=== PATIENT | male | born 1955 | race Caucasian/White ===

== ENCOUNTER 2023-01-25 10:07 | Outpatient (REF) | payer OTHER, SELFPAY ==
[2023-01-25 11:21] LABS: MANUAL DIFF FLAG NO
[2023-01-25 11:41] LABS: Basophils Absolute Auto 0.1 X10*3/uL (0.0-0.2); Basophils Percent Auto 1.1 % (0-2); Eosinophils Absolute Auto 0.2 X10*3/uL (0.0-0.4); Eosinophils Percent Auto 2.5 % (0-4); Hematocrit 42.1 % (42.0-52.0); Hemoglobin 13.7 g/dl (14.0-18.0); Imm Gran Abs Auto 0.01 X10*3/uL (0.00-0.03); Imm Gran Pct Auto 0.2 % (0.0-0.4); Lymphocytes Absolute Auto 2.1 X10*3/uL (1.2-4.9); Lymphocytes Percent Auto 32.2 % (20-40); Mean Corpuscular HGB Conc 32.5 g/dl (31.0-36.0); Mean Corpuscular Hemoglobin 30.6 pg (27.0-33.0); Mean Corpuscular Volume 94.2 fL (80.0-98.0); Mean Platelet Volume 10.3 fL (9.4-12.4); Monocytes Absolute Auto 0.5 X10*3/uL (0.1-1.2); Monocytes Percent Auto 7.6 % (2-11); Neutrophils Absolute Auto 3.6 x10*3/uL (2.0-8.3); Neutrophils Percent Auto 56.4 % (45-73); Platelet Count 282 X10*3/uL (160-400); Red Blood Count 4.47 X10*6/uL (4.60-5.80); Red Cell Distribution Width 12.1 % (11.0-16.0); White Blood Count 6.5 X10*3/uL (4.8-10.8)
[2023-01-25 12:50] LABS: Alanine Aminotransferase 18 U/L (0-40); Albumin Level 4.1 g/dL (3.5-5.0); Alkaline Phosphatase 71 U/L (39-117); Anion Gap 11 (12-20); Aspartate Amino Transferase 22 U/L (5-37); Bilirubin Total 0.6 mg/dL (0.0-1.0); Blood Urea Nitrogen 12 mg/dL (9-16); Calcium 9.3 mg/dL (8.4-10.2); Carbon Dioxide 28 mmol/L (22-29); Chloride 103 mmol/L (96-108); Cholesterol 219 mg/dL; Estimated Glomerular Filt Rate > 60; Glucose Fasting 105 mg/dL (60-99); HDL Cholesterol 61 mg/dL; LDL Cholesterol Calculated 143 mg/dl; Potassium 4.8 mmol/L (3.3-5.1); Sodium 137 mmol/L (135-145); TSH reflex Free T4 1.77 uIU/mL (0.32-4.0); Total Protein 7.2 g/dL (6.5-8.0); Triglycerides 77 mg/dL
[2023-01-31 22:29] LABS: PSA, Ultra Sensitive 1.81 ng/mL
== END 2023-01-25 10:08 | disposition home or self-care (01) ==
LOC: HO.WFDLDS 10:07
PROVIDERS: Visit Provider Nurse Practitioner Family
DX: Z00.00 Encounter for general adult medical examination without abnormal findings (principal); Z12.5 Encounter for screening for malignant neoplasm of prostate
CPT/HCPCS: 36415; 80053; 80061; 84153; 84443; 85025

== ENCOUNTER 2023-01-28 12:45 | Outpatient (REF) | payer OTHER, SELFPAY ==
[2023-01-28 14:49] LABS: Appearance Urine Clear; Color Urine Yellow; Glucose Urine UA Negative (Negative); Leukocyte Esterase Urine Negative (Negative); Nitrite Urine Negative (Negative); Urine Blood Negative (Negative); Urine Ketones Negative (Negative); Urine Protein Negative (Neg-Trace)
== END 2023-01-28 12:46 | disposition home or self-care (01) ==
LOC: HO.WFDLDS 12:45
PROVIDERS: Visit Provider Nurse Practitioner Family
DX: Z00.00 Encounter for general adult medical examination without abnormal findings (principal)
CPT/HCPCS: 81003

== ENCOUNTER 2023-02-05 13:01 | Outpatient (AMB) | payer OTHER, SELFPAY ==
[2023-02-05 13:08] VITALS: BP 154/72; PULSE 67; RESP 13; TEMP 36.6; O2SAT 99; BMI 27.8
--- NOTE | 2023-02-05 13:08 | MHC.PC.OV ---
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 Accompanied by: Self / Same As Patient Allergies No Known Allergies Allergy (Verified 02/05/23 13:19) Medication List - Last Reconciled 02/05/23 by Kathy Davenport CNP No Known Home Meds Tobacco use date assessed: 01/07/23 Fall risk assessment: No Falls in past year Last assessed Fall Risk: 02/05/23 Dental Screening Dental Screen Date: 02/05/23 Did you have a dental visit in the last 12 months?: Yes Did you have a dental problem in the last 6 months where you did not have access to dental care?: No Was dental information given to patient?: Patient has dentist HPI HPI Comments History of Present Illness Details 68-year-old male presents for recent labs review. He establish care a month ago and had blood work done. No acute symptoms. He notes that was contacted by Ophthalmology and will schedule an appointment. He has not been contacted by Gastroenterology. [facility] Medical History No pertinent past medical history Surgical History History of arthroscopic surgery of shoulder Family History Father Stomach cancer Social History Housing: House Patient Tobacco Use Status: Former Tobacco user e-Cigarette/Vaping Use: Never Used service: No Current occupational status: retired Cognitive needs: No Hearing needs: No Vision needs: Yes Review of Systems Const Details: Const Denies chills, Denies fatigue, Denies fever(s), Denies headache(s) and Denies weakness ENT Denies dizziness and Denies headache(s) Card Denies chest pain, Denies lightheadedness, Denies dyspnea and Denies other (Palpitations) Resp Denies cough, Denies dyspnea, Denies wheezing and Denies other ( shortness of breath) GI Denies abdominal pain, Denies melena, Denies hematochezia, Denies change in bowel habits, Denies dyspepsia and Denies nausea Denies hematuria and Denies dysuria Musc Denies abnormal gait, Denies myalgias, Denies arthralgias, Denies numbness and Denies tingling Skin/Breast Denies rash, Denies unusual bruising and Denies wounds Neuro Denies abnormal gait, Denies dizziness, Denies headache(s), Denies memory loss, Denies numbness, Denies Sensory deficit (Neuro), Denies tingling and Denies weakness Psych Denies anxiety and Denies depression Endo Denies fatigue Aller/Immun Denies wheezing Physical exam (Primary Care) Vital Signs: Last Vital Signs Temp 97.9 F 02/05/23 13:08 Pulse 67 02/05/23 13:08 Resp 13 02/05/23 13:08 BP 154/72 H 02/05/23 13:08 Pulse Ox 99 02/05/23 13:08 Oxygen Delivery Method Room Air 02/05/23 13:08 BMI result Body Mass Index 27.8 Tobacco/Smoking Status: Tobacco use Status Tobacco use date assessed 01/07/23 02/05/23 13:15 Patient Tobacco Use Status Former Tobacco user 02/05/23 13:15 e-Cigarette/Vaping Use Never Used 02/05/23 13:15 Const Other: General: no acute distress and well developed Nutritional Appearance: well nourished Orientation/consciousness: patient oriented x3 HENMT Head: Yes normocephalic and Yes atraumatic Eyes General: appearance normal, both eyes and all related structures Pupils: Equal, round and reactive pupils present EOM: EOMs intact bilaterally Resp Effort & Inspection: normal respiratory effort Auscultation: clear to auscultation bilaterally Cardio Rate: regular rate Rhythm: regular rhythm Heart sounds: S1 normal heart sound present, S2 normal heart sound present, no gallops, no murmurs and no rubs GI Palpation (GI): No Abdominal aortic bruit present, Soft to palpation, nontender, No hepatosplenomegaly present and No Rebound tenderness present Auscultation: normal bowel sounds General: Yes no CVA tenderness Back/Spine/Pelvis Back: no CVA tenderness Cervical Spine: cervical ROM normal and No Cervical spine tenderness Thoracic/Lumbar Spine: thoraco-lumbar ROM normal, No pain with thoraco-lumbar ROM, No thoracic spinal tenderness and No lumbar spinal tenderness Extrem General: Yes normal to inspection, No edema and No calf tenderness Skin General: warm and dry. Normal skin color. Normal skin turgor Lesions: no lesions Rashes: no rashes Trauma: no lacerations or abrasions Wounds: no wounds Nails: normal Neuro General: patient oriented x3, gait normal and no focal neuro deficit Cranial nerves: Yes Equal, round and reactive pupils present Cognition (Neuro): normal cognition Gait exam (Neuro): Normal gait present Sensory Exam: No Sensory deficit (Neuro) Psych Affect: normal affect Assessment and Plan Assessment & Plan (1) Elevated fasting glucose: Code(s): R73.01 - Impaired fasting glucose Plan: Recent lab results review with the patient His fasting glucose was slightly elevated Fasting glucose ordered. Advised to fast for at least 10-12 hours before getting blood work done. May drink water Verbalized understanding and agreed with the plan (2) Hypercholesterolemia: Code(s): E78.00 - Pure hypercholesterolemia, unspecified Plan: Recent lab results review with the patient Total cholesterol and LDL were slightly elevated Advised to limit foods high in saturated fat and avoid foods high in trans fat Routine exercise encouraged Verbalized understanding and agreed with the plan. (3) Elevated BP without diagnosis of hypertension: Code(s): R03.0 - Elevated blood-pressure reading, without diagnosis of hypertension Plan: Blood pressure was elevated upon arrival Resting blood pressure is 138/70, within goal of less than 140/90 Low-sodium diet and routine exercise encouraged Follow-up with PCP in 2 months Verbalized understanding and agreed with treatment plan. Orders: Orders Glucose Fasting Today R73.01 - Impaired fasting glucose Coding Level of Care Code Est Pt Level 3 (39093) Diagnoses Elevated fasting glucose R73.01 Hypercholesterolemia E78.00 Elevated BP without diagnosis of hypertension R03.0 Time Spent (min) 25
[2023-02-05 13:34] VITALS: BP 138/70
== END 2023-02-05 13:43 | disposition home or self-care (01) ==
PROVIDERS: PCP Hospitalist; Visit Provider Nurse Practitioner Family
DX: R73.01 Impaired fasting glucose (principal); E78.00 Pure hypercholesterolemia, unspecified; R03.0 Elevated blood-pressure reading, without diagnosis of hypertension
CPT/HCPCS: 99213

== ENCOUNTER 2023-02-19 13:57 | Outpatient (AMB) | payer OTHER, SELFPAY ==
--- NOTE | 2023-02-19 13:59 | MHC.OFFVIS ---
Intake Vital Signs 02/19/23 14:01 Height 5 ft 8 in Weight 180 lb BMI 27.4 BP 142/82 H Blood Pressure Location Lt brachial Position Sitting Pulse 80 Intake Visit Reasons: pre colonoscopy screening Intake Note: Patient new consult for 3rd pre colonoscopy screening. Patient denies any GI issues. 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 He has a good appetite He is retired, he does drink alcohol typically when he golfs He has no respiratory or cardiac issues He had a knee injury the other day when he jumped off a something that was higher than he had expected. Causes him to limp has been taking ibuprofen pretty regularly, he has an appointment in the next couple weeks with his PCP. He does have swelling, there was no laceration. [facility] Medical History (Updated 02/20/23 @ 09:40 by Annie Sepulveda PA-C) No pertinent past medical history Surgical History History of arthroscopic surgery of shoulder Family History Father Stomach cancer Social History (Updated 02/19/23 @ 14:07 by Annie Sepulveda PA-C) Housing: House Alcohol intake: current Patient Tobacco Use Status: Former Tobacco user e-Cigarette/Vaping Use: Never Used service: No Current occupational status: retired Cognitive needs: No Hearing needs: No Vision needs: Yes Review of Systems Const All systems reviewed & are unremarkable except as noted in HPI and below Card Denies chest pain and Denies dyspnea Resp Denies dyspnea GI Denies abdominal pain, Denies hematochezia, Denies change in bowel habits, Denies change in stool character, Denies constipation, Denies heartburn and Denies vomiting Musc Reports abnormal gait and Reports joint swelling Neuro Reports abnormal gait Physical Exam Vital Signs: Last Vital Signs Pulse 80 02/19/23 14:01 BP 142/82 H 02/19/23 14:01 BMI result Body Mass Index 27.4 Const General: cooperative, healthy appearing and no acute distress Orientation/consciousness: patient oriented x3 Limitations: no limitations Cardio Rate: regular rate Rhythm: regular rhythm Heart sounds: S1 normal heart sound present and S2 normal heart sound present GI Palpation (GI): Soft to palpation and nontender Auscultation: normal bowel sounds Skin General skin exam: no rashes or lesions noted and other (sun tanned) Neuro General: patient oriented x3 Extrem General: Yes full ROM Right lower extremity: knee Details: tenderness (mild) and swelling Psych Appearance: grossly normal and well kempt Mental Status: mental status grossly normal Speech and movement: Clear speech present Affect: Labile affect present Attitude: cooperative Thought process: Normal thought process present Thought content: Normal thought content present Insight: Good insight present (Psych) Judgement: Good judgement present (Psych) Assessment & Plan Assessment & Plan (1) Right knee injury: Comment: Go to [facility]- Swelling- pulses+ +ROM omeprazole -20 mg- while taking IBU Code(s): S89.91XA - Unspecified injury of right lower leg, initial encounter (2) Encounter for screening colonoscopy: Comment: Due for average risk screening colonoscopy Discussed procedure, prep, need for escorted due to anesthesia and rare risks Code(s): Z12.11 - Encounter for screening for malignant neoplasm of colon Plan: Screening colonoscopy Plan Colonoscopy- MG prep Orders: Orders Colonoscopy - GI Use Only 02/19/23 Z12.11 - Encounter for screening for malignant neoplasm of colon XR knee RT 3V 02/19/23 S89.91XA - Unspecified injury of right lower leg, initial encounter Medications: New omeprazole 20 mg PO DAILY 30 caps 5RF bisacodyl (Dulcolax (bisacodyl)) Take 4 tablets by mouth at 12:00pm the day before your procedure. 20 mg (4 x 5 mg) PO ONCE 1 day 4 tabs 0RF colonoscopy prep Z12.11 - Encounter for screening for malignant neoplasm of colon polyethylene glycol 3350 (Miralax) Take as directed by mouth the day before your procedure. 238 grams PO ONCE 1 day PRN 238 grams 0RF laxative effect Patient Instructions: A pleasant 68-year-old male referred for screening colonoscopy presents with right knee injury U/C for right knee injury- swelling- put in for a an x-ray a however encouraged him to go to urgent care today has their expertise will serve him well Screening colonoscopy, MiraLax Gatorade prep literature given Encouraged to call with questions or concerns Appreciate the opportunity assist in the care the patient Coding Level of Care Code New Pt Level 4 (67150) Diagnoses Right knee injury S89.91XA Encounter for screening colonoscopy Z12.11 Time Spent (min) 30
[2023-02-19 14:01] VITALS: BP 142/82; PULSE 80; BMI 27.4
== END 2023-02-19 15:06 | disposition home or self-care (01) ==
LOC: HO.HGIW 13:57
PROVIDERS: PCP Hospitalist; Visit Provider Physician Assistant
DX: Z01.818 Encounter for other preprocedural examination (principal); Z12.11 Encounter for screening for malignant neoplasm of colon; S89.91XA Unspecified injury of right lower leg, initial encounter
CPT/HCPCS: S0285

== ENCOUNTER → 2023-02-19 13:57 | Outpatient (BNVA) | payer OTHER, SELFPAY | PROVIDERS: PCP Hospitalist; Visit Provider Physician Assistant ==

== ENCOUNTER 2023-02-20 10:55 | Outpatient (AMB) | payer OTHER, SELFPAY ==
--- NOTE | 2023-02-20 10:58 | MHC.OFFWIV ---
Intake Vital Signs 02/20/23 11:00 Height 5 ft 8 in Weight 81.647 kg BMI 27.4 BP 158/70 H Blood Pressure Location Lt brachial Position Sitting Pulse 78 Pulse Source Pulse Oximeter Temp 96.9 F Temp Source Temporal Artery Scan Pulse Oximetry (%) 98 Oxygen Delivery Method Room Air Intake Visit Reasons: EST/right knee pain Intake Note: Pt is here c/o right knee pain. Pt states no falls or injuries. Patient Tobacco Use Status: Former Tobacco user Allergies No Known Allergies Allergy (Verified 02/20/23 10:59) Do you need a note to return to daycare/school/sports/work: No HPI HPI Comments History of Present Illness Details 1110 68-year-old male presents with atraumatic right-sided knee pain, going on for the past few weeks worsening over the past few days. Patient reports pain is worse with movement better at rest. Denies fevers, chills, numbness, tingling, chest pain, shortness of breath, trauma, nausea, vomiting, headache, vision changes, dizziness and weakness. Denies skin changes. No previous issues with right knee. PE w/ No lower extremity edema.? No calf ttp. 5/5 strength to bilateral upper and lower extremities 2+ popliteal, anterior tibialis, posterior tibialis and dorsalis pedis pulses equal bilateral, no foot drop normal sensation distally full range of motion, painless to bilateral knees, ankles. No step-offs or deformities. Negative anterior, posterior drawer, negative valgus and varus. No laxity. + small effusion to R. knee Likely sprain, strain versus inflammatory arthritis w/ a/c effusion. Unlikely gout, pseudogout, septic joint, threat to Limb, neurovascular compromise, arterial or venous occlusion. Unlikely fracture, dislocation. Unlikely acute ligament or tendon injury. Plan will send short course of prednisone for suspected inflammatory arthritis reba wrap applied. Xray ordered. Educated patient on diagnosis and treatment plan, answered all question, patient verbalizes understanding. At this time patient will be discharged home, advised to return with new or worsening symptoms. Educated on worrisome signs and symptoms and when to return. At this time I feel comfortable discharge home. [facility] Medical History No pertinent past medical history Surgical History History of arthroscopic surgery of shoulder Family History Father Stomach cancer Social History Housing: House Alcohol intake: current Patient Tobacco Use Status: Former Tobacco user e-Cigarette/Vaping Use: Never Used service: No Current occupational status: retired Cognitive needs: No Hearing needs: No Vision needs: Yes Review of Systems Const Details: Constitutional : No Weight loss, No Fever, No Chills, No Fatigue, No Malaise ENT/Mouth : No sore throat, No Rhinorrhea Eyes: No Eye Pain, No Swelling, No Redness Cardiovascular : No Chest Pain, No SOB, No Dyspnea on Exertion, No Orthopnea, No Edema, No Palpitations Respiratory : No Cough, No Sputum, No Wheezing Gastrointestinal : No Nausea, No Vomiting, No Diarrhea, No Constipation, No abdominal Pain, No Hematochezia, No Melena Genitourinary : No Dysuria, No Urinary Frequency, No Hematuria, Musculoskeletal : + joint pain, No Myalgias, No Joint Swelling Skin : No Skin Lesions, No rash Neuro : No Weakness, No Numbness, No Dizziness, No Headache Psych : No Anxiety/Panic, No Depression All other systems reviewed and are negative All systems reviewed & are unremarkable except as noted in HPI and below Physical Exam Vital Signs: Last Vital Signs Temp 96.9 F 02/20/23 11:00 Pulse 78 02/20/23 11:00 BP 158/70 H 02/20/23 11:00 Pulse Ox 98 02/20/23 11:00 Oxygen Delivery Method Room Air 02/20/23 11:00 BMI result Body Mass Index 27.4 Vital signs stable Appearance: Alert.? Oriented X3.? No acute distress.? Head: Normocephalic, atraumatic, no step-offs or deformities Eyes: Pupils equal, round and reactive to light.? CVS: Normal heart rate and rhythm.? Pulses normal.? Respiratory: No respiratory distress.? Breath sounds normal.? Skin: Skin warm and dry.? Normal skin color.? Normal skin turgor.?+ small effusion to R. knee Extremities: No lower extremity edema.? No calf ttp. 5/5 strength to bilateral upper and lower extremities 2+ popliteal, anterior tibialis, posterior tibialis and dorsalis pedis pulses equal bilateral, no foot drop normal sensation distally full range of motion, painless to bilateral knees, ankles. No step-offs or deformities. Negative anterior, posterior drawer, negative valgus and varus. No laxity. Neuro: Oriented X 3.? No motor deficit.? No sensory deficit. CN 2-12 intact . Ambulating with steady gait normal coordination Assessment & Plan Assessment & Plan (1) Right knee pain: Code(s): M25.561 - Pain in right knee Plan TAKE YOUR MEDICATIONS PRESCRIBED. IF YOU WERE PRESCRIBED ANTIBIOTICS TODAY, IT IS IMPORTANT THAT YOU TAKE YOUR MEDICATION TO THEIR ENTIRETY, DO NOT SKIP ANY DOSES, DO NOT FINISH THEM EARLY. FOLLOW-UP WITH YOUR PRIMARY CARE PROVIDER THIS WEEK. RETURN TO THE EMERGENCY DEPARTMENT WITH NEW OR WORSENING SYMPTOMS. SUCH FEVERS, CHILLS, CHEST PAIN, SHORTNESS OF BREATH, NAUSEA, VOMITING, DIZZINESS, HEADACHE, VISION CHANGES, LETHARGY IN CASE OF EMERGENCY CALL 911 Orders: Orders XR knee RT 2V Today M25.561 - Pain in right knee Medications: New prednisone 40 mg (2 x 20 mg) PO DAILY 10 tabs 0RF 5 days Coding Level of Care Code Est Pt Level 3 (26488) Diagnoses Right knee pain M25.561
[2023-02-20 11:00] VITALS: BP 158/70; PULSE 78; TEMP 36.1; O2SAT 98; BMI 27.4
== END 2023-02-20 12:44 | disposition home or self-care (01) ==
PROVIDERS: PCP Hospitalist; Visit Provider Physician Assistant
DX: M25.561 Pain in right knee (principal)
CPT/HCPCS: 99213

== ENCOUNTER 2023-02-20 11:17 | Outpatient (REF) | payer OTHER, SELFPAY ==
--- NOTE | ~2023-02-20 | XR_ITS ---
EXAMINATION: XR KNEE, RIGHT CLINICAL INFORMATION: Pain COMPARISON: None available. TECHNIQUE: Four views of the right knee. FINDINGS: No acute visible fracture or dislocation. Mild multicompartment arthritic changes. Joint spaces and alignment are otherwise maintained. Moderate to large joint effusion. Soft tissues are unremarkable. Atherosclerotic calcifications are noted. XR/XR knee RT 4V IMPRESSION: 1. No acute visible fracture or dislocation. 2. Mild multicompartment arthritic changes. 3. Moderate to large joint effusion.
== END 2023-02-20 11:18 | disposition home or self-care (01) ==
LOC: HO.HMGCX 11:17
PROVIDERS: PCP Hospitalist; Visit Provider Physician Assistant
DX: M25.561 Pain in right knee (principal)
CPT/HCPCS: 73564

== ENCOUNTER 2023-02-26 16:24 | Outpatient (AMB) | payer OTHER, SELFPAY ==
[2023-02-26 16:29] VITALS: BP 150/82; PULSE 73; RESP 12; TEMP 36.4; O2SAT 99; BMI 28.2
--- NOTE | 2023-02-26 16:29 | MHC.PC.OV ---
Vital Signs 02/26/23 16:29 Height 5 ft 8 in Weight 185 lb 6 oz BMI 28.2 BP 150/82 H Blood Pressure Location Lt brachial Position Sitting Respiration 12 Pulse 73 Pulse Source Pulse Oximeter Temp 97.6 F Temp Source Temporal Artery Scan Pulse Oximetry (%) 99 Oxygen Delivery Method Room Air Intake Visit Reasons: R knee injury Intake Note: Patient states that he had x-rays done on his knee, x-ray showed fluid in the knee and possible arthritis. Patient states he is seeing someone at Ortho at [facility]. Patient would like prednisone refilled. Svp Marketing Required: No Accompanied by: self Allergies No Known Allergies Allergy (Verified 02/26/23 16:36) Medication List - Last Reconciled 02/26/23 by Kathy Davenport CNP prednisone 40 mg (2 x 20 mg) PO DAILY 5 days Tobacco use date assessed: 01/07/23 Fall risk assessment: No Falls in past year Last assessed Fall Risk: 02/26/23 Dental Screening Dental Screen Date: 02/26/23 Did you have a dental visit in the last 12 months?: Yes Did you have a dental problem in the last 6 months where you did not have access to dental care?: No Was dental information given to patient?: Patient has dentist HPI HPI Comments History of Present Illness Details 68-year-old male presents with complaints of right knee pain follow-up. He notes the pain has been ongoing for the past 3 weeks. He started experiencing the pain after he twisted his knee while helping his friend with some work on a trailer. [place] [facility] [place] for right knee pain, x-ray ordered, prednisone prescribed daily for 5 days. X-ray revealed the following: IMPRESSION: 1.? No acute visible fracture or dislocation. 2.? Mild multicompartment arthritic changes. 3.? Moderate to large joint effusion. He reports persistent pain with has significantly improved since he started taking prednisone. He denies tingling, numbness, or loss of sensation. He notes he has a [place] [facility] [place] [facility] Medical History No pertinent past medical history Surgical History History of arthroscopic surgery of shoulder Family History Father Stomach cancer Social History Housing: House Alcohol intake: current Patient Tobacco Use Status: Former Tobacco user e-Cigarette/Vaping Use: Never Used service: No Current occupational status: retired Cognitive needs: No Hearing needs: No Vision needs: Yes Review of Systems Const Details: Const Denies chills, Denies fatigue, Denies fever(s), Denies headache(s) and Denies weakness ENT Denies dizziness and Denies headache(s) Card Denies chest pain, Denies lightheadedness, Denies dyspnea and Denies other (Palpitations) Resp Denies cough, Denies dyspnea, Denies wheezing and Denies other ( shortness of breath) GI Denies abdominal pain, Denies melena, Denies hematochezia, Denies change in bowel habits, Denies dyspepsia and Denies nausea Denies hematuria and Denies dysuria Musc Reports as per HPI Skin/Breast Denies rash, Denies unusual bruising and Denies wounds Neuro Denies reports unsteady gait, Denies dizziness, Denies headache(s), Denies memory loss, Denies numbness, Denies Sensory deficit (Neuro), Denies tingling and Denies weakness Psych Denies anxiety, Denies depression, Denies memory loss Endo Denies cold intolerance, Denies fatigue, Denies heat intolerance, Denies polydipsia and Denies polyuria Aller/Immun Denies wheezing Physical exam (Primary Care) Tobacco/Smoking Status: Tobacco use Status Tobacco use date assessed 01/07/23 02/21/23 08:26 Patient Tobacco Use Status Former Tobacco user 02/21/23 08:26 e-Cigarette/Vaping Use Never Used 02/21/23 08:26 Const Other: General: no acute distress and well developed Nutritional Appearance: well nourished Orientation/consciousness: patient oriented x3 HENMT Head: Yes normocephalic and Yes atraumatic Eyes General: appearance normal, both eyes and all related structures Pupils: Equal, round and reactive pupils present EOM: EOMs intact bilaterally Resp Effort & Inspection: normal respiratory effort Auscultation: clear to auscultation bilaterally Cardio Rate: regular rate Rhythm: regular rhythm Heart sounds: S1 normal heart sound present, S2 normal heart sound present, no gallops, no murmurs and no rubs GI Palpation (GI): No Abdominal aortic bruit present, Soft to palpation, nontender, No hepatosplenomegaly present and No Rebound tenderness present Auscultation: normal bowel sounds General: Yes no CVA tenderness Back/Spine/Pelvis Back: no CVA tenderness Cervical Spine: cervical ROM normal and No Cervical spine tenderness Thoracic/Lumbar Spine: thoraco-lumbar ROM normal, No pain with thoraco-lumbar ROM, No thoracic spinal tenderness and No lumbar spinal tenderness Extrem General: Yes normal to inspection, No calf tenderness Mild edema and tenderness to right knee Skin General: warm and dry. Normal skin color. Normal skin turgor Neuro General: patient oriented x3, gait unsteady, and no focal neuro deficit Cranial nerves: Yes Equal, round and reactive pupils present Cognition (Neuro): normal cognition Gait exam (Neuro): Unsteady gait present Sensory Exam: No Sensory deficit (Neuro) Psych Appearance: grossly normal Affect: normal affect Attitude: cooperative Thought process: Normal thought process present Assessment and Plan Assessment & Plan (1) Right knee pain: Code(s): M25.561 - Pain in right knee Plan: Right knee pain with arthritic changes and large joint effusion Unsteady gait favoring the right lower extremity. Right knee with mild edema and tenderness to palpation Naproxen ordered. Take as prescribed and after completion of prednisone Warm/cold compresses encouraged Follow-up with Ortho as scheduled Return with worsening or new symptoms Verbalized understanding and agreed with treatment plan. (2) Hypertension: Code(s): I10 - Essential (primary) hypertension Plan: His blood pressure has been elevated on several occasions Blood pressures today is 150/82, above goal of less than 140/90 Amlodipine ordered. Take as prescribed Low-sodium diet encouraged Follow-up for nurse visit in 2 weeks for blood pressure check Return in 1 month or sooner with concerns or symptoms Verbalized understanding and agreed with treatment plan. Medications: New naproxen 500 mg PO BID PRN 28 tabs 0RF pain 14 days amlodipine 2.5 mg PO DAILY 30 tabs 3RF 30 days Coding Level of Care Code Est Pt Level 3 (23389) Diagnoses Right knee pain M25.561 Hypertension I10 Time Spent (min) 25
== END 2023-02-26 16:58 | disposition home or self-care (01) ==
PROVIDERS: PCP Hospitalist; Visit Provider Nurse Practitioner Family
DX: M25.561 Pain in right knee (principal); I10 Essential (primary) hypertension
CPT/HCPCS: 99213

== ENCOUNTER 2023-02-27 13:38 | Outpatient (AMB) | payer OTHER, SELFPAY ==
--- NOTE | 2023-02-27 14:10 | MHC.OFFVIS ---
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 The patient states that injured his knee approximately 6 months ago while stepping off of a trailer. He twisted his knee and had acute onset of pain. Since that time his symptoms have gotten worse in spite of continued non operative treatments. He has done physical therapy for 12 weeks over the last 6 months which aggravated his pain. He has also tried Tylenol, Aleve and prednisone which gave him minimal relief. He has had injections in the past which gave him only temporary relief. The patient states that his right knee will give out several times per day. Allergies No Known Allergies Allergy (Verified 02/27/23 14:25) Medication List - Last Reconciled 02/27/23 by Abdirashid Acevedo MD amlodipine 2.5 mg PO DAILY 30 days naproxen 500 mg PO BID PRN 14 days prednisone 40 mg (2 x 20 mg) PO DAILY 5 days [facility] Medical History No pertinent past medical history Surgical History History of arthroscopic surgery of shoulder Family History Father Stomach cancer Social History Housing: House Alcohol intake: current Patient Tobacco Use Status: Former Tobacco user e-Cigarette/Vaping Use: Never Used service: No Current occupational status: retired Cognitive needs: No Hearing needs: No Vision needs: Yes Physical Exam Vital Signs: BMI result Body Mass Index 28.1 Const Other: Well-nourished well-developed very friendly male awake alert and oriented x3 in no acute distress Extrem Other: Bilateral lower extremity examination shows good capillary refill, no skin lesions noted, normal sensation light touch Right knee examination shows a minimal effusion, minimal crepitus with range of motion, tenderness along his medial joint line, positive Marily's test, no instability Results Reviewed Results Reviewed: X-rays of the patient's right knee show mild diffuse joint space narrowing, no acute bony abnormalities Assessment & Plan Assessment & Plan (1) Tear of medial meniscus of right knee: Code(s): S83.241A - Other tear of medial meniscus, current injury, right knee, initial encounter Plan Mr. Underwood presents with progressively worsening right knee pain and mechanical symptoms most likely due to tearing of his medial meniscus. Thus, I will send the patient for an MRI of his right knee for further evaluation. I will see him back once the MRI is completed to discuss the findings and treatment options. Feel free to call me at any time should questions regarding his orthopedic management arise. Thank you very much for asking me to see this very friendly gentleman. I spent 22 minutes in reviewing the patient's records and imaging studies, seeing the patient and documenting in the medical record. Orders: Orders MR knee RT wo con Today S83.241A - Other tear of medial meniscus, current injury, right knee, initial encounter Medications: New hydrocodone-acetaminophen 5-325 mg Partial Fill upon patient request. 1 tab PO BID PRN 30 tabs 0RF pain Coding Level of Care Code New Pt Level 2 (08822) Diagnoses Tear of medial meniscus of right knee S83.241A
[2023-02-27 14:26] VITALS: BMI 28.1
== END 2023-02-27 14:54 | disposition home or self-care (01) ==
PROVIDERS: PCP Hospitalist; Visit Provider Orthopaedic Surgery
DX: S83.241A Other tear of medial meniscus, current injury, right knee, initial encounter (principal)
CPT/HCPCS: 99202

== ENCOUNTER → 2023-02-27 13:38 | Outpatient (BNVA) | payer OTHER, SELFPAY | PROVIDERS: PCP Hospitalist; Visit Provider Orthopaedic Surgery ==

== ENCOUNTER 2023-03-15 14:59 | Outpatient (AMB) | payer OTHER, SELFPAY ==
[2023-03-15 15:16] VITALS: BP 136/74; PULSE 114; RESP 12; TEMP 36.6; O2SAT 99
--- NOTE | 2023-03-15 15:16 | A.OFFPC_ITS ---
Vital Signs 03/15/23 15:16 Height 5 ft 8 in BMI Reason not done Patient refused/unable BP 136/74 Blood Pressure Location Lt brachial Position Sitting Respiration 12 Pulse 114 H Pulse Source Pulse Oximeter Temp 97.9 F Temp Source Temporal Artery Scan Pulse Oximetry (%) 99 Oxygen Delivery Method Room Air Intake Visit Reasons: right knee pain / swelling Intake Note: Patient states that he needs refills for Hydrocodone, Tizanidine, and Prednisone. Patient states that he has been taking more than what is prescribed due to the dosage that was prescribed not working. Patient is asking if there is something else he can take for his pain. 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 He has history of chronic right knee pain. He was evaluated by [facility] on 02/27/2023. Percocet was prescribed. MRI was ordered. The plan is to review MRI results and discuss the findings and treatment options with the patient. He reports continued persistent right knee pain and swelling. No tingling, numbness, loss of sensation. He requests refill of Percocet and prednisone. Percocet was prescribed on 03/08/2023 twice a day as needed, 30 counts. He presented four remaining Percocet tablet in the medication bottle. He notes he has an MRI scheduled for 03/17/2023. [facility] Medical History No pertinent past medical history Surgical History History of arthroscopic surgery of shoulder Family History Father Stomach cancer Social History (Reviewed 02/27/23 @ 14:25 by Mariah Cabrera [facility] Housing: House Alcohol intake: current Patient Tobacco Use Status: Former Tobacco user e-Cigarette/Vaping Use: Never Used service: No Current occupational status: retired Cognitive needs: No Hearing needs: No Vision needs: Yes Review of Systems Const Details: Const Denies chills, Denies fatigue, Denies fever(s), Denies headache(s) and Denies weakness ENT Denies dizziness and Denies headache(s) Card Denies chest pain, Denies lightheadedness, Denies dyspnea and Denies other (Palpitations) Resp Denies cough, Denies dyspnea, Denies wheezing and Denies other ( shortness of breath) GI Denies abdominal pain, Denies melena, Denies hematochezia, Denies change in bowel habits, Denies dyspepsia and Denies nausea Denies hematuria and Denies dysuria Musc Reports as per HPI Skin/Breast Denies rash, Denies unusual bruising and Denies wounds Neuro Reports abnormal gait, Denies dizziness, Denies headache(s), Denies memory loss, Denies numbness, Denies Sensory deficit (Neuro), Denies tingling and Denies weakness Psych Denies anxiety, Denies depression, Denies memory loss Endo Denies cold intolerance, Denies fatigue, Denies heat intolerance, Denies polydipsia and Denies polyuria Aller/Immun Denies wheezing Physical exam (Primary Care) Vital Signs: Last Vital Signs Temp 97.9 F 03/15/23 15:16 Pulse 114 H 03/15/23 15:16 Resp 12 03/15/23 15:16 BP 136/74 03/15/23 15:16 Pulse Ox 99 03/15/23 15:16 Oxygen Delivery Method Room Air 03/15/23 15:16 Tobacco/Smoking Status: Tobacco use Status Tobacco use date assessed 01/07/23 03/15/23 15:29 Patient Tobacco Use Status Former Tobacco user 03/15/23 15:29 e-Cigarette/Vaping Use Never Used 03/15/23 15:29 Const Other: General: no acute distress and well developed Nutritional Appearance: well nourished Orientation/consciousness: patient oriented x3 HENMT Head: Yes normocephalic and Yes atraumatic Eyes General: appearance normal, both eyes and all related structures Pupils: Equal, round and reactive pupils present EOM: EOMs intact bilaterally Resp Effort & Inspection: normal respiratory effort Auscultation: clear to auscultation bilaterally Cardio Rate: regular rate Rhythm: regular rhythm Heart sounds: S1 normal heart sound present, S2 normal heart sound present, no gallops, no murmurs and no rubs GI Palpation (GI): No Abdominal aortic bruit present, Soft to palpation, nontender, No hepatosplenomegaly present and No Rebound tenderness present Auscultation: normal bowel sounds General: Yes no CVA tenderness Back/Spine/Pelvis Back: no CVA tenderness Cervical Spine: cervical ROM normal and No Cervical spine tenderness Thoracic/Lumbar Spine: thoraco-lumbar ROM normal, No pain with thoraco-lumbar ROM, No thoracic spinal tenderness and No lumbar spinal tenderness Extrem General: Yes normal to inspection, and No calf tenderness Right knee with tenderness and mild edema, no overt injury or trauma Skin General: warm and dry. Normal skin color. Normal skin turgor Lesions: no lesions Rashes: no rashes Trauma: no lacerations or abrasions Wounds: no wounds Nails: normal Neuro General: patient oriented x3, no focal neuro deficit Cranial nerves: Yes Equal, round and reactive pupils present Cognition (Neuro): normal cognition Gait exam (Neuro): Ambulates with crutches Sensory Exam: No Sensory deficit (Neuro) Psych Appearance: grossly normal Affect: normal affect Attitude: cooperative Thought process: Normal thought process present Assessment and Plan Assessment & Plan (1) Tear of medial meniscus of right knee: Code(s): S83.241A - Other tear of medial meniscus, current injury, right knee, initial encounter Plan: Right knee with tenderness and mild edema, no overt injury or trauma Prednisone ordered. Take as prescribed Percocet as prescribed. He is informed that he should have 15 remaining tablet of Percocet and therefore cannot be refilled at this time Warm/cool compresses encouraged Weight-bearing as tolerable Follow-up with orthopedics as planned Return with worsening or new symptoms Verbalized understanding and agreed with treatment plan. Medications: Changed From prednisone 40 mg (2 x 20 mg) PO DAILY 5 days 10 tabs 0RF To prednisone 40 mg (2 x 20 mg) PO DAILY 7 days 14 tabs 0RF Refilled hydrocodone-acetaminophen 5-325 mg Partial Fill upon patient request. 1 tab PO BID PRN 30 tabs 0RF pain Coding Level of Care Code Est Pt Level 3 (22039) Diagnoses Tear of medial meniscus of right knee S83.241A
== END 2023-03-15 15:50 | disposition home or self-care (01) ==
PROVIDERS: PCP Hospitalist; Visit Provider Nurse Practitioner Family
DX: S83.241A Other tear of medial meniscus, current injury, right knee, initial encounter (principal)
CPT/HCPCS: 99213

== ENCOUNTER 2023-03-19 13:19 | Outpatient (AMB) | payer OTHER, SELFPAY ==
--- NOTE | 2023-03-19 13:21 | MHC.OFFVIS ---
Intake Intake Visit Reasons: EP, MRI Follow Up R knee Intake Note: Raghav is a 68 year old male who presents today as a new patient with complaints of right knee pain and giving way.? The patient states that injured his knee approximately 6 months ago while stepping off of a trailer.? He twisted his knee and had acute onset of pain.? Since that time his symptoms have gotten worse in spite of continued non operative treatments.? He has done physical therapy for 12 weeks over the last 6 months which aggravated his pain.? He has also tried Tylenol, Aleve and prednisone which gave him minimal relief.? He has had injections in the past which gave him only temporary relief.? The patient states that his right knee will give out several times per day. Allergies No Known Allergies Allergy (Verified 03/19/23 13:22) Medication List - Last Reconciled 03/19/23 by Abdirashid Acevedo MD amlodipine 2.5 mg PO DAILY 30 days hydrocodone-acetaminophen 5-325 mg 1 tab PO BID PRN hydrocodone-acetaminophen 5-325 mg 1 tab PO Q8H PRN naproxen 500 mg PO BID PRN 14 days PFSH Medical History No pertinent past medical history Surgical History History of arthroscopic surgery of shoulder Family History Father Stomach cancer Social History Housing: House Alcohol intake: current Patient Tobacco Use Status: Former Tobacco user e-Cigarette/Vaping Use: Never Used service: No Current occupational status: retired Cognitive needs: No Hearing needs: No Vision needs: Yes Physical Exam Const Other: Well-nourished well-developed very friendly male awake alert and oriented x3 in no acute distress Lungs clear to auscultation bilaterally with symmetric expansion Cardiovascular exam regular rate rhythm Abdominal exam is soft nontender nondistended Extrem Other: Bilateral lower extremity examination shows good capillary refill, no skin lesions noted, normal sensation light touch Right knee examination shows a moderate effusion, mild crepitus with range of motion, tenderness along his medial and lateral joint lines, positive Marily's test, no instability Results Reviewed Results Reviewed: MRI of the patient's right knee shows mild diffuse degenerative changes as well as tearing of his medial meniscus, possible tearing of his lateral meniscus, no acute bony abnormalities Assessment & Plan Assessment & Plan (1) Tear of medial meniscus of right knee: Code(s): S83.241A - Other tear of medial meniscus, current injury, right knee, initial encounter Plan Mr. Underwood presents with progressively worsening right knee pain and mechanical symptoms to a medial meniscus tear and possible lateral meniscus tearing. I had a lengthy discussion with the patient regarding the treatment options. At this point he has failed continued non operative treatments. The risks and benefits of right knee arthroscopic surgery were discussed at length with the patient. The patient wishes to proceed with surgery. He does understand that he may not get 100% relief of his symptoms depending on the severity of his degenerative changes. Surgery will most likely involve right knee diagnostic arthroscopy with partial medial meniscectomy as well as possible partial lateral meniscectomy. The patient will contact my office to pick a surgery date. He will follow-up as instructed. I did refill his prescription for Vicodin to help with his pain in the meantime. Feel free to call me at any time should questions regarding his orthopedic management arise. I spent 22 minutes in reviewing the patient's records and imaging studies, seeing the patient and documenting in the medical record. Medications: New hydrocodone-acetaminophen 5-325 mg Partial Fill upon patient request. 1 tab PO Q8H PRN 40 tabs 0RF pain Coding Level of Care Code Est Pt Level 2 (20990) Diagnoses Tear of medial meniscus of right knee S83.241A
== END 2023-03-19 13:47 | disposition home or self-care (01) ==
PROVIDERS: PCP Hospitalist; Visit Provider Orthopaedic Surgery
DX: S83.241A Other tear of medial meniscus, current injury, right knee, initial encounter (principal)
CPT/HCPCS: 99212

== ENCOUNTER → 2023-03-19 13:19 | Outpatient (BNVA) | payer OTHER, SELFPAY | PROVIDERS: PCP Hospitalist; Visit Provider Orthopaedic Surgery ==

== ENCOUNTER 2023-03-27 15:28 | Outpatient (AMB) | payer OTHER, SELFPAY ==
--- NOTE | 2023-03-27 15:37 | MHC.PC.OV ---
Vital Signs 03/27/23 15:41 Height 5 ft 8 in Weight 177 lb 6 oz BMI 27.0 BP 134/64 Blood Pressure Location Lt brachial Position Sitting Respiration 12 Pulse 83 Pulse Source Pulse Oximeter Temp 97.8 F Temp Source Temporal Artery Scan Pulse Oximetry (%) 97 Oxygen Delivery Method Room Air Intake Visit Reasons: f/u HTN Intake Note: Patient states he would like a new script for his prednisone. Patient states hes interested in an anti-inflammatory due to his hands locking up when he is sleeping. 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 by: Self / Same As Patient Allergies No Known Allergies Allergy (Verified 03/27/23 16:09) Medication List - Last Reconciled 03/27/23 by Kathy Davenport CNP amlodipine 2.5 mg PO DAILY 30 days hydrocodone-acetaminophen 5-325 mg 1 tab PO BID PRN hydrocodone-acetaminophen 5-325 mg 1 tab PO Q8H PRN naproxen 500 mg PO BID PRN 14 days Tobacco use date assessed: 01/07/23 Fall risk assessment: No Falls in past year Last assessed Fall Risk: 03/27/23 Dental Screening Dental Screen Date: 03/27/23 Did you have a dental visit in the last 12 months?: Yes Did you have a dental problem in the last 6 months where you did not have access to dental care?: No Was dental information given to patient?: Patient has dentist HPI HPI Comments History of Present Illness Details 68 y/o male presents for HTN follow up. He notes he has been taking amlodipine as prescribed. He reports continued right knee pain he notes he is scheduled for surgery later this month. He is currently on Vicodin for pain. [facility] Medical History No pertinent past medical history Surgical History History of arthroscopic surgery of shoulder Family History Father Stomach cancer Social History Housing: House Alcohol intake: current Patient Tobacco Use Status: Former Tobacco user e-Cigarette/Vaping Use: Never Used service: No Current occupational status: retired Cognitive needs: No Hearing needs: No Vision needs: Yes Review of Systems Const Details: Const Denies chills, Denies fatigue, Denies fever(s), Denies headache(s) and Denies weakness ENT Denies dizziness and Denies headache(s) Card Denies chest pain, Denies lightheadedness, Denies dyspnea and Denies other (Palpitations) Resp Denies cough, Denies dyspnea, Denies wheezing and Denies other ( shortness of breath) GI Denies abdominal pain, Denies melena, Denies hematochezia, Denies change in bowel habits, Denies dyspepsia and Denies nausea Denies hematuria and Denies dysuria Musc Reports as per HPI Skin/Breast Denies rash, Denies unusual bruising and Denies wounds Neuro Denies abnormal gait, Denies dizziness, Denies headache(s), Denies memory loss, Denies numbness, Denies Sensory deficit (Neuro), Denies tingling and Denies weakness Psych Denies anxiety, Denies depression, Denies memory loss Endo Denies cold intolerance, Denies fatigue, Denies heat intolerance, Denies polydipsia and Denies polyuria Aller/Immun Denies wheezing Physical exam (Primary Care) Vital Signs: Last Vital Signs Temp 97.8 F 03/27/23 15:41 Pulse 83 03/27/23 15:41 Resp 12 03/27/23 15:41 BP 134/64 03/27/23 15:41 Pulse Ox 97 03/27/23 15:41 Oxygen Delivery Method Room Air 03/27/23 15:41 BMI result Body Mass Index 27.0 Tobacco/Smoking Status: Tobacco use Status Tobacco use date assessed 01/07/23 03/27/23 15:38 Patient Tobacco Use Status Former Tobacco user 03/27/23 15:38 e-Cigarette/Vaping Use Never Used 03/27/23 15:38 Const Other: General: no acute distress and well developed Nutritional Appearance: well nourished Orientation/consciousness: patient oriented x3 HENMT Head: Yes normocephalic and Yes atraumatic Eyes General: appearance normal, both eyes and all related structures Pupils: Equal, round and reactive pupils present EOM: EOMs intact bilaterally Resp Effort & Inspection: normal respiratory effort Auscultation: clear to auscultation bilaterally Cardio Rate: regular rate Rhythm: regular rhythm Heart sounds: S1 normal heart sound present, S2 normal heart sound present, no gallops, no murmurs and no rubs GI Palpation (GI): No Abdominal aortic bruit present, Soft to palpation, nontender, No hepatosplenomegaly present and No Rebound tenderness present Auscultation: normal bowel sounds General: Yes no CVA tenderness Back/Spine/Pelvis Back: no CVA tenderness Cervical Spine: cervical ROM normal and No Cervical spine tenderness Thoracic/Lumbar Spine: thoraco-lumbar ROM normal, No pain with thoraco-lumbar ROM, No thoracic spinal tenderness and No lumbar spinal tenderness Extrem General: Yes normal to inspection, No edema and No calf tenderness Right knee tenderness to palpation Skin General: warm and dry. Normal skin color. Normal skin turgor Lesions: no lesions Rashes: no rashes Trauma: no lacerations or abrasions Wounds: no wounds Nails: normal Neuro General: patient oriented x3, ambulates with crutches, no focal neuro deficit Cranial nerves: Yes Equal, round and reactive pupils present Cognition (Neuro): normal cognition Gait exam (Neuro): Ambulates with crutches Sensory Exam: No Sensory deficit (Neuro) Psych Appearance: grossly normal Affect: normal affect Attitude: cooperative Thought process: Normal thought process present Assessment and Plan Assessment & Plan (1) Hypertension: Code(s): I10 - Essential (primary) hypertension Plan: Blood pressure is controlled, 134/64, within goal of less than 140/90 Continue with current treatment regimen Low-sodium diet encouraged Follow-up in 3 months or return sooner with concerns or symptoms Verbalized understanding and agreed with treatment plan. (2) Tear of medial meniscus of right knee: Code(s): S83.241A - Other tear of medial meniscus, current injury, right knee, initial encounter Plan: Reports continued right knee pain Right knee tenderness to palpation He is currently using crutches for ambulation He is followed by Orthopedic surgery and notes he is scheduled for surgery later this month Continue with current treatment regimen Follow-up with orthopedic surgery as planned Return as needed Verbalized understanding and agreed with treatment plan. Coding Level of Care Code Est Pt Level 3 (22722) Diagnoses Hypertension I10 Tear of medial meniscus of right knee S83.241A
[2023-03-27 15:41] VITALS: BP 134/64; PULSE 83; RESP 12; TEMP 36.6; O2SAT 97; BMI 27.0
== END 2023-03-27 16:22 | disposition home or self-care (01) ==
PROVIDERS: PCP Hospitalist; Visit Provider Nurse Practitioner Family
DX: I10 Essential (primary) hypertension (principal); S83.241A Other tear of medial meniscus, current injury, right knee, initial encounter
CPT/HCPCS: 99213

== ENCOUNTER 2023-04-09 15:31 | Outpatient (AMB) | payer OTHER, SELFPAY ==
--- NOTE | 2023-04-09 15:34 | A.OFFPC_ITS ---
Vital Signs 04/09/23 15:35 Height 5 ft 8 in Weight 177 lb 4 oz BMI 26.9 BP 144/68 H Blood Pressure Location Lt brachial Position Sitting Respiration 12 Pulse 95 Pulse Source Pulse Oximeter Temp 97.8 F Temp Source Temporal Artery Scan Pulse Oximetry (%) 99 Oxygen Delivery Method Room Air Intake Visit Reasons: Preop Cataract Surgery - 04/15 Intake Note: Patient states that he stopped using cane and crutch due to Right hand taking all the weight and becoming very swollen and painful. Patient would like something to bring down pain in his hand as well as swelling. 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 Required: No Accompanied by: Self / Same As Patient Allergies No Known Allergies Allergy (Verified 04/09/23 15:45) Medication List - Last Reconciled 04/09/23 by Kathy Davenport CNP amlodipine 2.5 mg PO DAILY 30 days hydrocodone-acetaminophen 5-325 mg 1 tab PO BID PRN hydrocodone-acetaminophen 5-325 mg 1 tab PO Q8H PRN naproxen 500 mg PO BID PRN 14 days Tobacco use date assessed: 01/07/23 Fall risk assessment: No Falls in past year Last assessed Fall Risk: 04/09/23 Dental Screening Dental Screen Date: 04/09/23 Did you have a dental visit in the last 12 months?: Yes Did you have a dental problem in the last 6 months where you did not have access to dental care?: No Was dental information given to patient?: Patient has dentist HPI HPI Comments History of Present Illness Details 68-year-old male presents for a preop ex am for right eye cataract surgery scheduled on 04/15/2023. He reports right hand pain and swelling from 6 weeks of using a cane and crutches to ambulate. He states he stopped using the assistive devices for ambulation because of his signs and symptoms. He has a torn meniscus of the right need which he notes would be surgically repaired on 04/12/2023. [facility] Medical History No pertinent past medical history Surgical History History of arthroscopic surgery of shoulder Family History Father Stomach cancer Social History Housing: House Alcohol intake: current Patient Tobacco Use Status: Former Tobacco user e-Cigarette/Vaping Use: Never Used service: No Current occupational status: retired Cognitive needs: No Hearing needs: No Vision needs: Yes Review of Systems Const Details: Const Denies chills, Denies fatigue, Denies fever(s), Denies headache(s) and Denies weakness ENT Denies dizziness and Denies headache(s) Card Denies chest pain, Denies lightheadedness, Denies dyspnea and Denies other (Palpitations) Resp Denies cough, Denies dyspnea, Denies wheezing and Denies other ( shortness of breath) GI Denies abdominal pain, Denies melena, Denies hematochezia, Denies change in bowel habits, Denies dyspepsia and Denies nausea Denies hematuria and Denies dysuria Musc Reports right hand pain and swelling, Reports right knee pain, Denies tingling, Denies Dumbness Skin/Breast Denies rash, Denies unusual bruising and Denies wounds Neuro Denies abnormal gait, Denies dizziness, Denies headache(s), Denies memory loss, Denies numbness, Denies Sensory deficit (Neuro), Denies tingling and Denies weakness Psych Denies anxiety, Denies depression, Denies memory loss Endo Denies cold intolerance, Denies fatigue, Denies heat intolerance, Denies polydipsia and Denies polyuria Aller/Immun Denies wheezing Denies as per HPI Physical exam (Primary Care) Vital Signs: Last Vital Signs Temp 97.8 F 04/09/23 15:35 Pulse 95 04/09/23 15:35 Resp 12 04/09/23 15:35 BP 144/68 H 04/09/23 15:35 Pulse Ox 99 04/09/23 15:35 Oxygen Delivery Method Room Air 04/09/23 15:35 BMI result Body Mass Index 26.9 Tobacco/Smoking Status: Tobacco use Status Tobacco use date assessed 01/07/23 04/09/23 15:34 Patient Tobacco Use Status Former Tobacco user 04/09/23 15:34 e-Cigarette/Vaping Use Never Used 04/09/23 15:34 Const Other: General: no acute distress and well developed Nutritional Appearance: well nourished Orientation/consciousness: patient oriented x3 HENMT Head: Yes normocephalic and Yes atraumatic Eyes General: appearance normal, both eyes and all related structures Pupils: Equal, round and reactive pupils present EOM: EOMs intact bilaterally Resp Effort & Inspection: normal respiratory effort Auscultation: clear to auscultation bilaterally Cardio Rate: regular rate Rhythm: regular rhythm Heart sounds: S1 normal heart sound present, S2 normal heart sound present, no gallops, no murmurs and no rubs GI Palpation (GI): No Abdominal aortic bruit present, Soft to palpation, nontender, No hepatosplenomegaly present and No Rebound tenderness present Auscultation: normal bowel sounds General: Yes no CVA tenderness Back/Spine/Pelvis Back: no CVA tenderness Cervical Spine: cervical ROM normal and No Cervical spine tenderness Thoracic/Lumbar Spine: thoraco-lumbar ROM normal, No pain with thoraco-lumbar ROM, No thoracic spinal tenderness and No lumbar spinal tenderness Extrem General: Yes normal to inspection, No calf tenderness Moderate edema of the right hand, no erythema, normal radial pulse, cap refill less than 2 seconds Ambulate with a slight limp favoring his right lower extremity Skin General: warm and dry. Normal skin color. Normal skin turgor Lesions: no lesions Rashes: no rashes Trauma: no lacerations or abrasions Wounds: no wounds Nails: normal Neuro General: patient oriented x3, unsteady gait, and no focal neuro deficit Cranial nerves: Yes Equal, round and reactive pupils present Cognition (Neuro): normal cognition Gait exam (Neuro): Normal gait present Sensory Exam: No Sensory deficit (Neuro) Psych Appearance: grossly normal Affect: normal affect Attitude: cooperative Thought process: Normal thought process present Assessment and Plan Assessment & Plan (1) Preop examination: Code(s): Z01.818 - Encounter for other preprocedural examination Plan: Blood pressure is 144/60, slightly above goal of less than 140/90; may be attributed to pain Advised to continue to take amlodipine as prescribed Patient is medically stable Recent lab results are within normal limits No current medical contraindication for cataract surgery of the right eye (2) Pain in right hand: Code(s): M79.641 - Pain in right hand Plan: Moderate edema of the right hand, no erythema, normal radial pulse, cap refill less than 2 seconds May be attributed to muscular trauma from repeated use of cane and crutches Naproxen ordered. Take as prescribed Advised to rest, ice, and elevate the right hand Return with worsening or new symptoms Verbalized understanding and agreed with treatment plan. (3) Tear of medial meniscus of right knee: Code(s): S83.241A - Other tear of medial meniscus, current injury, right knee, initial encounter Plan: Continue with current treatment regimen by Orthopedics Follow-up for surgery later this week as planned Return with worsening or new symptoms Verbalized understanding and agreed with treatment plan. Medications: Refilled naproxen 500 mg PO BID 14 days PRN 28 tabs 0RF pain Coding Level of Care Code Est Pt Level 3 (28013) Diagnoses Preop examination Z01.818 Pain in right hand M79.641 Tear of medial meniscus of right knee S83.241A
[2023-04-09 15:35] VITALS: BP 144/68; PULSE 95; RESP 12; TEMP 36.6; O2SAT 99; BMI 26.9
== END 2023-04-09 16:03 | disposition home or self-care (01) ==
PROVIDERS: PCP Hospitalist; Visit Provider Nurse Practitioner Family
DX: Z01.818 Encounter for other preprocedural examination (principal); M79.641 Pain in right hand; S83.241A Other tear of medial meniscus, current injury, right knee, initial encounter
CPT/HCPCS: 99213

== ENCOUNTER 2023-04-12 06:39 | Day surgery (SDC) | payer OTHER, SELFPAY ==
[2023-04-10 10:10] VITALS: BMI 27.0
--- NOTE | 2023-04-12 07:18 | HO.ANESPROP2 ---
HPI - Anesthesia Eval Consult details Narrative: Knee arthroscopy for torn meniscus PMFSH Active Problems Active Problems: All Active Problems (Updated 04/09/23 @ 16:06 by Kathy Davenport CNP) Pain in right hand (Acute) Preop examination (Acute) Tear of medial meniscus of right knee (Acute) Hypertension (Acute) Encounter for screening colonoscopy (Acute) Right knee injury (Acute) Elevated BP without diagnosis of hypertension (Acute) Hypercholesterolemia (Acute) Elevated fasting glucose (Acute) Vaccine counseling (Acute) Laboratory tests ordered as part of a complete physical exam (CPE) (Acute) Colon cancer screening (Acute) Blurry vision, right eye (Acute) Normal physical examination, routine (Acute) Past Medical History Medical History No pertinent past medical history Family History Family History Father Stomach cancer Family history of problems with anesthesia: No Surgical History Surgical History History of arthroscopic surgery of shoulder History of Problems with Anesthesia: No Social History Social History Housing: House Alcohol intake: current Patient Tobacco Use Status: Former Tobacco user e-Cigarette/Vaping Use: Never Used Advance Directives: No Advance Directives Information Provided: Yes service: No Current occupational status: retired Cognitive needs: No Hearing needs: No Vision needs: Yes Meds Allergies Allergy/AdvReac Type Severity Reaction Status Date / Time No Known Allergies Allergy Verified 04/09/23 15:45 Exam Exam Date and Time: April 12, 2023 0718 Height,Weight and Vital Signs: Height 5 ft 8 in Weight 80.467 kg Airway Mallampati Class: II Neck ROM: Limited Heart: rrr Lungs: cta Assessment and Plan Final Anesthetic Review Family History of Problems with Anesthesia: No History of Problems with Anesthesia: No NPO: Yes ASA Class: II Final Preanesthetic Review: No Changes in Pt Med Stat, Meds/Allgs Chart Reviewed, Consent Obtained/Reviewed and Anes Risks/Benef Reviewed Patient Risk: Low Procedure Risk: Low Anesthetic Plan Anesthetic Plan: GA and Agree w/ Assess. and Plan Disposition: Standard PACU
[2023-04-12 07:32] VITALS: BP 186/76; PULSE 70; RESP 16; TEMP 36.7; O2SAT 98
[2023-04-12] MEDS: Albuterol Sulfate (0.083%) 2.5 MG/3 ML VIAL.NEB INHALE (07:56)
[2023-04-12 09:00] VITALS: BP 152/62; PULSE 78; RESP 16; TEMP 36.2; O2SAT 100
[2023-04-12 09:05] VITALS: BP 155/65; PULSE 72; RESP 18; O2SAT 100
[2023-04-12 09:10] VITALS: BP 158/64; PULSE 80; RESP 18; O2SAT 95
[2023-04-12 09:15] VITALS: BP 175/63; PULSE 70; RESP 18; O2SAT 95
[2023-04-12 09:29] VITALS: BP 154/66; PULSE 70; RESP 18; TEMP 36.6; O2SAT 96
== END 2023-04-12 10:20 | disposition home or self-care (01) ==
PROVIDERS: PCP Hospitalist; Visit Provider Orthopaedic Surgery
PROC: (CPT 29870; principal; 2023-04-12 08:40)
DX: S83.241A Other tear of medial meniscus, current injury, right knee, initial encounter (principal); S83.281A Other tear of lateral meniscus, current injury, right knee, initial encounter; X50.1XXA Overexertion from prolonged static or awkward postures, initial encounter; I10 Essential (primary) hypertension; E78.00 Pure hypercholesterolemia, unspecified; Z87.891 Personal history of nicotine dependence; Z79.899 Other long term (current) drug therapy; Y93.9 Activity, unspecified; Y92.9 Unspecified place or not applicable; Y99.9 Unspecified external cause status
CPT/HCPCS: 29880; J0171; J0690; J1100; J1885; J2250; J2405; J2795; J3010

== ENCOUNTER → 2023-04-12 10:00 | Outpatient (BNV) | payer OTHER, SELFPAY | PROVIDERS: PCP Hospitalist; Visit Provider Orthopaedic Surgery | DX: S83.231A Complex tear of medial meniscus, current injury, right knee, initial encounter (principal); S83.271A Complex tear of lateral meniscus, current injury, right knee, initial encounter; M17.11 Unilateral primary osteoarthritis, right knee | CPT/HCPCS: 29880 ==

== ENCOUNTER 2023-04-25 14:27 | Outpatient (AMB) | payer OTHER, SELFPAY ==
--- NOTE | 2023-04-25 14:38 | A.OFFVIS_ITS ---
Intake Intake Visit Reasons: PO-Rt Knee 04/12/23 Intake Note: Raghav a 68 year old male presents today for a post operative right knee , DOS 04/12/23 Patient reports he is doing well, he states having numbness and tingling in his hand due to use of walker and cane. Allergies No Known Allergies Allergy (Verified 04/25/23 14:59) HPI PO-Rt Knee 04/12/23 HPI Details 68-year-old male who returns to the [facility] today for post-op right knee , 04/12/[address] Acevedo. He states he has no pain but does c/o numbness and tingling in his hand due to the use of walker and cane. He is doing well otherwise and has no other concerns today. Pre-op diagnosis: Right knee medial meniscus tear, right knee lateral meniscus tear, right knee degenerative joint disease Post-op diagnosis: same Procedure: Right knee diagnostic arthroscopy with right knee arthroscopic partial medial and lateral meniscectomies, right knee arthroscopic chondroplasty of the undersurface of the patella as well as the medial femoral condyle [facility] Medical History No pertinent past medical history Surgical History History of arthroscopic surgery of shoulder Family History Father Stomach cancer Social History Housing: House Alcohol intake: current Patient Tobacco Use Status: Former Tobacco user e-Cigarette/Vaping Use: Never Used service: No Current occupational status: retired Cognitive needs: No Hearing needs: No Vision needs: Yes Review of Systems Const All systems reviewed & are unremarkable except as noted in HPI and below Physical Exam Extrem Other: Right knee: Incision clean, dry and intact. No erythema, no joint effusion. ROM is 0-95 degrees. Calf supple, nontender. NVI. Assessment & Plan Assessment & Plan (1) H/O arthroscopy of right knee: Code(s): Z98.890 - Other specified postprocedural states (2) Tear of medial meniscus of right knee: Code(s): S83.241A - Other tear of medial meniscus, current injury, right knee, initial encounter Qualifiers: Tear current or old: current Plan Sutures removed today, steri strips applied. he will begin physical therapy to work on ROM, quad strengthening and gait training. He will increase activity as tolerated and see me back in [address] Acevedo soonrohini if needed. Orders: Orders PT Evaluation and Treatment 04/25/23 S83.241A - Other tear of medial meniscus, current injury, right knee, initial encounter, Z98.890 - Other specified postprocedural states Patient Instructions: Scribed for Cy Tate PA-C, by Miguel Angel Wren medical instrument technician, on 04/25/2023 at 2:30 PM EST. ICy PA-C, have personally reviewed and agree with the information entered by the scribe. Coding Level of Care Code Global (92344) Diagnoses H/O arthroscopy of right knee Z98.890 Tear of medial meniscus of right knee S83.241A Tear current or old: current
== END 2023-04-25 15:39 | disposition home or self-care (01) ==
PROVIDERS: PCP Hospitalist; Visit Provider Physician Assistant
DX: Z98.890 Other specified postprocedural states (principal); S83.241A Other tear of medial meniscus, current injury, right knee, initial encounter
CPT/HCPCS: 99024

== ENCOUNTER → 2023-04-25 14:27 | Outpatient (BNVA) | payer OTHER, SELFPAY | PROVIDERS: PCP Hospitalist; Visit Provider Physician Assistant ==

== ENCOUNTER 2023-05-07 14:53 | Outpatient (AMB) | payer OTHER, SELFPAY ==
--- NOTE | 2023-05-07 15:04 | A.OFFPC_ITS ---
Vital Signs 05/07/23 15:06 05/07/23 15:34 Height 5 ft 8 in Weight 178 lb 6 oz BMI 27.1 BP 142/74 H 154/80 H Blood Pressure Location Lt brachial Rt brachial Position Sitting Sitting Respiration 13 Pulse 81 Pulse Source Pulse Oximeter Temp 98 F Temp Source Temporal Artery Scan Pulse Oximetry (%) 98 Oxygen Delivery Method Room Air Intake Visit Reasons: f/u HTN and health maintenance Intake Note: Patient states that he would like a referral to a specialist for right hand. 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 Accompanied by: Self / Same As Patient Allergies No Known Allergies Allergy (Verified 05/07/23 15:12) Medication List - Last Reconciled 05/07/23 by Kathy Davenport CNP acetaminophen-codeine 300-30 mg 1 tab PO Q6H PRN amlodipine 2.5 mg PO DAILY 30 days hydrocodone-acetaminophen 5-325 mg 1 tab PO BID PRN hydrocodone-acetaminophen 5-325 mg 1 tab PO Q8H PRN naproxen 500 mg PO BID PRN 14 days Tobacco use date assessed: 01/07/23 Fall risk assessment: No Falls in past year Last assessed Fall Risk: 05/07/23 Dental Screening Dental Screen Date: 05/07/23 Did you have a dental visit in the last 12 months?: Yes Did you have a dental problem in the last 6 months where you did not have access to dental care?: No Was dental information given to patient?: Patient has dentist HPI HPI Comments History of Present Illness Details 68-year-old male presents for [facility] follow-up. He has history of hypertension and right knee pain with torn medial meniscus which was surgically repaired on 04/12/2023. He will start PT next week. He reports continued bilat hand swelling with constant tingling/numbness of the right 3rd digit and intermittent tingling/numbness the other fingers of both hands; right worse than left. He attributes the swelling, tingling, and numbness to persistent use of crutches and a cane for ambulation before his right knee was repaired. He stopped using assistive devices for walking 3 weeks ago and his signs and symptoms have not improved or resolved. No loss of sensation. [facility] Medical History No pertinent past medical history Surgical History History of arthroscopic surgery of shoulder Family History Father Stomach cancer Social History Housing: House Alcohol intake: current Patient Tobacco Use Status: Former Tobacco user e-Cigarette/Vaping Use: Never Used service: No Current occupational status: retired Cognitive needs: No Hearing needs: No Vision needs: Yes Review of Systems Const Details: Const Denies chills, Denies fatigue, Denies fever(s), Denies headache(s) and Denies weakness ENT Denies dizziness and Denies headache(s) Card Denies chest pain, Denies lightheadedness, Denies dyspnea and Denies other (Palpitations) Resp Denies cough, Denies dyspnea, Denies wheezing and Denies other ( shortness of breath) GI Denies abdominal pain, Denies melena, Denies hematochezia, Denies change in bowel habits, Denies dyspepsia and Denies nausea Denies hematuria and Denies dysuria Musc Reports as per HPI Skin/Breast Denies rash, Denies unusual bruising and Denies wounds Neuro Denies abnormal gait, Denies dizziness, Denies headache(s), Denies memory loss, Denies numbness, Denies Sensory deficit (Neuro), Denies tingling and Denies weakness Psych Denies anxiety, Denies depression, Denies memory loss Endo Denies cold intolerance, Denies fatigue, Denies heat intolerance, Denies polydipsia and Denies polyuria Aller/Immun Denies wheezing Physical exam (Primary Care) Vital Signs: Last Vital Signs Temp 98 F 05/07/23 15:06 Pulse 81 05/07/23 15:06 Resp 13 05/07/23 15:06 BP 142/74 H 05/07/23 15:06 Pulse Ox 98 05/07/23 15:06 Oxygen Delivery Method Room Air 05/07/23 15:06 BMI result Body Mass Index 27.1 Tobacco/Smoking Status: Tobacco use Status Tobacco use date assessed 01/07/23 05/07/23 15:06 Patient Tobacco Use Status Former Tobacco user 05/07/23 15:06 e-Cigarette/Vaping Use Never Used 05/07/23 15:06 Const Other: General: no acute distress and well developed Nutritional Appearance: well nourished Orientation/consciousness: patient oriented x3 [facility] Head: Yes normocephalic and Yes atraumatic Eyes General: appearance normal, both eyes and all related structures Pupils: Equal, round and reactive pupils present EOM: EOMs intact bilaterally Resp Effort & Inspection: normal respiratory effort Auscultation: clear to auscultation bilaterally Cardio Rate: regular rate Rhythm: regular rhythm Heart sounds: S1 normal heart sound present, S2 normal heart sound present, no gallops, no murmurs and no rubs GI Palpation (GI): No Abdominal aortic bruit present, Soft to palpation, nontender, No hepatosplenomegaly present and No Rebound tenderness present Auscultation: normal bowel sounds General: Yes no CVA tenderness Back/Spine/Pelvis Back: no CVA tenderness Cervical Spine: cervical ROM normal and No Cervical spine tenderness Thoracic/Lumbar Spine: thoraco-lumbar ROM normal, No pain with thoraco-lumbar ROM, No thoracic spinal tenderness and No lumbar spinal tenderness Extrem General: Yes normal to inspection, No calf tenderness Moderate edema of both hands, no erythema, normal radial pulse, cap refill less than 2 seconds. Limited ROM of the fingers of both hands. Normal sensation to both hands Skin General: warm and dry. Normal skin color. Normal skin turgor Lesions: no lesions Rashes: no rashes Trauma: no lacerations or abrasions Wounds: no wounds Nails: normal Neuro General: patient oriented x3, gait normal and no focal neuro deficit Cranial nerves: Yes Equal, round and reactive pupils present Cognition (Neuro): normal cognition Gait exam (Neuro): Normal gait present Sensory Exam: No Sensory deficit (Neuro) Psych Appearance: grossly normal Affect: normal affect Attitude: cooperative Thought process: Normal thought process present Assessment and Plan Assessment & Plan (1) Hypertension: Code(s): I10 - Essential (primary) hypertension Qualifiers: Hypertension type: primary hypertension Qualified Code(s): I10 - Es sential (primary) hypertension Plan: Resting blood pressure is 154/80, above goal of less than 140/90 Advised to increase amlodipine to 5 mg daily. He notes he currently has a large quantity of 2.5 mg of amlodipine. Advised to take two 2.5 mg of amlodipine to equal 5 mg Low-sodium diet and routine exercise encouraged Follow-up for a nurse visit in 1 week for blood pressure check Return in 1 month or sooner with new or worsening symptoms Verbalized understanding and agreed with treatment plan. (2) Paresthesia of both hands: Code(s): R20.2 - Paresthesia of skin Plan: Reports swelling, tingling, numbness to both hands from using a cane and crutches when his right meniscus was torn. Right hand is worse than left. His symptoms have not improved even though he stopped using the assistive devices 3 weeks ago. Moderate edema of both hands, no erythema, normal radial pulse, cap refill less than 2 seconds. Limited ROM of the fingers of both hands. Normal sensation to both hands Likely tendinitis Take ibuprofen 600 mg every 6-8 hours for pain or discomfort Rest and elevate bilateral upper extremities to reduce edema Referred to hand surgery Follow-up with worsening or new signs and symptoms Verbalized understanding and agreed with the treatment plan. (3) Swelling of both hands: Code(s): M79.89 - Other specified soft tissue disorders Plan: As above Orders: Referrals Hand Surgery Referral M79.89 - Other specified soft tissue disorders, R20.2 - Paresthesia of skin Coding Level of Care Code Est Pt Level 4 (95769) Diagnoses Primary hypertension I10 Hypertension type: primary hypertension Paresthesia of both hands R20.2 Swelling of both hands M79.89
[2023-05-07 15:06] VITALS: BP 142/74; PULSE 81; RESP 13; TEMP 36.6; O2SAT 98; BMI 27.1
[2023-05-07 15:34] VITALS: BP 154/80
== END 2023-05-07 15:40 | disposition home or self-care (01) ==
PROVIDERS: PCP Nurse Practitioner Family; Visit Provider Nurse Practitioner Family
DX: I10 Essential (primary) hypertension (principal); R20.2 Paresthesia of skin; M79.89 Other specified soft tissue disorders
CPT/HCPCS: 99214

== ENCOUNTER 2023-05-10 11:09 | Outpatient (REF) | payer OTHER, SELFPAY ==
--- NOTE | ~2023-05-10 | XR_ITS ---
EXAMINATION: XR HAND, RIGHT XR HAND, LEFT CLINICAL INFORMATION: Anesthesia of skin. Rule out arthritis. COMPARISON: None available. TECHNIQUE: Three views were obtained of each hand. FINDINGS: RIGHT HAND: Moderate degenerative changes in the 1st carpometacarpal joint with joint space narrowing and hypertrophic change. Ulnar minus variance. Degenerative changes with moderate hypertrophic change in a few scattered IP joints, most notable in the 3rd digit DIP joint. LEFT HAND: Severe degenerative changes in the 1st carpometacarpal joint with joint space narrowing and hypertrophic change. No displaced fracture. Ulnar minus variance. XR/XR hand RT min 3V IMPRESSION: Degenerative changes in the bilateral 1st carpometacarpal joints, right greater than left. No displaced fracture. Recommend follow up imaging in 10-14 days if fracture is suspected.
--- NOTE | ~2023-05-10 | XR_ITS ---
EXAMINATION: XR HAND, RIGHT XR HAND, LEFT CLINICAL INFORMATION: Anesthesia of skin. Rule out arthritis. COMPARISON: None available. TECHNIQUE: Three views were obtained of each hand. FINDINGS: RIGHT HAND: Moderate degenerative changes in the 1st carpometacarpal joint with joint space narrowing and hypertrophic change. Ulnar minus variance. Degenerative changes with moderate hypertrophic change in a few scattered IP joints, most notable in the 3rd digit DIP joint. LEFT HAND: Severe degenerative changes in the 1st carpometacarpal joint with joint space narrowing and hypertrophic change. No displaced fracture. Ulnar minus variance. XR/XR hand LT min 3V IMPRESSION: Degenerative changes in the bilateral 1st carpometacarpal joints, right greater than left. No displaced fracture. Recommend follow up imaging in 10-14 days if fracture is suspected.
== END 2023-05-10 11:10 | disposition home or self-care (01) ==
LOC: HO.HOSX 11:09
PROVIDERS: PCP Nurse Practitioner Family; Visit Provider Physical Medicine & Rehabilitation
DX: R20.0 Anesthesia of skin (principal); R60.0 Localized edema
CPT/HCPCS: 73130

== ENCOUNTER 2023-05-10 11:09 | Outpatient (AMB) | payer OTHER, SELFPAY ==
--- NOTE | 2023-05-10 11:17 | A.OFFVIS_ITS ---
Intake Intake Visit Reasons: NewProb- B/L numbness and tingling of hands Intake Note: Raghav is a 68 year old male who presents today for a evaluation for his bilateral hand numbness and tingling. Patient reports ongoing pain for a couple months with no previous treatment. He states that his right hand is worse than the left hand. Having numbness and tingling on the thumb, pointer finger and middle finger on the right and for the left he is having numbness adn tingling on the thumb and pointer finger per patient. He reports numbness is worse at night. Allergies No Known Allergies Allergy (Verified 05/07/23 15:12) HPI HPI Comments History of Present Illness Details Patient had right knee meniscal injury few months ago, was using crutches and cane for ambulation. Started having hand numbness and pain, right worse than left, associated with the crutches and the cane use. Had successful surgery right knee on 04/12/2023. Has discontinued the assistive devices. But continues to have the right hand numbness. Numbness worse than right 1st to 3rd digits, and milder on left 1st to 2nd digits. Noted right hand to be more swollen. Denies any associated shoulder or neck pain difficulty with opening jars. No atrophy noted so far. Pain also wakes him up at night. Has tried 2 different kinds of wrist brace but it makes it feel more tight. Treatment done so far: NSAIDs, wrist brace PFSH Medical History No pertinent past medical history Surgical History History of arthroscopic surgery of shoulder Family History Father Stomach cancer Social History Housing: House Alcohol intake: current Patient Tobacco Use Status: Former Tobacco user e-Cigarette/Vaping Use: Never Used service: No Current occupational status: retired Cognitive needs: No Hearing needs: No Vision needs: Yes Review of Systems Const All systems reviewed & are unremarkable except as noted in HPI and below Physical Exam Constitutional: Patient appears to be in no acute distress, well nourished and well developed. MSK: Inspection reveals appropriate head and neck positioning. No pain with palpation over the neck musculature. Cervical ROM was full. Spurling's sign negative. Right hand appears more swollen but no specific swelling on the joints themselves or no sausage appearance of the fingers. No intrinsic hand weakness noted. No atrophy noted. Mariaa test negative. Carpal compression test positive bilateral. Tinel sign negative. Strength is 5/5 in all muscle groups tested. No increased tone noted. Neurological: Neurologic examination of the upper and lower extremities was nonfocal with intact sensation, muscle stretch reflexes and without focal motor deficits . Tan?s negative bilaterally. Gait is non-antalgic without loss of balance. Results Reviewed Results Reviewed: I reviewed records from the following: Ortho PCP Assessment & Plan Assessment & Plan (1) Hand numbness: Code(s): R20.0 - Anesthesia of skin (2) Swelling of both hands: Code(s): M79.89 - Other specified soft tissue disorders Plan Suspect Carpal Tunnel Syndrome from repetitive use of cane and crutches. Try removing the metal from the wrist splint and see if he can tolerate that better. Xray to rule out any arthritis and could help guide treatment. NCS/EMG to evaluate for entrapment neuropathy such as CTS. Assessment and plan discussed with patient, and patient was agreeable. All questions were answered thoroughly. Meggan Carroll MD, YE Board Certified, [place] [employer] and Rehabilitation (ABPMR) Board Certified, [place] Board of Electrodiagnostic Medicine (ABEM) Orders: Orders NE electromyogram (EMG) Today - Other specified soft tissue disorders, R20.0 - Anesthesia of skin XR hand RT min 3V Today M79.89 - Other specified soft tissue disorders, R20.0 - Anesthesia of skin NE nerve conduction velocity Today M. - Other specified soft tissue disorders, R20.0 - Anesthesia of skin XR hand LT min 3V Today M79.89 - Other specified soft tissue disorders, R20.0 - Anesthesia of skin Coding Level of Care Code New Pt Level 4 (13055) Diagnoses Hand numbness R20.0 Swelling of both hands M
== END 2023-05-10 12:12 | disposition home or self-care (01) ==
PROVIDERS: PCP Nurse Practitioner Family; Visit Provider Physical Medicine & Rehabilitation
DX: R20.0 Anesthesia of skin (principal); M79.89 Other specified soft tissue disorders
CPT/HCPCS: 99203

== ENCOUNTER 2023-06-11 15:38 | Outpatient (AMB) | payer OTHER, SELFPAY ==
--- NOTE | 2023-06-11 15:42 | A.OFFPC_ITS ---
Vital Signs 06/11/23 15:44 06/11/23 16:13 Height 5 ft 8 in Weight 175 lb 4 oz BMI 26.6 BP 144/80 H 146/70 H Blood Pressure Location Rt brachial Lt brachial Position Sitting Sitting Respiration 13 Pulse 88 Pulse Source Pulse Oximeter Temp 97.6 F Temp Source Temporal Artery Scan Pulse Oximetry (%) 99 Oxygen Delivery Method Room Air Intake Visit Reasons: f/u HTN Telephone Directory Deliverer Required: No Accompanied by: Self / Same As Patient Allergies No Known Allergies Allergy (Verified 06/11/23 15:51) Medication List - Last Reconciled 06/11/23 by Kathy Davenport CNP acetaminophen-codeine 300-30 mg 1 tab PO Q12H PRN amlodipine 5 mg PO DAILY 30 days hydrocodone-acetaminophen 5-325 mg 1 tab PO BID PRN hydrocodone-acetaminophen 5-325 mg 1 tab PO Q8H PRN naproxen 500 mg PO BID PRN 14 days Tobacco use date assessed: 01/07/23 Fall risk assessment: No Falls in past year Last assessed Fall Risk: 06/11/23 Dental Screening Dental Screen Date: 06/11/23 Did you have a dental visit in the last 12 months?: Yes Did you have a dental problem in the last 6 months where you did not have access to dental care?: No Was dental information given to patient?: Patient has dentist HPI HPI Comments History of Present Illness Details 68-year-old male presents for hypertensi on follow-up His blood pressure was 154/80 at his last office visit; improved to 130/68 during nursing visit for recheck a week later. Amlodipine was increased to 5 mg daily. He was encouraged to maintain a low-sodium diet He admits to taking his medications as prescribed without adverse reaction He offers no complaints and denies acute symptoms at this time [facility] Medical History No pertinent past medical history Surgical History History of arthroscopic surgery of shoulder Family History Father Stomach cancer Social History Housing: House Alcohol intake: current Comment: Not too bad. I can tell somebodys been in there pt states Patient Tobacco Use Status: Former Tobacco user e-Cigarette/Vaping Use: Never Used service: No Current occupational status: retired Cognitive needs: No Hearing needs: No Vision needs: No Review of Systems Const Details: Const Denies chills, Denies fatigue, Denies fever(s), Denies headache(s) and Denies weakness ENT Denies dizziness and Denies headache(s) Card Denies chest pain, Denies lightheadedness, Denies dyspnea and Denies other (Palpitations) Resp Denies cough, Denies dyspnea, Denies wheezing and Denies other ( shortness of breath) GI Denies abdominal pain, Denies melena, Denies hematochezia, Denies change in bowel habits, Denies dyspepsia and Denies nausea Denies hematuria and Denies dysuria Musc Denies abnormal gait, Denies myalgias, Denies arthralgias, Denies numbness and Denies tingling Skin/Breast Denies rash, Denies unusual bruising and Denies wounds Neuro Denies abnormal gait, Denies dizziness, Denies headache(s), Denies memory loss, Denies numbness, Denies Sensory deficit (Neuro), Denies tingling and Denies weakness Psych Denies anxiety, Denies depression, Denies memory loss Endo Denies cold intolerance, Denies fatigue, Denies heat intolerance, Denies polydipsia and Denies polyuria Aller/Immun Denies wheezing Physical exam (Primary Care) Tobacco/Smoking Status: Tobacco use Status Tobacco use date assessed 01/07/23 05/07/23 15:06 Patient Tobacco Use Status Former Tobacco user 05/07/23 15:06 e-Cigarette/Vaping Use Never Used 05/07/23 15:06 Const Other: General: no acute distress and well developed Nutritional Appearance: well nourished Orientation/consciousness: patient oriented x3 HENMT Head: Yes normocephalic and Yes atraumatic Eyes General: appearance normal, both eyes and all related structures Pupils: Equal, round and reactive pupils present EOM: EOMs intact bilaterally Resp Effort & Inspection: normal respiratory effort Auscultation: clear to auscultation bilaterally Cardio Rate: regular rate Rhythm: regular rhythm Heart sounds: S1 normal heart sound present, S2 normal heart sound present, no gallops, no murmurs and no rubs GI Palpation (GI): No Abdominal aortic bruit present, Soft to palpation, nontender, No hepatosplenomegaly present and No Rebound tenderness present Auscultation: normal bowel sounds General: Yes no CVA tenderness Back/Spine/Pelvis Back: no CVA tenderness Cervical Spine: cervical ROM normal and No Cervical spine tenderness Thoracic/Lumbar Spine: thoraco-lumbar ROM normal, No pain with thoraco-lumbar ROM, No thoracic spinal tenderness and No lumbar spinal tenderness Extrem General: Yes normal to inspection, No edema and No calf tenderness Skin General: warm and dry. Normal skin color. Normal skin turgor Lesions: no lesions Rashes: no rashes Trauma: no lacerations or abrasions Wounds: no wounds Nails: normal Neuro General: patient oriented x3, gait normal and no focal neuro deficit Cranial nerves: Yes Equal, round and reactive pupils present Cognition (Neuro): normal cognition Gait exam (Neuro): Normal gait present Sensory Exam: No Sensory deficit (Neuro) Psych Appearance: grossly normal Affect: normal affect Attitude: cooperative Thought process: Normal thought process present Assessment and Plan Assessment & Plan (1) Hypertension: Code(s): I10 - Essential (primary) hypertension Qualifiers: Hypertension type: primary hypertension Qualified Code(s): I10 - Essential (primary) hypertension Plan: Resting blood pressure is 146/70, above goal of less than 140/90 Amlodipine increased to 10 mg daily. Take as prescribed Low-sodium diet encouraged Follow-up in 1 month or return sooner with symptoms or concerns Verbalized understanding and agreed with treatment plan Medications: New amlodipine 10 mg PO DAILY 30 tabs 3RF 30 days Discontinued amlodipine Discontinued Reason: Doctor's Order 5 mg PO DAILY 30 tabs 3RF 30 days Coding Level of Care Code Est Pt Level 3 (80415) Diagnoses Primary hypertension I10 Hypertension type: primary hypertension
[2023-06-11 15:44] VITALS: BP 144/80; PULSE 88; RESP 13; TEMP 36.4; O2SAT 99; BMI 26.6
[2023-06-11 16:13] VITALS: BP 146/70
== END 2023-06-11 16:16 | disposition home or self-care (01) ==
PROVIDERS: PCP Nurse Practitioner Family; Visit Provider Nurse Practitioner Family
DX: I10 Essential (primary) hypertension (principal)
CPT/HCPCS: 99213

== ENCOUNTER 2023-06-14 14:24 | Outpatient (REF) | payer OTHER, SELFPAY ==
--- NOTE | 2023-06-14 14:26 | EMG_ITS ---
Chief complaint: Patient had right knee meniscal injury few months ago, was using crutches and cane for ambulation. Started having hand numbness and pain, right worse than left, associated with the crutches and the cane use. Had successful surgery right knee on 04/12/2023. Has discontinued the assistive devices. But continues to have the right hand numbness. Numbness worse than right 1st to 3rd digits, and milder on left 1st to 2nd digits. Reason for referral: Evaluate for Carpal Tunnel Syndrome Procedure done: Bilateral upper extremities NCS/EMG Precautions and/or limitations: None The limb temperature was monitored continuously and remained between 32-36 degrees C during the performance of the NCS. Nerve Conduction Studies Anti Sensory Summary Table ?Stim Site NR Onset (ms) Norm Onset (ms) Peak (ms) Norm Peak (ms) O-P Amp (?V) Norm O-P Amp Site1 Site2 Delta-0 (ms) Dist (cm) Niall (m/s) Norm Niall (m/s) Left Median Anti Sensory (2nd Digit) Wrist ? 2.8 3.3 <3.6 18.1 >10 Wrist 2nd Digit 2.8 14.0 50 Right Median Anti Sensory (2nd Digit) Wrist ? 3.8 4.6 <3.6 11.7 >10 Wrist 2nd Digit 3.8 14.0 37 Right Radial Anti Sensory (Thumb) Forearm ? 1.4 2.1 <3.1 1.6 Forearm Thumb 1.4 0.0 Left Ulnar Anti Sensory (5th Digit) Wrist ? 0.8 3.2 <3.7 16.6 >15.0 Wrist 5th Digit 0.8 14.0 175 Right Ulnar Anti Sensory (5th Digit) Wrist ? 2.3 3.4 <3.7 21.4 >15.0 Wrist 5th Digit 2.3 14.0 61 Motor Summary Table ?Stim Site NR Onset (ms) Norm Onset (ms) O-P Amp (mV) Norm O-P Amp iAmp (mV) Amp (1st) (%) Site1 Site2 Delta-0 (ms) Dist (cm) Niall (m/s) Norm Niall (m/s) Left Median Motor (Abd Poll Brev) Wrist ? 3.5 <3.9 7.5 >4.5 8.8 100.0 Elbow Wrist 4.6 23.5 51 >45 Elbow ? 8.1 7.1 8.3 94.7 Right Median Motor (Abd Poll Brev) Wrist ? 4.6 <3.9 5.8 >4.5 7.4 100.0 Elbow Wrist 4.9 24.0 49 >45 Elbow ? 9.5 5.1 6.3 87.9 Left Ulnar Motor (Abd Dig Minimi) Wrist ? 3.0 <3.0 5.9 >5 7.0 100.0 B Elbow Wrist 3.9 21.0 54 >45 B Elbow ? 6.9 5.9 7.1 100.0 A Elbow B Elbow 1.8 10.0 56 >45 A Elbow ? 8.7 5.4 6.6 91.5 Right Ulnar Motor (Abd Dig Minimi) Wrist ? 2.7 <3.0 5.7 >5 6.7 100.0 B Elbow Wrist 4.3 21.0 49 >45 B Elbow ? 7.0 5.5 6.6 96.5 A Elbow B Elbow 1.7 10.0 59 >45 A Elbow ? 8.7 5.2 6.4 91.2 EMG ?Side Muscle Nerve Root Ins Act Fibs Psw Amp Dur Poly Recrt Int Pat Comment Right 1stDorInt Ulnar C8-T1 Nml Nml Nml Nml Nml 0 Nml Complete Right FlexCarRad Median C6-7 Nml Nml Nml Nml Nml 0 Nml Complete Right Biceps Musculocut C5-6 Nml Nml Nml Nml Nml 0 Nml Complete Right Triceps Radial C6-7-8 Nml Nml Nml Nml Nml 0 Nml Complete Right Deltoid Axillary C5-6 Nml Nml Nml Nml Nml 0 Nml Complete Left 1stDorInt Ulnar C8-T1 Nml Nml Nml Nml Nml 0 Nml Complete Left FlexCarRad Median C6-7 Nml Nml Nml Nml Nml 0 Nml Complete Left Biceps Musculocut C5-6 Nml Nml Nml Nml Nml 0 Nml Complete Left Triceps Radial C6-7-8 Nml Nml Nml Nml Nml 0 Nml Complete Left Deltoid Axillary C5-6 Nml Nml Nml Nml Nml 0 Nml Complete FINDINGS: Right median motor nerve showed prolonged distal latency, normal amplitude and normal conduction velocity. Right median sensory nerve showed prolonged peak latency. All other nerves tested were within normal. Concentric needle EMG was performed in selected muscles of the bilateral upper extremities. Study did not reveal signs of electric abnormalities as shown in the table below. IMPRESSION: 1. This is an abnormal study. 2. There is electrodiagnostic evidence for right moderate-severe median neuropathy at the wrist, consistent with carpal tunnel syndrome. 3. There is no electrodiagnostic evidence for ulnar neuropathy, brachial plexopathy, or cervical radiculopathy. 4. There is no electrodiagnostic evidence for left median neuropathy at the wrist. CLINICAL COMMENT: Will refer to Dr. Riggins for consideration of surgery. If symptoms persist on left side, we can repeat testing 6-12 months. Thank you for your kind referral. Meggan Carroll MD, YE Board Certified, [place] Board of Physical [employer] and Rehabilitation (ABPMR) Board Certified, [place] Board of Electrodiagnostic Medicine (ABEM) CODIN [id number] x 2 MTDD
== END 2023-06-14 14:25 | disposition home or self-care (01) ==
LOC: HO.NEURO 14:24
PROVIDERS: PCP Nurse Practitioner Family; Visit Provider Physical Medicine & Rehabilitation
DX: R20.0 Anesthesia of skin (principal); R60.0 Localized edema
CPT/HCPCS: 95886; 95911

== ENCOUNTER → 2023-06-14 14:26 | Outpatient (BNV) | payer OTHER, SELFPAY | PROVIDERS: PCP Nurse Practitioner Family; Visit Provider Physical Medicine & Rehabilitation | DX: G56.11 Other lesions of median nerve, right upper limb (principal); G56.01 Carpal tunnel syndrome, right upper limb; M79.642 Pain in left hand | CPT/HCPCS: 95886; 95911 ==

== ENCOUNTER 2023-06-19 10:40 | Outpatient (AMB) | payer OTHER, SELFPAY ==
--- NOTE | 2023-06-19 10:42 | MHC.OFFVIS ---
Intake Intake Visit Reasons: PO-Rt Knee 04/12/23 Intake Note: Raghav a 68 year old male presents today for a post operative right knee , DOS 04/12/23 Patient reports mild intermittent discomfort in his right knee. He denies any locking or giving way. He denies any fevers or chills. He does not take any medicines for his discomfort. Allergies No Known Allergies Allergy (Verified 06/19/23 10:42) Medication List - Last Reconciled 06/19/23 by Abdirashid Acevedo MD acetaminophen-codeine 300-30 mg 1 tab PO Q12H PRN amlodipine 10 mg PO DAILY 30 days hydrocodone-acetaminophen 5-325 mg 1 tab PO BID PRN hydrocodone-acetaminophen 5-325 mg 1 tab PO Q8H PRN naproxen 500 mg PO BID PRN 14 days PFSH Medical History (Updated 06/14/23 @ 14:47 by Meggan Carroll MD) Carpal tunnel syndrome on both sides No pertinent past medical history Surgical History History of arthroscopic surgery of shoulder Family History Father Stomach cancer Social History Housing: House Alcohol intake: current Comment: Not too bad. I can tell somebodys been in there pt states Patient Tobacco Use Status: Former Tobacco user e-Cigarette/Vaping Use: Never Used service: No Current occupational status: retired Cognitive needs: No Hearing needs: No Vision needs: No Physical Exam Extrem Other: Right knee examination shows that the surgical incisions are well healed, no erythema, minimal discomfort with range of motion, minimal crepitus with range of motion Assessment & Plan Assessment & Plan (1) Tear of medial meniscus of right knee: Code(s): S83.241A - Other tear of medial meniscus, current injury, right knee, initial encounter Qualifiers: Tear current or old: current Plan: Mr. Underwood continues to do very well after undergoing right knee arthroscopic surgery on 04/12/2023. He will continue with his home exercise program. He will follow up with me on an as-needed basis should any questions or concerns arise. Feel free to call me at any time should questions regarding his orthopedic management arise. Coding Level of Care Code Global (41402) Diagnoses Tear of medial meniscus of right knee S83.241A Tear current or old: current
== END 2023-06-19 11:04 | disposition home or self-care (01) ==
PROVIDERS: PCP Nurse Practitioner Family; Visit Provider Orthopaedic Surgery
DX: S83.241A Other tear of medial meniscus, current injury, right knee, initial encounter (principal)
CPT/HCPCS: 99024

== ENCOUNTER → 2023-06-19 10:40 | Outpatient (BNVA) | payer OTHER, SELFPAY | PROVIDERS: PCP Nurse Practitioner Family; Visit Provider Orthopaedic Surgery ==

== ENCOUNTER 2023-07-03 14:00 | Outpatient (RCR) | payer OTHER, SELFPAY ==
--- NOTE | 2023-05-29 15:16 | MHC.PT.EP ---
[facility] [place] Office [place] Office [place] Office [address] [phone] F: [phone] F: [phone] F: [phone] F: [phone] Physical Therapy Plan of Care Date of Evaluation: 05/29/23 Date of Surgery: 04/12/23 Diagnosis: PARTIAL MEDIAL MENISCECTOMY, PARTIAL LATERAL MENISCECCTOMY R KNEE Assessment: Pt IS 68 YO M REFERRED TO PT FROM [facility]TH[facility] ([facility]) S/P R KNEE MEDIAL AND LAT MENSICECTOMY WITH CHONDROPLASTY OF UNDER SURFACE OF PATELLA AND MEDIAL FEMORAL CONDYLE ON 04/12/23 AFTER AN INJURY ABOUT 2 MONTHS PRIOR. PRESENTS AT THIS TIME (ALMOST 7 WEEKS PO) WITH LIMITED KNEE FLEXION, PAIN, LIMITED LE STRENGTH. SHOULD BENEFIT FROM PT TO ADDRESS THESE ISSUES Frequency and Duration: The patient will be seen 2X/WK X 2-3 WKS THEN 1X/WK X 2-3 WKS Short Term Goals: 1. INCREASED AWARENESS KNEE CARE 2. I KT IF INDICATED Detention Goals: 1. I HEP WITH DC EX PLAN 2. R KNEE ROM 0-125 3. IMPROVED LEFI 4. DECREASED R KNEE PAIN AT LEAST 50% WITH ADLS Treatment Plan: Modalities to reduce pain, spasms and effusion. Manual therapy to restore motion and function. Therapeutic exercise to improve strength and flexibility. Neuromuscular re-education for posture and balance. Therapeutic activities to return to functional activities of daily living. Electronically signed by: DAVID MYRICK PT Please sign and return to therapist. Thank you for your referral.
--- NOTE | 2023-07-03 14:51 | MHC.PT.DC ---
[facility] [place] Office [place] Office [place] Office [address] Debbie Lloyd [address] [phone] F: [phone] F: [phone] F: [phone] F: [phone] Physical Therapy Discharge Report Diagnosis: PARTIAL MEDIAL MENISCECTOMY, PARTIAL LATERAL MENISCECCTOMY R KNEE Date of Surgery: 04/12/23 Date of Evaluation: 05/29/23 Date of Discharge: 07/03/23 Treatments to Date: 6 Cancellations to Date: No Shows to Date: Discharge Status: Achieved Goals Improved Function Independent with HEP Recommend MD Follow-up Discharge Summary: NEEDS SOME CUES FOR BREATHING TECHNIQUE WITH EXS, GOOD FORM WITH MIN CUES Electronically signed by: DAVID MYRICK PT Please sign and return to therapist. Thank you for your referral.
== END 2023-07-03 14:52 | disposition home or self-care (01) ==
LOC: HO.PTWFD 14:00
PROVIDERS: PCP Family Medicine; Visit Provider Physician Assistant
DX: S83.241D Other tear of medial meniscus, current injury, right knee, subsequent encounter (principal); Z98.890 Other specified postprocedural states
CPT/HCPCS: 97110; 97140; 97161; 97535

== ENCOUNTER 2023-07-22 15:50 | Outpatient (AMB) | payer OTHER, SELFPAY ==
--- NOTE | 2023-07-22 15:55 | MHC.PC.OV ---
Vital Signs 07/22/23 15:57 Height 5 ft 8 in Weight 175 lb BMI 26.6 BP 156/80 H Blood Pressure Location Rt brachial Position Sitting Respiration 13 Pulse 71 Pulse Source Pulse Oximeter Temp 97.5 F Temp Source Temporal Artery Scan Pulse Oximetry (%) 98 Oxygen Delivery Method Room Air Intake Visit Reasons: f/u HTN Intake Note: Patient needs refill on Amlodipine. Motor Rebuilder Required: No Accompanied by: Self / Same As Patient Allergies No Known Allergies Allergy (Verified 07/22/23 16:16) Medication List - Last Reconciled 07/22/23 by Kathy Davenport CNP acetaminophen-codeine 300-30 mg 1 tab PO Q12H PRN amlodipine 10 mg PO DAILY 30 days hydrocodone-acetaminophen 5-325 mg 1 tab PO BID PRN hydrocodone-acetaminophen 5-325 mg 1 tab PO Q8H PRN naproxen 500 mg PO BID PRN 14 days Tobacco use date assessed: 01/07/23 Fall risk assessment: No Falls in past year Last assessed Fall Risk: 07/22/23 Dental Screening Dental Screen Date: 07/22/23 Did you have a dental visit in the last 12 months?: Yes Did you have a dental problem in the last 6 months where you did not have access to dental care?: No Was dental information given to patient?: Patient has dentist HPI HPI Comments History of Present Illness Details 68-year-old male presents for hypertension follow-up He admits to taking his medications as prescribed without adverse reactions He reports history of intermittent right-sided nosebleed for about a year and a half. Last episode of nosebleed was 7-10 days ago. No associated headaches, visual disturbances, dizziness/lightheadedness. No current nosebleed He offers no complaints and denies acute symptoms at this time [facility] Medical History Carpal tunnel syndrome on both sides No pertinent past medical history Surgical History History of arthroscopic surgery of shoulder Family History Father Stomach cancer Social History Housing: House Alcohol intake: current Comment: Not too bad. I can tell somebodys been in there pt states Patient Tobacco Use Status: Former Tobacco user Cigarette Packs Per Day: 0.5 Cigarettes Per Day: 10 Years Smoked: 20 e-Cigarette/Vaping Use: Never Used service: No Current occupational status: retired Cognitive needs: No Hearing needs: No Vision needs: No Review of Systems Const Details: Const Denies chills, Denies fatigue, Denies fever(s), Denies headache(s) and Denies weakness ENT Denies dizziness and Denies headache(s) Card Denies chest pain, Denies lightheadedness, Denies dyspnea and Denies other (Palpitations) Resp Denies cough, Denies dyspnea, Denies wheezing and Denies other ( shortness of breath) GI Denies abdominal pain, Denies melena, Denies hematochezia, Denies change in bowel habits, Denies dyspepsia and Denies nausea Denies hematuria and Denies dysuria Musc Denies abnormal gait, Denies myalgias, Denies arthralgias, Denies numbness and Denies tingling Skin/Breast Denies rash, Denies unusual bruising and Denies wounds Neuro Denies abnormal gait, Denies dizziness, Denies headache(s), Denies memory loss, Denies numbness, Denies Sensory deficit (Neuro), Denies tingling and Denies weakness Psych Denies anxiety, Denies depression, Denies memory loss Endo Denies cold intolerance, Denies fatigue, Denies heat intolerance, Denies polydipsia and Denies polyuria Aller/Immun Denies wheezing Physical exam (Primary Care) Vital Signs: Last Vital Signs Temp 97.5 F 07/22/23 15:57 Pulse 71 07/22/23 15:57 Resp 13 07/22/23 15:57 BP 156/80 H 07/22/23 15:57 Pulse Ox 98 07/22/23 15:57 Oxygen Delivery Method Room Air 07/22/23 15:57 BMI result Body Mass Index 26.6 Tobacco/Smoking Status: Tobacco use Status Tobacco use date assessed 01/07/23 07/22/23 16:03 Patient Tobacco Use Status Former Tobacco user 07/22/23 16:03 e-Cigarette/Vaping Use Never Used 07/22/23 16:03 Const Other: General: no acute distress and well developed Nutritional Appearance: well nourished Orientation/consciousness: patient oriented x3 [facility] Head: Yes normocephalic and Yes atraumatic Eyes General: appearance normal, both eyes and all related structures Pupils: Equal, round and reactive pupils present EOM: EOMs intact bilaterally Resp Effort & Inspection: normal respiratory effort Auscultation: clear to auscultation bilaterally Cardio Rate: regular rate Rhythm: regular rhythm Heart sounds: S1 normal heart sound present, S2 normal heart sound present, no gallops, no murmurs and no rubs GI Palpation (GI): No Abdominal aortic bruit present, Soft to palpation, nontender, No hepatosplenomegaly present and No Rebound tenderness present Auscultation: normal bowel sounds General: Yes no CVA tenderness Back/Spine/Pelvis Back: no CVA tenderness Cervical Spine: cervical ROM normal and No Cervical spine tenderness Thoracic/Lumbar Spine: thoraco-lumbar ROM normal, No pain with thoraco-lumbar ROM, No thoracic spinal tenderness and No lumbar spinal tenderness Extrem General: Yes normal to inspection, No edema and No calf tenderness Skin General: warm and dry. Normal skin color. Normal skin turgor Neuro General: patient oriented x3, gait normal and no focal neuro deficit Cranial nerves: Yes Equal, round and reactive pupils present Cognition (Neuro): normal cognition Gait exam (Neuro): Normal gait present Sensory Exam: No Sensory deficit (Neuro) Psych Appearance: grossly normal Affect: normal affect Attitude: cooperative Thought process: Normal thought process present Assessment and Plan Assessment & Plan (1) Hypertension: Code(s): I10 - Essential (primary) hypertension Qualifiers: Hypertension type: primary hypertension Qualified Code(s): I10 - Essential (primary) hypertension Plan: Resting blood pressure is 156/80, above goal of less than 140/90 Lisinopril ordered. Take as prescribed Continue to take amlodipine as prescribed Low-sodium diet encouraged Follow-up for nurse visit for blood pressure check in 1 week Follow-up with PCP in 2 weeks or return sooner with symptoms or concerns Verbalized understanding and agreed with treatment plan (2) Right-sided epistaxis: Code(s): R04.0 - Epistaxis Plan: History of right-sided epistaxis for about a year and half. Last episode was 7-10 days ago. No associated headaches, visual disturbances, dizziness/lightheadedness Take antihypertensives as prescribed Referred to ENT Follow-up with new or worsening signs and symptoms Verbalized understanding and agreed with treatment plan Orders: Referrals Ear/Nose/Throat Referral R04.0 - Epistaxis Medications: New lisinopril 10 mg PO DAILY 30 days 30 tabs 3RF Coding Level of Care Code Est Pt Level 4 (88095) Diagnoses Primary hypertension I10 Hypertension type: primary hypertension Right-sided epistaxis R04.0
[2023-07-22 15:57] VITALS: BP 156/80; PULSE 71; RESP 13; TEMP 36.4; O2SAT 98; BMI 26.6
== END 2023-07-22 16:35 | disposition home or self-care (01) ==
PROVIDERS: PCP Nurse Practitioner Family; Visit Provider Nurse Practitioner Family
DX: I10 Essential (primary) hypertension (principal); R04.0 Epistaxis
CPT/HCPCS: 99214

== ENCOUNTER 2023-07-24 12:39 | Outpatient (AMB) | payer OTHER, SELFPAY ==
--- NOTE | 2023-07-24 12:58 | MHC.OFFVIS ---
Intake Intake Visit Reasons: O/V bilateral CTS /EMG done Intake Note: Raghav 68 yr old male presents today for follow up visit for her EMG review of bilateral hands and to discuss surgical intervention. Patient reports recent knee surgery which required him to use crutches and cane that he feels increases his pain, numbness and tinglibng. States his rt middle finger and left pointer finger cause him the most pain. He is unable to make a full fist. Allergies No Known Allergies Allergy (Verified 07/24/23 14:02) HPI O/V bilateral CTS /EMG done HPI Details Raghav is a 68 year old right hand dominant man who presents for a NCS review of his bilateral hand numbness. He complains of numbness in the median nerve distribution bilaterally, R>L. He says his right middle finger and left index finger feel numb all the time. His other symptoms are intermittent, but daily, and worse at night. He says he is also unable to make a full fist at times, bilaterally. He found his symptoms began and worsened after his knee surgery as he had to walk using crutches & a cane. He says he was gripping these devices very hard and it made his pain and numbness worse. 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 [facility] Medical History Carpal tunnel syndrome on both sides No pertinent past medical history Surgical History History of arthroscopic surgery of shoulder Family History Father Stomach cancer Social History Housing: House Alcohol intake: current Comment: Not too bad. I can tell somebodys been in there pt states Patient Tobacco Use Status: Former Tobacco user Cigarette Packs Per Day: 0.5 Cigarettes Per Day: 10 Years Smoked: 20 e-Cigarette/Vaping Use: Never Used service: No Current occupational status: retired Cognitive needs: No Hearing needs: No Vision needs: No Review of Systems Const All systems reviewed & are unremarkable except as noted in HPI and below Physical Exam Const General: cooperative, healthy appearing and no acute distress Orientation/consciousness: patient oriented x3 HEENT Head: Yes normocephalic and Yes atraumatic Eyes EOM: EOMs intact bilaterally Resp Effort & Inspection: normal respiratory effort and able to speak in complete sentences Cardio Jugular venous distension: no JVD Skin General skin exam: turgor normal Rashes: no rashes Neuro General: patient oriented x3 Extrem Other: Evaluation of Bilateral Upper Extremity: The patient is alert, oriented, and in no acute distress Neuro: Dense numbness in the right middle & left index fingers today in clinic. Normal sensation to all other digits today in clinic. Some thenar wasting on the right. No intrinsic wasting Good APB muscle belly firing and good finger cross Vascular: Cap refill brisk ROM: Skin: No lacerations or abrasions. General: No Ecchymosis. No Erythema or evidence of infection. Radiographs: 3 views of the bilateral hands from 05/10/23 were reviewed by me today in clinic. In regards to the left hand he has some basal joint arthritis with joint space narrowing, osteophyte formation and subluxation. In regards to the right hand he has some basal joint arthritis with joint space narrowing, osteophyte formation and subluxation. He also has some middle finger DIP joint arthritis, with a fairly prominent dorsal osteophyte Nerve Conduction Study: IMPRESSION: 1. This is an abnormal study. 2. There is electrodiagnostic evidence for right moderate-severe median neuropathy at the wrist, consistent with carpal tunnel syndrome. 3. There is no electrodiagnostic evidence for ulnar neuropathy, brachial plexopathy, or cervical radiculopathy. 4. There is no electrodiagnostic evidence for left median neuropathy at the wrist. CLINICAL COMMENT: If symptoms persist on left side, we can repeat testing 6-12 months. Meggan Carroll MD, YE 06/14/23 Psych Appearance: grossly normal Affect: normal affect Attitude: cooperative Assessment & Plan Assessment & Plan (1) Carpal tunnel syndrome of right wrist: Code(s): G56.01 - Carpal tunnel syndrome, right upper limb (2) Numbness of left hand: Code(s): R20.0 - Anesthesia of skin (3) Stiffness of hand joint: Code(s): M25.649 - Stiffness of unspecified hand, not elsewhere classified Plan Assessment & Plan: 1. Right carpal tunnel syndrome, moderate-severe Symptoms intermittent, but daily, worse at night With dense numbness in the middle finger I educated him about this condition I discussed operative and non-operative treatment options The patient would like to proceed with surgery The risks and benefits of operative treatment were discussed with the patient and the patient wishes to proceed with surgery. These risks include, but are not limited to risk of damage to blood vessels, nerves, tendons, infection, recurrence, incomplete relief of preoperative symptoms, persistent pain, possible need for further surgery and the risks associated with regional blocks and anesthesia. The plan is to take the patient to the operating room sometime in the next few weeks for the following procedures: 1. Right carpal tunnel release, under local All of the preoperative paperwork including the consent was reviewed today. All the patient's questions were answered. The patient understands that they will be contacted by our golf caddy soon to schedule this procedure He denies Diabetes, blood thinners, asthma, heart, lung, kidney issues 2. Left hand numbness In the median nerve distribution, with dense numbness in the index finger Symptoms intermittent and occasional No findings on NCS Can reassess in 6 months with new study 3. Bilateral hand stiffness, generalized I demonstrated ROM exercises he can perform at home an I encouraged him to work on his ROM Scribed for Lisha Riggins MD by Gareth Estrada, biomedical instrument technician, on 07/24/23 at 1:55 PM, EST. Coding Level of Care Code Est Pt Level 4 (24703) Diagnoses Carpal tunnel syndrome of right wrist G56.01 Numbness of left hand R20.0 Stiffness of hand joint M25.649
== END 2023-07-24 14:13 | disposition home or self-care (01) ==
PROVIDERS: PCP Nurse Practitioner Family; Visit Provider Orthopaedic Surgery
DX: G56.01 Carpal tunnel syndrome, right upper limb (principal)
CPT/HCPCS: 99214

== ENCOUNTER → 2023-07-24 12:39 | Outpatient (BNVA) | payer OTHER, SELFPAY | PROVIDERS: PCP Nurse Practitioner Family; Visit Provider Orthopaedic Surgery ==

== ENCOUNTER 2023-08-05 16:16 | Outpatient (AMB) | payer OTHER, SELFPAY ==
--- NOTE | 2023-08-05 16:20 | A.OFFPC_ITS ---
Vital Signs 08/05/23 16:21 Height 5 ft 8 in Weight 179 lb BMI 27.2 BP 176/70 H Blood Pressure Location Rt brachial Position Sitting Respiration 13 Pulse 86 Pulse Source Pulse Oximeter Temp 97 F Temp Source Temporal Artery Scan Pulse Oximetry (%) 97 Oxygen Delivery Method Room Air Intake Visit Reasons: bp check Intake Note: Patient states he stopped taking blood pressure meds due to him believing that it was causing bloody noses. Computer Aide Required: No Accompanied by: Self / Same As Patient Allergies No Known Allergies Allergy (Verified 08/05/23 16:30) Medication List - Last Reconciled 08/05/23 by Kathy Davenport CNP acetaminophen-codeine 300-30 mg 1 tab PO Q12H PRN amlodipine 10 mg PO DAILY 30 days lisinopril 10 mg PO DAILY 30 days naproxen 500 mg PO BID PRN 14 days Tobacco use date assessed: 08/05/23 Fall risk assessment: No Falls in past year Last assessed Fall Risk: 08/05/23 Dental Screening Dental Screen Date: 08/05/23 Did you have a dental visit in the last 12 months?: Yes Did you have a dental problem in the last 6 months where you did not have access to dental care?: No Was dental information given to patient?: Patient has dentist HPI HPI Comments History of Present Illness Details 68-year-old male presents for hypertensi on follow-up He notes he stopped taking his antihypertensive medications because he thinks they are causing his nosebleeds. He notes that he has not taken amlodipine and lisinopril for about 10 days and has not experienced nosebleeds He was referred to ENT for nosebleeds. He notes he has an appointment at the end of August He offers no complaints and denies acute symptoms at this time [facility] Medical History Carpal tunnel syndrome on both sides No pertinent past medical history Surgical History History of arthroscopic surgery of shoulder Family History Father Stomach cancer Social History Housing: House Alcohol intake: current Comment: Not too bad. I can tell somebodys been in there pt states Patient Tobacco Use Status: Former Tobacco user Cigarette Packs Per Day: 0.5 Cigarettes Per Day: 10 Years Smoked: 20 e-Cigarette/Vaping Use: Never Used service: No Current occupational status: retired Cognitive needs: No Hearing needs: No Vision needs: No Review of Systems Const Details: Const Denies chills, Denies fatigue, Denies fever(s), Denies headache(s) and Denies weakness ENT Denies dizziness and Denies headache(s) Card Denies chest pain, Denies lightheadedness, Denies dyspnea and Denies other (Palpitations) Resp Denies cough, Denies dyspnea, Denies wheezing and Denies other ( shortness of breath) GI Denies abdominal pain, Denies melena, Denies hematochezia, Denies change in bowel habits, Denies dyspepsia and Denies nausea Denies hematuria and Denies dysuria Musc Denies abnormal gait, Denies myalgias, Denies arthralgias, Denies numbness and Denies tingling Skin/Breast Denies rash, Denies unusual bruising and Denies wounds Neuro Denies abnormal gait, Denies dizziness, Denies headache(s), Denies memory loss, Denies numbness, Denies Sensory deficit (Neuro), Denies tingling and Denies weakness Psych Denies anxiety, Denies depression, Denies memory loss Endo Denies cold intolerance, Denies fatigue, Denies heat intolerance, Denies polydipsia and Denies polyuria Aller/Immun Denies wheezing Physical exam (Primary Care) Vital Signs: Last Vital Signs Temp 97 F 08/05/23 16:21 Pulse 86 08/05/23 16:21 Resp 13 08/05/23 16:21 BP 176/70 H 08/05/23 16:21 Pulse Ox 97 08/05/23 16:21 Oxygen Delivery Method Room Air 08/05/23 16:21 BMI result Body Mass Index 27.2 Tobacco/Smoking Status: Tobacco use Status Tobacco use date assessed 08/05/23 08/05/23 16:29 Patient Tobacco Use Status Former Tobacco user 08/05/23 16:29 e-Cigarette/Vaping Use Never Used 08/05/23 16:29 Const Other: General: no acute distress and well developed Nutritional Appearance: well nourished Orientation/consciousness: patient oriented x3 [facility] Head: Yes normocephalic and Yes atraumatic Eyes General: appearance normal, both eyes and all related structures Pupils: Equal, round and reactive pupils present EOM: EOMs intact bilaterally Resp Effort & Inspection: normal respiratory effort Auscultation: clear to auscultation bilaterally Cardio Rate: regular rate Rhythm: regular rhythm Heart sounds: S1 normal heart sound present, S2 normal heart sound present, no gallops, no murmurs and no rubs GI Palpation (GI): No Abdominal aortic bruit present, Soft to palpation, nontender, No hepatosplenomegaly present and No Rebound tenderness present Auscultation: normal bowel sounds General: Yes no CVA tenderness Back/Spine/Pelvis Back: no CVA tenderness Cervical Spine: cervical ROM normal and No Cervical spine tenderness Thoracic/Lumbar Spine: thoraco-lumbar ROM normal, No pain with thoraco-lumbar ROM, No thoracic spinal tenderness and No lumbar spinal tenderness Extrem General: Yes normal to inspection, No edema and No calf tenderness Skin General: warm and dry. Normal skin color. Normal skin turgor Neuro General: patient oriented x3, gait normal and no focal neuro deficit Cranial nerves: Yes Equal, round and reactive pupils present Cognition (Neuro): normal cognition Gait exam (Neuro): Normal gait present Sensory Exam: No Sensory deficit (Neuro) Psych Appearance: grossly normal Affect: normal affect Attitude: cooperative Thought process: Normal thought process present Assessment and Plan Assessment & Plan (1) Hypertension: Code(s): I10 - Essential (primary) hypertension Qualifiers: Hypertension type: primary hypertension Qualified Code(s): I10 - Essential (primary) hypertension Plan: Resting blood pressure is 176/70, above goal of less than 140/90 He has not taken his antihypertensives for the past 10 days because he believes they are the source of his nosebleeds. He has not had nosebleeds since he stopped taking the medications Instructed of the risks, such as stroke, of not taking his medications with significantly elevated blood pressure and encouraged to take his medications as prescribed Advised to utilize printout for nosebleeds that was handed home by his PCP at his last visit, go to the ED with persistent or severe nosebleeds, and follow-up with ENT as planned He notes he will start taking his antihypertensives as prescribed beginning tomorrow Low-sodium diet encouraged Advised to follow-up in 1 week or return sooner with symptoms or concerns Verbalized understanding and agreed with treatment plan Coding Level of Care Code Est Pt Level 4 (73750) Diagnoses Primary hypertension I10 Hypertension type: primary hypertension
[2023-08-05 16:21] VITALS: BP 176/70; PULSE 86; RESP 13; TEMP 36.1; O2SAT 97; BMI 27.2
== END 2023-08-05 16:48 | disposition home or self-care (01) ==
PROVIDERS: PCP Nurse Practitioner Family; Visit Provider Nurse Practitioner Family
DX: I10 Essential (primary) hypertension (principal)
CPT/HCPCS: 99214

== ENCOUNTER 2023-08-27 13:00 | Outpatient (AMB) | payer OTHER, SELFPAY ==
[2023-08-27 13:05] VITALS: BP 136/60; PULSE 78; RESP 14; TEMP 36.4; O2SAT 98; BMI 27.1
--- NOTE | 2023-08-27 13:05 | A.OFFPC_ITS ---
Vital Signs 08/27/23 13:05 08/27/23 13:19 Height 5 ft 8 in Weight 178 lb BMI 27.1 BP 136/60 110/50 L Blood Pressure Location Rt brachial Rt brachial Position Sitting Sitting Respiration 14 Pulse 78 Pulse Source Pulse Oximeter Temp 97.5 F Temp Source Temporal Artery Scan Pulse Oximetry (%) 98 Oxygen Delivery Method Room Air Intake Visit Reasons: bp check Intake Note: Patient needs refill, on amlodipine. Occupational Therapist Required: No Accompanied by: Self / Same As Patient Allergies No Known Allergies Allergy (Verified 08/27/23 13:15) Medication List - Last Reconciled 08/27/23 by Kathy Davenport CNP acetaminophen-codeine 300-30 mg 1 tab PO Q12H PRN amlodipine 10 mg PO DAILY 30 days lisinopril 10 mg PO DAILY 30 days naproxen 500 mg PO BID PRN 14 days Tobacco use date assessed: 08/05/23 Fall risk assessment: No Falls in past year Last assessed Fall Risk: 08/27/23 Dental Screening Dental Screen Date: 08/27/23 Did you have a dental visit in the last 12 months?: Yes Did you have a dental problem in the last 6 months where you did not have access to dental care?: No Was dental information given to patient?: Patient has dentist HPI HPI Comments History of Present Illness Details 68-year-old male presents for hypertensi on follow-up He admits to taking his medications as prescribed without adverse reactions Denies dizziness or lightheadedness He offers no complaints and denies acute symptoms at this time [facility] Medical History Carpal tunnel syndrome on both sides No pertinent past medical history Surgical History History of arthroscopic surgery of shoulder Family History Father Stomach cancer Social History Housing: House Alcohol intake: current Comment: Not too bad. I can tell somebodys been in there pt states Patient Tobacco Use Status: Former Tobacco user Cigarette Packs Per Day: 0.5 Cigarettes Per Day: 10 Years Smoked: 20 e-Cigarette/Vaping Use: Never Used service: No Current occupational status: retired Cognitive needs: No Hearing needs: No Vision needs: No Review of Systems Const Details: Const Denies chills, Denies fatigue, Denies fever(s), Denies headache(s) and Denies weakness ENT Denies dizziness and Denies headache(s) Card Denies chest pain, Denies lightheadedness, Denies dyspnea and Denies other (Palpitations) Resp Denies cough, Denies dyspnea, Denies wheezing and Denies other ( shortness of breath) GI Denies abdominal pain, Denies melena, Denies hematochezia, Denies change in bowel habits, Denies dyspepsia and Denies nausea Denies hematuria and Denies dysuria Musc Denies abnormal gait, Denies myalgias, Denies arthralgias, Denies numbness and Denies tingling Skin/Breast Denies rash, Denies unusual bruising and Denies wounds Neuro Denies abnormal gait, Denies dizziness, Denies headache(s), Denies memory loss, Denies numbness, Denies Sensory deficit (Neuro), Denies tingling and Denies weakness Psych Denies anxiety, Denies depression, Denies memory loss Endo Denies cold intolerance, Denies fatigue, Denies heat intolerance, Denies polydipsia and Denies polyuria Aller/Immun Denies wheezing Physical exam (Primary Care) Vital Signs: Last Vital Signs Temp 97.5 F 08/27/23 13:05 Pulse 78 08/27/23 13:05 Resp 14 08/27/23 13:05 BP 136/60 08/27/23 13:05 Pulse Ox 98 08/27/23 13:05 Oxygen Delivery Method Room Air 08/27/23 13:05 BMI result Body Mass Index 27.1 Tobacco/Smoking Status: Tobacco use Status Tobacco use date assessed 08/05/23 08/27/23 13:12 Patient Tobacco Use Status Former Tobacco user 08/27/23 13:12 e-Cigarette/Vaping Use Never Used 08/27/23 13:12 Const Other: General: no acute distress and well developed Nutritional Appearance: well nourished Orientation/consciousness: patient oriented x3 HENMT Head: Yes normocephalic and Yes atraumatic Eyes General: appearance normal, both eyes and all related structures Pupils: Equal, round and reactive pupils present EOM: EOMs intact bilaterally Resp Effort & Inspection: normal respiratory effort Auscultation: clear to auscultation bilaterally Cardio Rate: regular rate Rhythm: regular rhythm Heart sounds: S1 normal heart sound present, S2 normal heart sound present, no gallops, no murmurs and no rubs GI Palpation (GI): No Abdominal aortic bruit present, Soft to palpation, nontender, No hepatosplenomegaly present and No Rebound tenderness present Auscultation: normal bowel sounds General: Yes no CVA tenderness Back/Spine/Pelvis Back: no CVA tenderness Cervical Spine: cervical ROM normal and No Cervical spine tenderness Thoracic/Lumbar Spine: thoraco-lumbar ROM normal, No pain with thoraco-lumbar ROM, No thoracic spinal tenderness and No lumbar spinal tenderness Extrem General: Yes normal to inspection, No edema and No calf tenderness Skin General: warm and dry. Normal skin color. Normal skin turgor Neuro General: patient oriented x3, gait normal and no focal neuro deficit Cranial nerves: Yes Equal, round and reactive pupils present Cognition (Neuro): normal cognition Gait exam (Neuro): Normal gait present Sensory Exam: No Sensory deficit (Neuro) Psych Appearance: grossly normal Affect: normal affect Attitude: cooperative Thought process: Normal thought process present Assessment and Plan Assessment & Plan (1) Hypertension: Code(s): I10 - Essential (primary) hypertension Qualifiers: Hypertension type: primary hypertension Qualified Code(s): I10 - Essential (primary) hypertension Medications: New amlodipine 5 mg PO DAILY 30 days 30 tabs 2RF Discontinued amlodipine Discontinued Reason: Doctor's Order 10 mg PO DAILY 30 days 30 tabs 3RF Patient Instructions: Resting blood pressure is 110/50, within goal of less than 140/90. Systolic BP his below goal of less than 60 Will decrease amlodipine to 5 mg daily. Take as prescribed Continue to take lisinopril 10 mg daily Low-sodium diet and routine exercise encouraged Follow up in 1 month or return sooner with worsening or new symptoms such as lightheadedness or dizziness Verbalized understanding and agreed with treatment plan Coding Level of Care Code Est Pt Level 3 (28815) Diagnoses Primary hypertension I10 Hypertension type: primary hypertension
[2023-08-27 13:19] VITALS: BP 110/50
== END 2023-08-27 13:28 | disposition home or self-care (01) ==
PROVIDERS: PCP Nurse Practitioner Family; Visit Provider Nurse Practitioner Family
DX: I10 Essential (primary) hypertension (principal)
CPT/HCPCS: 99213

== ENCOUNTER 2023-09-24 17:04 | Outpatient (AMB) | payer OTHER, SELFPAY ==
[2023-09-24 17:08] VITALS: BP 160/70; PULSE 93; RESP 13; TEMP 36.4; O2SAT 99; BMI 26.5
--- NOTE | 2023-09-24 17:08 | A.OFFPC_ITS ---
Vital Signs 09/24/23 17:08 09/24/23 17:27 Height 5 ft 8 in Weight 174 lb 4 oz BMI 26.5 BP 160/70 H 140/60 H Blood Pressure Location Rt brachial Rt brachial Position Sitting Sitting Respiration 13 Pulse 93 Pulse Source Pulse Oximeter Temp 97.6 F Temp Source Temporal Artery Scan Pulse Oximetry (%) 99 Oxygen Delivery Method Room Air Intake Visit Reasons: bp check Animal Laboratory Technician Required: No Accompanied by: Self / Same As Patient Allergies No Known Allergies Allergy (Verified 09/24/23 17:24) Medication List - Last Reconciled 09/24/23 by Kathy Davenport CNP acetaminophen-codeine 300-30 mg 1 tab PO Q12H PRN amlodipine 5 mg PO DAILY 30 days lisinopril 10 mg PO DAILY 30 days naproxen 500 mg PO BID PRN 14 days Tobacco use date assessed: 08/05/23 Fall risk assessment: No Falls in past year Last assessed Fall Risk: 09/24/23 Dental Screening Dental Screen Date: 09/24/23 Did you have a dental visit in the last 12 months?: Yes Did you have a dental problem in the last 6 months where you did not have access to dental care?: No Was dental information given to patient?: Patient has dentist HPI HPI Comments History of Present Illness Details 68-year-old male presents for hypertensi on follow-up He notes that he just realized today, after he learned that his initial blood pressure reading was elevated, that he was taking 1/2 her 5 mg of amlodipine instead of 1/2 of 10 mg to equal the prescribed 5 mg daily. He has been taking lisinopril 10 mg daily Denies dizziness or lightheadedness He offers no complaints and denies acute symptoms at this time [facility] Medical History Carpal tunnel syndrome on both sides No pertinent past medical history Surgical History History of arthroscopic surgery of shoulder Family History Father Stomach cancer Social History Housing: House Alcohol intake: current Comment: Not too bad. I can tell somebodys been in there pt states Patient Tobacco Use Status: Former Tobacco user Cigarette Packs Per Day: 0.5 Cigarettes Per Day: 10 Years Smoked: 20 e-Cigarette/Vaping Use: Never Used service: No Current occupational status: retired Cognitive needs: No Hearing needs: No Vision needs: No Review of Systems Const Details: Const Denies chills, Denies fatigue, Denies fever(s), Denies headache(s) and Denies weakness ENT Denies dizziness and Denies headache(s) Card Denies chest pain, Denies lightheadedness, Denies dyspnea and Denies other (Palpitations) Resp Denies cough, Denies dyspnea, Denies wheezing and Denies other ( shortness of b reath) GI Denies abdominal pain, Denies melena, Denies hematochezia, Denies change in bowel habits, Denies dyspepsia and Denies nausea Denies hematuria and Denies dysuria Musc Denies abnormal gait, Denies myalgias, Denies arthralgias, Denies numbness and Denies tingling Skin/Breast Denies rash, Denies unusual bruising and Denies wounds Neuro Denies abnormal gait, Denies dizziness, Denies headache(s), Denies memory loss, Denies numbness, Denies Sensory deficit (Neuro), Denies tingling and Denies weakness Psych Denies anxiety, Denies depression, Denies memory loss Endo Denies cold intolerance, Denies fatigue, Denies heat intolerance, Denies polydipsia and Denies polyuria Aller/Immun Denies wheezing Physical exam (Primary Care) Vital Signs: Last Vital Signs Temp 97.6 F 09/24/23 17:08 Pulse 93 09/24/23 17:08 Resp 13 09/24/23 17:08 BP 160/70 H 09/24/23 17:08 Pulse Ox 99 09/24/23 17:08 Oxygen Delivery Method Room Air 09/24/23 17:08 BMI result Body Mass Index 26.5 Tobacco/Smoking Status: Tobacco use Status Tobacco use date assessed 08/05/23 09/24/23 17:16 Patient Tobacco Use Status Former Tobacco user 09/24/23 17:16 e-Cigarette/Vaping Use Never Used 09/24/23 17:16 Const Other: General: no acute distress and well developed Nutritional Appearance: well nourished Orientation/consciousness: patient oriented x3 [facility] Head: Yes normocephalic and Yes atraumatic Eyes General: appearance normal, both eyes and all related structures Pupils: Equal, round and reactive pupils present EOM: EOMs intact bilaterally Resp Effort & Inspection: normal respiratory effort Auscultation: clear to auscultation bilaterally Cardio Rate: regular rate Rhythm: regular rhythm Heart sounds: S1 normal heart sound present, S2 normal heart sound present, no gallops, no murmurs and no rubs GI Palpation (GI): No Abdominal aortic bruit present, Soft to palpation, nontender, No hepatosplenomegaly present and No Rebound tenderness present Auscultation: normal bowel sounds General: Yes no CVA tenderness Back/Spine/Pelvis Back: no CVA tenderness Cervical Spine: cervical ROM normal and No Cervical spine tenderness Thoracic/Lumbar Spine: thoraco-lumbar ROM normal, No pain with thoraco-lumbar ROM, No thoracic spinal tenderness and No lumbar spinal tenderness Extrem General: Yes normal to inspection, No edema and No calf tenderness Skin General: warm and dry. Normal skin color. Normal skin turgor Neuro General: patient oriented x3, gait normal and no focal neuro deficit Cranial nerves: Yes Equal, round and reactive pupils present Cognition (Neuro): normal cognition Gait exam (Neuro): Normal gait present Sensory Exam: No Sensory deficit (Neuro) Psych Appearance: grossly normal Affect: normal affect Attitude: cooperative Thought process: Normal thought process present Assessment and Plan Assessment & Plan (1) Hypertension: Code(s): I10 - Essential (primary) hypertension Qualifiers: Hypertension type: primary hypertension Qualified Code(s): I10 - Essential (primary) hypertension Plan: Resting blood pressure is 140/60, slightly above goal of less than 140/90 Advised to take lisinopril 10 mg daily and amlodipine 5 mg daily as prescribed Low-sodium diet encouraged Follow-up in 1 month or return sooner with worsening or new symptoms Verbalized understanding and agreed with treatment plan Coding Level of Care Code Est Pt Level 3 (69256) Diagnoses Primary hypertension I10 Hypertension type: primary hypertension
[2023-09-24 17:27] VITALS: BP 140/60
== END 2023-09-24 17:55 | disposition home or self-care (01) ==
PROVIDERS: PCP Nurse Practitioner Family; Visit Provider Nurse Practitioner Family
DX: I10 Essential (primary) hypertension (principal)
CPT/HCPCS: 99213

== ENCOUNTER 2023-09-30 10:15 | Day surgery (SDC) | payer MEDICARE, SELFPAY ==
[2023-09-30 11:30] VITALS: BP 168/75; PULSE 66; RESP 16; TEMP 36.4; O2SAT 100; BMI 27.7
--- NOTE | 2023-09-30 12:35 | MHC.SHP ---
Pre-Procedural Eval Section A - 24 Hr Update-Section A only Date of Service: 09/30/23 The patient is an INPATIENT: No Changes since office visit: No Cold of Flu in the past 2 weeks, No New Medical Problems, No Changes in Medication and No Patient answered all questions The patient has been examined within 24 hours of the surgical procedure. The History & Physical has been completed within 30 days and I have reviewed it.: Yes Section B - Complete if H&P > 30 days Chief Complaint: Carpal tunnel syndrome, right upper limb Allergies: Allergies Allergy/AdvReac Type Severity Reaction Status Date / Time No Known Allergies Allergy Verified 09/30/23 11:27 Plan I have reviewed the history and physical and performed a pertinent physical examination on my patient. No changes have occurred unless specified. Time Spent With Patient Time: Total time managing care of this patient today ____ minutes.
--- NOTE | 2023-09-30 12:36 | W.PM.OPN ---
Operative Note Operative Note Date of Service: 09/30/23 Narrative: Preop diagnosis: 1. Right Carpal tunnel syndrome Postop diagnosis: same Procedure: 1. Right Carpal tunnel release Surgeon: Lisha Riggins MD Anesthesia: local block using 1% lidocaine with epinephrine Findings: Thickened transverse carpal ligament. EBL: Less than 5 mL Specimens: None Complications: None Disposition: Brought to recovery room in stable condition Plan: Follow-up for 10-14 days for wound check and suture removal Indications: The patient is a 68 years old, with right carpal tunnel syndrome that has been unresponsive to nonoperative management. The risks and benefits of operative treatment including but not limited to risk of damage to blood vessels, nerves, tendons, infection, persistent pain, persistent symptoms, or possible need for additional surgery were discussed with the patient and the patient wishes to proceed with surgery. Procedure: Once consent was obtained a local block was performed using a combination of 1% lidocaine with epinephrine. The patient was then brought back to the operating suite and placed on the operative table in supine position. The right upper extremity was prepped and draped in a standard surgical fashion. Once assured that we had a good block, a 2.0 cm longitudinal incision was made centered over the carpal tunnel. The incision was made through the skin to the subcutaneous tissues using a #15 blade. Dissection was made down to the level of the transverse carpal ligament with care being taken to protect the palmar cutaneous nerve. Once the transverse carpal ligament was clearly visualized, a longitudinal incision was made in the transverse carpal ligament 1st using a #15 blade, then using tenotomy scissors under direct visualization. Care was taken to look for and protect the motor branch of the median nerve when seen in this area. Once satisfied with our carpal tunnel release the wound was copiously irrigated with normal saline and hemostasis was obtained with a brief period of local pressure. The skin edges were reapproximated with some 5.0 nylon suture material and a sterile dressing was applied. The patient appears to have tolerated the procedure well and with no complications. All digits were well vascularized at the conclusion of the case. Assessment & Plan Assessment & Plan (1) Carpal tunnel syndrome of right wrist: Code(s): G56.01 - Carpal tunnel syndrome, right upper limb Category: Medical Plan Assessment and plan: 1. Right carpal tunnel syndrome I evaluated the patient today in preop hold. The risks and benefits of operative treatment were discussed with the patient and the patient wishes to proceed with surgery. These risks include, but are not limited to risk of damage to blood vessels, nerves, tendons, infection, recurrence, incomplete relief of preoperative symptoms, persistent pain, possible need for further surgery and the risks associated with regional blocks and anesthesia. The plan is to take the patient to the operating room today for the following procedures: 1. Right carpal tunnel release 2. [ ] All of the preoperative paperwork including the consent was filled out today and signed. All the patient's questions were answered. Medications: New oxycodone-acetaminophen 5-325 mg Partial Fill upon patient request. 1 tab PO Q6H PRN 5 tabs 0RF pain
[2023-09-30 13:50] VITALS: BP 162/72; PULSE 75; RESP 18; O2SAT 96
== END 2023-09-30 13:53 | disposition home or self-care (01) ==
PROVIDERS: PCP Nurse Practitioner Family; Visit Provider Orthopaedic Surgery
PROC: (CPT 64721; principal; 2023-09-30 11:50)
DX: G56.01 Carpal tunnel syndrome, right upper limb (principal); R20.0 Anesthesia of skin; M25.649 Stiffness of unspecified hand, not elsewhere classified
CPT/HCPCS: 64721; J0171

== ENCOUNTER → 2023-09-30 10:15 | Outpatient (BNV) | payer MEDICARE, SELFPAY | PROVIDERS: PCP Nurse Practitioner Family; Visit Provider Orthopaedic Surgery | DX: G56.01 Carpal tunnel syndrome, right upper limb (principal) | CPT/HCPCS: 64721 ==

== ENCOUNTER 2023-10-15 14:28 | Outpatient (AMB) | payer OTHER, SELFPAY ==
[2023-10-15 14:32] VITALS: BMI 27.7
--- NOTE | 2023-10-15 14:32 | A.OFFVIS_ITS ---
Intake Vital Signs 10/15/23 14:32 Height 5 ft 8 in Weight 182 lb BMI 27.7 Intake Visit Reasons: PO-Rt CTR 09/30/23 Intake Note: Raghav 68 yr old male presents today for his PO visit for his right hand CTR 09/30/23. States symptoms have improved. Sutures removed and steri strips applied Allergies No Known Allergies Allergy (Verified 10/15/23 14:36) HPI PO-Rt CTR 09/30/23 HPI Details Raghav is a 68 year old right hand dominant man who returns S/P right carpal tunnel release, DOS: 09/30/23 He says he is doing well and his sensation is now normal in his right hand, with good relief of his nighttime symptoms. He says his left index finger feel numb all the time, and he continues to have intermittent numbness in his left thumb & middle finger He says he continues to have difficulty with stiffness and pain bilaterally. He reports feeling tightness in his fingers at times, particularly of his left index & middle fingers. He found his symptoms began and worsened after his knee surgery as he had to walk using crutches & a cane. He says he was gripping these devices very hard and it made his pain and numbness worse. He says he is currently retired, but stays active with yardwork and other cephalometric tracer. [facility] Medical History Carpal tunnel syndrome on both sides No pertinent past medical history Surgical History (Updated 09/30/23 @ 11:27 by Ana Grajeda) History of knee surgery History of arthroscopic surgery of shoulder Family History Father Stomach cancer Social History Housing: House Alcohol intake: current Comment: Not too bad. I can tell somebodys been in there pt states Patient Tobacco Use Status: Former Tobacco user Cigarette Packs Per Day: 0.5 Cigarettes Per Day: 10 Years Smoked: 20 e-Cigarette/Vaping Use: Never Used service: No Current occupational status: retired Cognitive needs: No Hearing needs: No Vision needs: No Review of Systems Const All systems reviewed & are unremarkable except as noted in HPI and below Physical Exam Vital Signs: BMI result Body Mass Index 27.7 Const General: no acute distress and alert Orientation/consciousness: patient oriented x3 Neuro General: patient oriented x3 Extrem Other: The patient was alert oriented and in no acute distress The incision is healing well with no erythema drainage or evidence of infection. Sutures removed and Steri-Strips applied Before leaving clinic he could make a fist and extend all his digits bilaterally Sensation is improved to nearly normal to the tips of all digits of the right hand Cap refill is brisk Nerve Conduction Study: IMPRESSION: 1. This is an abnormal study. 2. There is electrodiagnostic evidence for right moderate-severe median neuropathy at the wrist, consistent with carpal tunnel syndrome. 3. There is no electrodiagnostic evidence for ulnar neuropathy, brachial plexopathy, or cervical radiculopathy. 4. There is no electrodiagnostic evidence for left median neuropathy at the wrist. CLINICAL COMMENT: If symptoms persist on left side, we can repeat testing 6-12 months. Meggan Carroll MD, YE 06/14/23 Psych Appearance: grossly normal Affect: normal affect Attitude: cooperative Assessment & Plan Assessment & Plan (1) Carpal tunnel syndrome of right wrist: Code(s): G56.01 - Carpal tunnel syndrome, right upper limb (2) Numbness of left hand: Code(s): R20.0 - Anesthesia of skin (3) Stiffness of hand joint: Code(s): M25.649 - Stiffness of unspecified hand, not elsewhere classified Plan Assessment & Plan: 1. Right carpal tunnel syndrome, S/P release Date of surgery 09/30/2023 Pre-operative symptoms intermittent, but daily, worse at night With dense numbness in the middle finger Now with more normal sensation The patient appears to be doing well post-operatively I educated him about the post-operative course I explained the signs and symptoms of infection I discussed activity modifications, he is to lift nothing heavier than a cellphone for the next two weeks He will perform gentle ROM exercises at home He should gently massage about the incision site to reduce the risk of hypersensitivity He can follow up prn 2. Bilateral hand stiffness, generalized Primarily affecting the left index & middle MCP joints I demonstrated ROM exercises he can perform at home an I encouraged him to work on his ROM at home I ordered OT hand therapy to work on ROM & normalizing function 3. Left hand numbness In the median nerve distribution, with dense numbness in the index finger No findings on NCS Can reassess no sooner than 12/14/23 Be aware that when he is complaining of carpal tunnel syndrome in his left hand, the patient at least today was mostly complaining about stiffness and discomfort in the 2nd and 3rd MCP joints, rather than numbness. Scribed for Lisha Riggins MD by Gareth Estrada, medical lab director, on 10/15/23 at 2:40 PM, EST. Orders: Orders OT Evaluation and Treatment Today G56.01 - Carpal tunnel syndrome, right upper limb, M25.649 - Stiffness of unspecified hand, not elsewhere classified, R20.0 - Anesthesia of skin Coding Level of Care Code Global (19788) Diagnoses Carpal tunnel syndrome of right wrist G56.01 Numbness of left hand R20.0 Stiffness of hand joint M25.649
== END 2023-10-15 14:42 | disposition home or self-care (01) ==
PROVIDERS: PCP Nurse Practitioner Family; Visit Provider Orthopaedic Surgery
DX: G56.01 Carpal tunnel syndrome, right upper limb (principal); R20.0 Anesthesia of skin; M25.649 Stiffness of unspecified hand, not elsewhere classified
CPT/HCPCS: 99024

== ENCOUNTER → 2023-10-15 14:28 | Outpatient (BNVA) | payer OTHER, SELFPAY | PROVIDERS: PCP Nurse Practitioner Family; Visit Provider Orthopaedic Surgery ==

== ENCOUNTER 2023-10-28 17:03 | Outpatient (AMB) | payer OTHER, SELFPAY ==
[2023-10-28 17:06] VITALS: BP 148/78; PULSE 77; O2SAT 97; BMI 26.8
--- NOTE | 2023-10-28 17:06 | A.OFFPC_ITS ---
Vital Signs 10/28/23 17:06 10/28/23 17:23 Height 5 ft 8 in Weight 176 lb BMI 26.8 BP 148/78 H 130/60 Blood Pressure Location Lt brachial Rt brachial Position Sitting Sitting Pulse 77 Pulse Oximetry (%) 97 Oxygen Delivery Method Room Air Intake Visit Reasons: F/U HTN Allergies No Known Allergies Allergy (Verified 10/28/23 17:15) Medication List - Last Reconciled 10/28/23 by Kathy Davenport CNP acetaminophen-codeine 300-30 mg 1 tab PO Q12H PRN amlodipine 5 mg PO DAILY 30 days lisinopril 10 mg PO DAILY 30 days naproxen 500 mg PO BID PRN 14 days Tobacco use date assessed: 08/05/23 Dental Screening Dental Screen Date: 09/24/23 HPI HPI Comments History of Present Illness Details 68-year-old male presents for hypertensi on follow-up. He admits to taking lisinopril 10 mg daily and amlodipine 5 mg daily without adverse reactions. He states that he has been maintaining a low-sodium diet. He offers no complaints and denies acute symptoms at this time. He notes that he had surgery to the left hand for carpal tunnel syndrome at [facility] on 09/30/2023. No acute symptoms at this time. He is currently doing OT. [facility] Medical History Carpal tunnel syndrome on both sides No pertinent past medical history Surgical History History of knee surgery History of arthroscopic surgery of shoulder Family History Father Stomach cancer Social History Housing: House Alcohol intake: current Comment: Not too bad. I can tell somebodys been in there pt states Patient Tobacco Use Status: Former Tobacco user Cigarette Packs Per Day: 0.5 Cigarettes Per Day: 10 Years Smoked: 20 e-Cigarette/Vaping Use: Never Used service: No Current occupational status: retired Cognitive needs: No Hearing needs: No Vision needs: No Review of Systems Const Details: Const Denies chills, Denies fatigue, Denies fever(s), Denies headache(s) and Denies weakness ENT Denies dizziness and Denies headache(s) Card Denies chest pain, Denies lightheadedness, Denies dyspnea and Denies other (Palpitations) Resp Denies cough, Denies dyspnea, Denies wheezing and Denies other ( shortness of breath) GI Denies abdominal pain, Denies melena, Denies hematochezia, Denies change in bowel habits, Denies dyspepsia and Denies nausea Denies hematuria and Denies dysuria Musc Denies abnormal gait, Denies myalgias, Denies arthralgias, Denies numbness and Denies tingling Skin/Breast Denies rash, Denies unusual bruising and Denies wounds Neuro Denies abnormal gait, Denies dizziness, Denies headache(s), Denies memory loss, Denies numbness, Denies Sensory deficit (Neuro), Denies tingling and Denies weakness Psych Denies anxiety, Denies depression, Denies memory loss Endo Denies cold intolerance, Denies fatigue, Denies heat intolerance, Denies polydipsia and Denies polyuria Aller/Immun Denies wheezing Physical exam (Primary Care) Vital Signs: Last Vital Signs Pulse 77 10/28/23 17:06 BP 148/78 H 10/28/23 17:06 Pulse Ox 97 10/28/23 17:06 Oxygen Delivery Method Room Air 10/28/23 17:06 BMI result Body Mass Index 26.8 Tobacco/Smoking Status: Tobacco use Status Tobacco use date assessed 08/05/23 10/28/23 17:10 Patient Tobacco Use Status Former Tobacco user 10/28/23 17:10 e-Cigarette/Vaping Use Never Used 10/28/23 17:10 Const Other: General: no acute distress and well developed Nutritional Appearance: well nourished Orientation/consciousness: patient oriented x3 [facility] Head: Yes normocephalic and Yes atraumatic Eyes General: appearance normal, both eyes and all related structures Pupils: Equal, round and reactive pupils present EOM: EOMs intact bilaterally Resp Effort & Inspection: normal respiratory effort Auscultation: clear to auscultation bilaterally Cardio Rate: regular rate Rhythm: regular rhythm Heart sounds: S1 normal heart sound present, S2 normal heart sound present, no gallops, no murmurs and no rubs GI Palpation (GI): No Abdominal aortic bruit present, Soft to palpation, nontender, No hepatosplenomegaly present and No Rebound tenderness present Auscultation: normal bowel sounds General: Yes no CVA tenderness Back/Spine/Pelvis Back: no CVA tenderness Cervical Spine: cervical ROM normal and No Cervical spine tenderness Thoracic/Lumbar Spine: thoraco-lumbar ROM normal, No pain with thoraco-lumbar ROM, No thoracic spinal tenderness and No lumbar spinal tenderness Extrem General: Yes normal to inspection, No edema and No calf tenderness Skin General: warm and dry. Normal skin color. Normal skin turgor Neuro General: patient oriented x3, gait normal and no focal neuro deficit Cranial nerves: Yes Equal, round and reactive pupils present Cognition (Neuro): normal cognition Gait exam (Neuro): Normal gait present Sensory Exam: No Sensory deficit (Neuro) Psych Appearance: grossly normal Affect: normal affect Attitude: cooperative Thought process: Normal thought process present Assessment and Plan Assessment & Plan (1) Hypertension: Code(s): I10 - Essential (primary) hypertension Qualifiers: Hypertension type: primary hypertension Qualified Code(s): I10 - Essential (primary) hypertension Plan: Resting blood pressure is 130/60, within goal of less than 140/90 Continue to take lisinopril 10 mg daily and amlodipine 5 mg daily Low-sodium diet encouraged Will continue to monitor blood pressure Encouraged to get fasting labs and urinalysis done before his next visit Follow-up in 3 months for an extended physical exam or return sooner with symptoms or concerns Verbalized understanding and agreed with treatment plan (2) Laboratory tests ordered as part of a complete physical exam (CPE): Code(s): Z00.00 - Encounter for general adult medical examination without abnormal findings Plan: Fasting labs ordered in preparation of a physical exam. Advised to fast for at least 10 hours before getting labs drawn. May drink water Verbalized understanding and agreed with treatment plan. Orders: Orders Comprehensive Dille. Panel Fast Today Z00.00 - Encounter for general adult medical examination without abnormal findings Lipid Panel Today Z00.00 - Encounter for general adult medical examination with out abnormal findings UA CC w/rflx Micro + Cult Today Z00.00 - Encounter for general adult medical examination without abnormal findings PSA, Ultra Sensitive Today Z00.00 - Encounter for general adult medical examination without abnormal findings Complete Blood Count Auto Diff Today Z00.00 - Encounter for general adult medical examination without abnormal findings TSH reflex Free T4 Today Z00.00 - Encounter for general adult medical examination without abnormal findings Coding Level of Care Code Est Pt Level 4 (97138) Diagnoses Primary hypertension I10 Hypertension type: primary hypertension Laboratory tests ordered as part of a complete physical exam (CPE) Z00.00
[2023-10-28 17:23] VITALS: BP 130/60
== END 2023-10-28 17:33 | disposition home or self-care (01) ==
LOC: HO.HMGFM 17:03
PROVIDERS: PCP Nurse Practitioner Family; Visit Provider Nurse Practitioner Family
DX: I10 Essential (primary) hypertension (principal); Z00.00 Encounter for general adult medical examination without abnormal findings
CPT/HCPCS: 99214

== ENCOUNTER 2023-12-10 14:00 | Outpatient (RCR) | payer OTHER, SELFPAY ==
--- NOTE | 2023-12-12 14:41 | MHC.OT.DC ---
[address] [phone] F: [phone] Occupational Therapy Discharge Note Patient Name: Raghav Underwood Provider: Dr Lisha Riggins Diagnosis: (R)CTR Date of Surgery: 09/30/23 Date of Evaluation: 10/31/23 Date of Discharge: 12/12/23 Treatments to Date: 7 Discharge Status: Achieved Goals Improved Function Independent with HEP Discharge Summary: Raghav is doing very well post op right CTR. He has met all therapy goals and primary limitation is heavy gripping of larger items (jars tops, etc). He continues to have some stiffness still in left index, but range is grossly WFL with no significant functional loss. I anticipate he will continue to do well w/ self management and home exercises. Electronically Signed By: LISETTE Medina/Betsy MATTSON Reviewed/agree with student documentation: N/A Therapist: Please Sign and return to therapist, thank you for your referral.
== END 2023-12-12 14:41 | disposition home or self-care (01) ==
LOC: HO.OT 14:00
PROVIDERS: PCP Family Medicine; Visit Provider Orthopaedic Surgery
DX: G56.01 Carpal tunnel syndrome, right upper limb (principal); R20.0 Anesthesia of skin; M25.641 Stiffness of right hand, not elsewhere classified
CPT/HCPCS: 97110; 97140; 97167

== ENCOUNTER 2023-12-18 13:13 | Outpatient (AMB) | payer OTHER, SELFPAY ==
--- NOTE | 2023-12-18 13:16 | MHC.OFFVIS ---
Vital Signs 12/18/23 13:21 Height 5 ft 8 in Weight 176 lb BMI 26.8 Intake Visit Reasons: OV-Rt Knee 04/12/23 DR-follow up Intake Note: Raghav gross 68 year old male presents today for a S/P right knee , DOS 04/12/23 DR. The patient reports mild intermittent discomfort along the medial aspect of his right knee. He also reports intermittent shoulder pain. The patient continues to go to [employer] to exercise. He denies any fevers or chills. He has taken Tylenol and anti-inflammatory medicines which gave him mild relief. Allergies No Known Allergies Allergy (Verified 12/18/23 13:21) Medication List - Last Reconciled 12/18/23 by Abdirashid Acevedo MD acetaminophen-codeine 300-30 mg 1 tab PO Q12H PRN amlodipine 5 mg PO DAILY 30 days lisinopril 10 mg PO DAILY 30 days naproxen 500 mg PO BID PRN 14 days PFSH Medical History (Updated 12/19/23 @ 08:11 by Abdirashid Acevedo MD) Carpal tunnel syndrome on both sides No pertinent past medical history Surgical History History of knee surgery History of arthroscopic surgery of shoulder Family History Father Stomach cancer Social History Housing: House Alcohol intake: current Comment: Not too bad. I can tell somebodys been in there pt states Patient Tobacco Use Status: Former Tobacco user Cigarette Packs Per Day: 0.5 Cigarettes Per Day: 10 Years Smoked: 20 e-Cigarette/Vaping Use: Never Used service: No Current occupational status: retired Cognitive needs: No Hearing needs: No Vision needs: No Physical Exam Vital Signs: BMI result Body Mass Index 26.8 Const Other: Well-nourished well-developed very friendly male awake alert and oriented x3 in no acute distress Extrem Other: Bilateral lower extremity examination shows good capillary refill, no skin lesions noted, normal sensation light touch Right knee examination shows that the surgical incisions are well healed, no erythema, mild crepitus with range of motion, no instability Assessment & Plan Assessment & Plan (1) Arthritis of right knee: Code(s): M17.11 - Unilateral primary osteoarthritis, right knee Category: Medical Plan Mr. Underwood continues to do fairly well after undergoing right knee arthroscopic surgery on 04/12/2023. He does have residual discomfort due to degenerative joint disease. I had a lengthy discussion with the patient regarding the treatment options. We will hold off on a cortisone injection at this time. I did give him a prescription for a Medrol Dosepak. I will see him back in 4-6 weeks' time for repeat clinical examination. Feel free to call me at any time should questions regarding his orthopedic management arise. I spent 21 minutes in reviewing the patient's records and imaging studies, seeing the patient and documenting in the medical record. Medications: New methylprednisolone (Medrol (Chung)) PO PER PKG DIR 21 ea 0RF Coding Level of Care Code Est Pt Level 3 (60258) Diagnoses Arthritis of right knee M17.11
[2023-12-18 13:21] VITALS: BMI 26.8
== END 2023-12-18 13:29 | disposition home or self-care (01) ==
PROVIDERS: PCP Family Medicine; Visit Provider Orthopaedic Surgery
DX: M17.11 Unilateral primary osteoarthritis, right knee (principal)
CPT/HCPCS: 99213

== ENCOUNTER → 2023-12-18 13:13 | Outpatient (BNVA) | payer OTHER, SELFPAY | PROVIDERS: PCP Family Medicine; Visit Provider Orthopaedic Surgery ==

== ENCOUNTER 2024-01-23 11:57 | Outpatient (REF) | payer OTHER, SELFPAY ==
[2024-01-23 14:44] LABS: Appearance Urine Clear; Color Urine Yellow; Glucose Urine UA Negative (Negative); Leukocyte Esterase Urine Negative (Negative); Nitrite Urine Negative (Negative); Specific Gravity - Urine 1.015 (1.005-1.025); Urine Blood Negative (Negative); Urine Ketones Negative (Negative); Urine Protein Negative (Neg-Trace)
[2024-01-23 14:48] LABS: MANUAL DIFF FLAG NO
[2024-01-23 14:57] LABS: Basophils Absolute Auto 0.1 X10*3/uL (0.0-0.2); Basophils Percent Auto 0.9 % (0-2); Eosinophils Absolute Auto 0.1 X10*3/uL (0.0-0.4); Eosinophils Percent Auto 2.2 % (0-4); Hematocrit 36.5 % (42.0-52.0); Hemoglobin 12.2 g/dl (14.0-18.0); Imm Gran Abs Auto 0.02 X10*3/uL (0.00-0.03); Imm Gran Pct Auto 0.3 % (0.0-0.4); Lymphocytes Absolute Auto 1.9 X10*3/uL (1.2-4.9); Lymphocytes Percent Auto 30.3 % (20-40); Mean Corpuscular HGB Conc 33.4 g/dl (31.0-36.0); Mean Corpuscular Hemoglobin 31.4 pg (27.0-33.0); Mean Corpuscular Volume 93.8 fL (80.0-98.0); Mean Platelet Volume 9.7 fL (9.4-12.4); Monocytes Absolute Auto 0.6 X10*3/uL (0.1-1.2); Monocytes Percent Auto 9.2 % (2-11); Neutrophils Absolute Auto 3.7 x10*3/uL (2.0-8.3); Neutrophils Percent Auto 57.1 % (45-73); Platelet Count 345 X10*3/uL (160-400); Red Blood Count 3.89 X10*6/uL (4.60-5.80); Red Cell Distribution Width 12.6 % (11.0-16.0); White Blood Count 6.4 X10*3/uL (4.8-10.8)
[2024-01-23 15:40] LABS: Alanine Aminotransferase 13 U/L (0-40); Albumin Level 4.2 g/dL (3.5-5.0); Alkaline Phosphatase 79 U/L (39-117); Anion Gap 12 (12-20); Aspartate Amino Transferase 17 U/L (5-37); Bilirubin Total 0.6 mg/dL (0.0-1.0); Blood Urea Nitrogen 9 mg/dL (9-16); Calcium 9.7 mg/dL (8.4-10.2); Carbon Dioxide 25 mmol/L (22-29); Chloride 103 mmol/L (96-108); Cholesterol 187 mg/dL (<200); Estimated Glomerular Filt Rate > 60; Glucose Fasting 92 mg/dL (60-99); HDL Cholesterol 68 mg/dL (>40); LDL Cholesterol Calculated 106 mg/dL (<100); Potassium 4.5 mmol/L (3.3-5.1); Sodium 135 mmol/L (135-145); Total Protein 7.1 g/dL (6.5-8.0); Triglycerides 68 mg/dL (<150)
[2024-01-23 15:55] LABS: TSH reflex Free T4 1.38 uIU/mL (0.32-4.0)
[2024-01-28 23:04] LABS: PSA, Ultra Sensitive 2.16 ng/mL
== END 2024-01-23 11:58 | disposition home or self-care (01) ==
LOC: HO.WFDLDS 11:57
PROVIDERS: Visit Provider Nurse Practitioner Family
DX: Z00.00 Encounter for general adult medical examination without abnormal findings (principal); Z12.5 Encounter for screening for malignant neoplasm of prostate
CPT/HCPCS: 36415; 80053; 80061; 81003; 84153; 84443; 85025

== ENCOUNTER 2024-01-28 13:18 | Outpatient (AMB) | payer OTHER, SELFPAY ==
--- NOTE | 2024-01-28 13:21 | MHC.PC.OV ---
Vital Signs 01/28/24 13:28 Height 5 ft 8 in Weight 170 lb 4 oz BMI 25.9 BP 140/60 H Blood Pressure Location Rt brachial Position Sitting Respiration 16 Pulse 73 Pulse Source Pulse Oximeter Temp 97.5 F Temp Source Temporal Artery Scan Pulse Oximetry (%) 98 Oxygen Delivery Method Room Air Intake Visit Reasons: 3 months f/u CPE, Labs Intake Note: patient here for CPE Continuous Improvement Lead Required: No Allergies No Known Allergies Allergy (Verified 01/30/24 13:39) Medication List - Last Reconciled 01/28/24 by Kathy Davenport CNP amlodipine 5 mg PO DAILY 30 days lisinopril 10 mg PO DAILY 30 days Tobacco use date assessed: 01/28/24 Fall risk assessment: No Falls in past year Dental Screening Dental Screen Date: 01/28/24 Did you have a dental visit in the last 12 months?: Yes Did you have a dental problem in the last 6 months where you did not have access to dental care?: No Was dental information given to patient?: Patient has dentist HPI HPI Comments History of Present Illness Details 69-year-old male presents for an extended physical exam He has past medical history significant for hypertension and hypercholesterolemia He is on amlodipine 5 mg and lisinopril 10 mg which he admits to taking as prescribed without adverse reactions He notes that has been making healthy dietary changes and sleeping well. He has also been exercising by working in his yard He offers no complaints and denies acute symptoms at this time Last colonoscopy was 8 years; normal. He was seen by [facility] gastroenterology in 02/2023, was given GI prep for a colonoscopy. He notes that he was never contacted to scheduled an appointment for the procedure He has never been vaccinated for shingles or pneumonia Former smoker. Drinks alcohol occasionally. No recreational drugs [facility] Medical History (Updated 01/31/24 @ 11:30 by Kathy Davenport CNP) Carpal tunnel syndrome on both sides No pertinent past medical history Surgical History History of knee surgery History of arthroscopic surgery of shoulder Family History (Updated 01/28/24 @ 13:27 by Brittni Perea) Father Stomach cancer Social History Housing: House Alcohol intake: current Comment: Not too bad. I can tell somebodys been in there pt states Patient Tobacco Use Status: Former Tobacco user Cigarette Packs Per Day: 0.5 Cigarettes Per Day: 10 Years Smoked: 20 e-Cigarette/Vaping Use: Never Used Second Hand Smoke Exposure: No service: No Current occupational status: retired Cognitive needs: No Hearing needs: No Vision needs: No Questionnaire PHQ-9 Over the last 2 weeks, how often have you been bothered by any of the following problems? 1. Little interest or pleasure in doing things: not at all 2. Feeling down, depressed, or hopeless: not at all 3. Trouble falling or staying asleep, or sleeping too much: not at all 4. Feeling tired or having little energy: not at all 5. Poor appetite or overeating: not at all 6. Feeling bad about yourself - or that you are a failure or have let yourself or your family down: not at all 7. Trouble concentrating on things, such as reading the newspaper or watching television: not at all 8. Moving or speaking so slowly that other people could have noticed. Or the opposite - being so fidgety or restless that you have been moving around a lot more than usual: not at all 9. Thoughts that you would be better off or of hurting yourself in some way: not at all Total score: 0 Depression Screening Interpretation: Negative Depression Screening Done: Yes 00830 - PHQ-9 Billing: Yes Source: Developed by Drs. Tucker Gastelum, Christine Aknis, Bart Walker and colleagues, with an educational wu from [employer]. Thrive Questionnaire Date Thrive assessed: 01/28/24 I am a: Patient What is your living situation today?: I have a steady place to live Within the past 12 months, did the food you bought not last and you didn't have the money to get more?: Sometimes True Within the past 12 months, did you worry whether your food would run out before you got money to buy more?: Sometimes True Do you have trouble paying for medicines?: No Do you have trouble getting transportation to medical appointments?: No Do you have trouble paying your heating and electricity bill?: No Do you have trouble taking care of your child, family member or friend?: No Do you have trouble with day-to-day activities such as bathing, preparing meals, shopping, managing finances, etc.?: No Are you currently unemployed and looking for a job?: No Are you interested in more education?: No Please select the resources that you would like help with: None Currently or been in a relationship where the following occur: No concerns reported THRIVE Score: 2 AUDIT C Alcohol Use Questionnaire (AUDIT-C) 1. How often do you have a drink containing alcohol?: 2-4 times a month 2. How many drinks containing alcohol do you have on a typical day when you are drinking?: 1 or 2 3. How often do you have six or more drinks on one occasion?: Less than monthly Total Score: 3 SHANON-7 AMB Questionnaire SHANON-7 Date SHANON - 7 assessed: 01/28/24 Feeling nervous, anxious, or on edge: 0 = Not at all Not being able to stop or control worryin = Not at all Worrying too much about different things: 0 = Not at all Trouble relaxin = Not at all Being so restless that it is hard to sit still: 0 = Not at all Becoming easily annoyed or irritable: 0 = Not at all Feeling afraid as if something awful might happen: 0 = Not at all Total SHANON-7 score (0-4 normal; 5-9 mild; 10-14 moderate; 15-21 severe): 0 Source: Developed by Drs. Tucker Gastelum, Christine Akins, Bart Walker and colleagues, with an educational wu from [employer]. SHANON-7 Assessment Billing SHANON-7 Assessment Tool: SHANON-7 Assessment 75309 Review of Systems Const Details: Denies chills, Denies fatigue, Denies fever(s), Denies headache(s) and Denies weakness HEENT Denies change in vision, Denies dizziness, Denies headache(s), Denies hearing loss, Denies nasal congestion, Denies sinus pain, Denies sinus pressure and Denies sore throat Card Denies chest pain, Denies lightheadedness, Denies dyspnea and Denies other (palpitations) Resp Denies cough, Denies dyspnea and Denies wheezing GI Denies abdominal pain, Denies melena, Denies hematochezia, Denies change in bowel habits, Denies dyspepsia and Denies nausea Denies hematuria and Denies dysuria Musc Denies abnormal gait, Denies myalgias, Denies arthralgias, Denies numbness and Denies tingling Skin/Breast Denies rash, Denies unusual bruising and Denies wounds Neuro Denies abnormal gait, Denies dizziness, Denies headache(s), Denies memory loss, Denies numbness, Denies Sensory deficit (Neuro), Denies tingling and Denies weakness Psych Denies anxiety, Denies depression and Denies memory loss Endo Denies cold intolerance, Denies fatigue, Denies heat intolerance, Denies polydipsia and Denies polyuria Damon/Lymph Denies easy bleeding and Denies easy bruising Aller/Immun Denies wheezing Physical exam (Primary Care) Vital Signs: Last Vital Signs Temp 97.5 F 01/28/24 13:28 Pulse 73 01/28/24 13:28 Resp 16 01/28/24 13:28 BP 140/60 H 01/28/24 13:28 Pulse Ox 98 01/28/24 13:28 Oxygen Delivery Method Room Air 01/28/24 13:28 BMI result Body Mass Index 25.9 Tobacco/Smoking Status: Tobacco use Status Tobacco use date assessed 01/28/24 01/28/24 13:28 Patient Tobacco Use Status Former Tobacco user 01/28/24 13:23 e-Cigarette/Vaping Use Never Used 01/28/24 13:23 PHQ-9: PHQ-9 Score PHQ-9: Total score 0 02/03/24 10:27 Depression Screening Interpretation: Negative Thrive Assessment: Date of Thrive Assessment Date Thrive assessed 01/28/24 01/28/24 13:33 Currently or been in a relationship where the following occur: No concerns reported Const Other: General: no acute distress, well developed, alert and awake Nutritional Appearance: well nourished Orientation/consciousness: patient oriented x3 HENMT Head: Yes normocephalic and Yes atraumatic Ears: hearing grossly normal bilaterally and TM's normal bilaterally General nose exam: Normal external nose present and Normal nares present Mouth: Normal oral and palatal mucosa present and moist mucous membranes Teeth and gingiva: dentition normal Throat: Yes oropharynx normal Eyes Pupils: Equal, round and reactive pupils present and Pupil accommodation reflex normal EOM: EOMs intact bilaterally Neck Neck: Yes normal visual inspection, Yes no lymphadenopathy and Yes trachea midline Thyroid: Thyroid normal Carotids: bruits bilaterally Lymphatic: no lymphadenopathy noted Chest Chest palpation & inspection: normal inspection of the chest Resp Effort & Inspection: normal respiratory effort Auscultation: clear to auscultation bilaterally Cardio Rate: regular rate Rhythm: regular rhythm Heart sounds: S1 normal heart sound present, S2 normal heart sound present, no gallops, no murmurs and no rubs Bruits: no abdominal aortic bruits and no carotid bruits GI Palpation (GI): No Abdominal aortic bruit present, Soft to palpation, nontender, No hepatosplenomegaly present and No Rebound tenderness present Auscultation: normal bowel sounds General: Yes no CVA tenderness Back/Spine/Pelvis Back: no CVA tenderness Cervical Spine: cervical ROM normal and No Cervical spine tenderness Thoracic/Lumbar Spine: thoraco-lumbar ROM normal, No pain with thoraco-lumbar ROM, No thoracic spinal tenderness and No lumbar spinal tenderness Skin General: warm and dry. Normal skin color. Normal skin turgor Lesions: no lesions Rashes: no rashes Trauma: no lacerations or abrasions Wounds: no wounds Nails: normal Neuro General: patient oriented x3, gait normal and CN's II-XI intact bilaterally Cranial nerves: Yes Equal, round and reactive pupils present Cognition (Neuro): normal cognition Gait exam (Neuro): Normal gait present Motor exam (neuro): 5/5 motor strength present throughout Sensory Exam: No Sensory deficit (Neuro) Deep tendon reflexes (DTR's): Right patellar reflex intensity grade: 2+ and Left patellar reflex intensity grade: 2+ Extrem General: Yes normal to inspection, No edema and No calf tenderness Psych Appearance: grossly normal Affect: normal affect Attitude: cooperative Thought process: Normal thought process present Assessment and Plan Assessment & Plan (1) Normal physical examination, routine: Code(s): Z00.00 - Encounter for general adult medical examination without abnormal findings Plan: No significant physical restrictions or limitations noted Continue current treatment regimen Healthy diet and routine exercise encouraged Follow-up in 2 weeks for hypertension or sooner with symptoms or concerns Verbalized understanding and agreed with the treatment plan (2) Hypertension: Code(s): I10 - Essential (primary) hypertension Qualifiers: Hypertension type: primary hypertension Qualified Code(s): I10 - Essential (primary) hypertension Plan: Resting BP is 140/60, above new goal of less than 130/80 due to likely bilateral carotid stenosis Will increase lisinopril to 20 mg daily Low-sodium diet encouraged Follow-up in 2 weeks or sooner with symptoms or concerns Verbalized understanding and agreed with treatment plan (3) Hypercholesterolemia: Code(s): E78.00 - Pure hypercholesterolemia, unspecified Plan: Recent total cholesterol and LDL levels are normal, 187 and 106 respectively Advised to limit foods high in saturated fat and avoid foods high in trans fat Routine exercise encouraged Will monitor lipid panel level periodically Verbalized understanding and agreed with the treatment plan (4) Bilateral carotid bruits: Code(s): R09.89 - Other specified symptoms and signs involving the circulatory and respiratory systems Plan: Left greater than right Likely bilateral carotid stenosis Will order carotid ultrasound and echocardiogram Will make changes as needed Follow-up with symptoms or concerns Verbalized understanding and agreed with the plan (5) Vaccine counseling: Code(s): Z71.85 - Encounter for immunization safety counseling Plan: He has not been vaccinated for shingles or pneumonia. Instructed on importance of vaccination and encouraged to get vaccinated for shingles or pneumonia. He may request the vaccines from his local pharmacy. Verbalized understanding and agreed with treatment plan (6) Encounter for screening colonoscopy: Code(s): Z12.11 - Encounter for screening for malignant neoplasm of colon Plan: Last colonoscopy was 8 years; normal. He was seen by [facility] gastroenterology in 02/2023, was given GI prep for a colonoscopy. He notes that he was never contacted to scheduled an appointment for the procedure The [place] research this and found that several failed attempts were made by GI to contact the patient to schedule an appointment for colonoscopy. However, when they finally got in touch with the patient, he informed them that he will call back to schedule an appointment but never did Patient advised to call [facility] Gastroenterology to schedule an appointment for a colonoscopy Orders: Orders CA echo transthoracic complete 01/28/24 R09.89 - Other specified symptoms and signs involving the circulatory and respiratory systems US carotid duplex BI 01/29/24 R09.89 - Other specified symptoms and signs involving the circulatory and respiratory systems Microalbumin, Random (w Creat) 01/28/24 Z00.00 - Encounter for general adult medical examination without abnormal findings Medications: New lisinopril 20 mg PO DAILY 30 tabs 3RF 30 days Discontinued lisinopril Discontinued Reason: Doctor's Order 10 mg PO DAILY 30 days 30 tabs 3RF Coding Level of Care Code Est Pt Level 4 (19974) Est Pt Prev Care >65y(20800) Diagnoses Normal physical examination, routine Z00.00 Primary hypertension I10 Hypertension type: primary hypertension Hypercholesterolemia E78.00 Bilateral carotid bruits R09.89 Vaccine counseling Z71.85 Encounter for screening colonoscopy Z12.11 Additional Codes SHANON-7 Assessment Billing - SHANON-7 Assessment Tool: SHANON-7 Assessment 91918 ([id number])
[2024-01-28 13:28] VITALS: BP 140/60; PULSE 73; RESP 16; TEMP 36.4; O2SAT 98; BMI 25.9
== END 2024-01-28 14:21 | disposition home or self-care (01) ==
PROVIDERS: PCP Nurse Practitioner Family; Visit Provider Nurse Practitioner Family
DX: Z00.00 Encounter for general adult medical examination without abnormal findings (principal); I10 Essential (primary) hypertension; E78.00 Pure hypercholesterolemia, unspecified; R09.89 Other specified symptoms and signs involving the circulatory and respiratory systems; Z71.85 Encounter for immunization safety counseling; Z12.11 Encounter for screening for malignant neoplasm of colon
CPT/HCPCS: 99214; 99397

== ENCOUNTER 2024-01-28 14:16 | Outpatient (REF) | payer OTHER, SELFPAY ==
[2024-01-28 18:08] LABS: Creatinine Urine 77.57 mg/dL; Microalbum/Creatinine Ratio Ur 7.7 ug/mg cr (<30)
== END 2024-01-28 14:17 | disposition home or self-care (01) ==
LOC: HO.WFDLDS 14:16
PROVIDERS: Visit Provider Nurse Practitioner Family
DX: Z00.00 Encounter for general adult medical examination without abnormal findings (principal)
CPT/HCPCS: 82043; 82570

== ENCOUNTER 2024-01-29 14:54 | Outpatient (REF) | payer OTHER, SELFPAY ==
--- NOTE | ~2024-01-29 | US_ITS ---
EXAMINATION: US EXTRACRANIAL CAROTID DUPLEX, BILATERAL CLINICAL INFORMATION: Carotid bruit COMPARISON: None available. TECHNIQUE: Real-time ultrasound and Doppler techniques (integrating B-mode 2-D vascular images, Doppler spectral analysis and color-flow Doppler imaging) were utilized to interrogate the extracranial carotid arteries, the vertebral arteries and proximal subclavian arteries bilaterally. The degree of stenosis is determined by criteria similar to NASCET. FINDINGS: Right Side: 1. There is no significant atherosclerotic plaque seen in the bifurcation/proximal ICA region. 2. The common carotid artery PSV proximally is 117 cm/s and distally 117 cm/s. 3. The proximal internal carotid artery velocities are 101 cm/s systolic and 29 cm/s diastolic. 4. The proximal external carotid artery PSV is 169 cm/s. 5. The vertebral artery shows antegrade flow. 6. The subclavian artery waveforms are normal. Left Side: 1. There is mild atherosclerotic plaque seen in the bifurcation/proximal ICA region. 2. The common carotid artery PSV proximally is 128 cm/s and distally 99 cm/s. 3. The proximal internal carotid artery velocities are 104 cm/s systolic and 32 cm/s diastolic. 4. The proximal external carotid artery PSV is 165 cm/s. 5. The vertebral artery shows antegrade flow. 6. The subclavian artery waveforms are normal. US/US carotid duplex BI IMPRESSION: 1. RIGHT: Normal right internal carotid artery without atherosclerotic plaque or hemodynamically significant stenosis. 2. LEFT: Minimal, non-hemodynamically significant stenosis of the proximal left internal carotid artery corresponding to a 0-49% stenosis by velocity criteria.
== END 2024-01-29 14:55 | disposition home or self-care (01) ==
LOC: HO.US 14:54
PROVIDERS: PCP Family Medicine; Visit Provider Nurse Practitioner Family
DX: R09.89 Other specified symptoms and signs involving the circulatory and respiratory systems (principal)
CPT/HCPCS: 93880

== ENCOUNTER 2024-01-30 13:38 | Outpatient (AMB) | payer OTHER, SELFPAY ==
--- NOTE | 2024-01-30 13:38 | AM.OFFWIN_ITS ---
Intake Vital Signs 01/30/24 13:39 01/30/24 13:55 Height 5 ft 8 in Weight 171 lb BMI 26.0 BP 186/94 H 160/82 H Blood Pressure Location Rt brachial Lt brachial Position Sitting Sitting Pulse 51 Pulse Source Pulse Oximeter Temp 98.2 F Temp Source Oral Pulse Oximetry (%) 98 Oxygen Delivery Method Room Air Intake Visit Reasons: EP LT hand tingling Intake Note: pt here c/o LT hand tingling. Started this morning around 9:00 am Patient Tobacco Use Status: Former Tobacco user Allergies No Known Allergies Allergy (Verified 01/30/24 13:39) Do you need a note to return to daycare/school/sports/work: No HPI HPI Comments History of Present Illness Details Patient is a 69-year-old male complaining of left hand tingling which was worse this morning when he woke up however he states he does have a history of left hand 2nd digit numbness. He did see a hand surgeon about this when he had his carpal tunnel release on his right wrist and they told him he did not need to have any surgical procedures at that time. He states it is not necessarily worse than that but it is still bothering him. He also presented with extremely elevated blood pressure and states that he saw his doctor last week, he did increase his blood pressure medication but he also had him get a carotid ultrasound test. He states that somebody left voicemail this morning telling him he needed to come in to the hospital for more testing and he is very concerned that the carotid ultrasound test is bad and he states that is why his blood pressure is so they did. We were able to look up the results of his carotid ultrasound, I read him the results and he was able to have some relief and took a few minutes to relax, his repeat blood pressure was 160/82. He denies any headache, dizziness, blurry vision. He states he does not have a blood pressure cuff at home. [facility] Medical History (Updated 01/30/24 @ 14:20 by Iseal Roman PA-C) Carpal tunnel syndrome on both sides No pertinent past medical history Surgical History History of knee surgery History of arthroscopic surgery of shoulder Family History (Updated 01/28/24 @ 13:27 by Brittni Perea) Father Stomach cancer Social History Housing: House Alcohol intake: current Comment: Not too bad. I can tell somebodys been in there pt states Patient Tobacco Use Status: Former Tobacco user Cigarette Packs Per Day: 0.5 Cigarettes Per Day: 10 Years Smoked: 20 e-Cigarette/Vaping Use: Never Used Second Hand Smoke Exposure: No service: No Current occupational status: retired Cognitive needs: No Hearing needs: No Vision needs: No Review of Systems Const All systems reviewed & are unremarkable except as noted in HPI and below Neuro Denies Abnormal speech present Physical Exam Vital Signs: Last Vital Signs Temp 98.2 F 01/30/24 13:39 Pulse 51 01/30/24 13:39 BP 186/94 H 01/30/24 13:39 Pulse Ox 98 01/30/24 13:39 Oxygen Delivery Method Room Air 01/30/24 13:39 BMI result Body Mass Index 26.0 Const General: cooperative, healthy appearing, comfortable and no acute distress Orientation/consciousness: patient oriented x3 Limitations: no limitations HEENT Head: Yes normal to inspection Face and sinus: Yes normal facial exam Eyes General: appearance normal, both eyes and all related structures Neck Neck: Yes normal visual inspection and Yes full ROM Resp Effort & Inspection: normal respiratory effort and able to speak in complete sentences Skin General skin exam: no rashes or lesions noted Neuro General: patient oriented x3, gait normal, no focal motor deficits and CN's II- XI intact bilaterally Cognition (Neuro): normal cognition Speech: No Abnormal speech present Gait exam (Neuro): Normal gait present Motor exam (neuro): 5/5 motor strength present throughout and Pronator motor function not present Extrem Other: Left sided wrist Negative Tinel's, negative Mariaa negative Phalen's Full ROM left hand, 5/5 strength, normal capillary refill, no TTP Assessment & Plan Assessment & Plan (1) Anxiety about health: Code(s): R45.89 - Other symptoms and signs involving emotional state Plan: Again, red ultrasound results to patient, he was greatly relieved and his blood pressure systolic came down over 30 points. Though I did explain to him it is still elevated over 140, as his doctor just recently increased his lisinopril, I recommended he obtain a blood pressure cuff, take blood pressure measurements at home when he is relaxed and then bring this log to his doctor if it is consistently over 140 systolic so his doctor can make adjustments as needed. I also prescribed a few hydroxyzine that he can take p.r.n., explained how the medication works and not to drink alcohol or drive while taking the medication. (2) Numbness of left hand: Code(s): R20.0 - Anesthesia of skin Plan: Recommended following up with PCP if symptoms persist, for ortho referral. (3) Hypertension: Code(s): I10 - Essential (primary) hypertension Qualifiers: Hypertension type: primary hypertension Qualified Code(s): I10 - Essential (primary) hypertension Plan: see above Plan see above Medications: New hydroxyzine HCl 10 mg PO QID PRN 20 tabs 0RF anxiety R20.0 - Anesthesia of skin Coding Level of Care Code New Pt Level 4 (18617) Diagnoses Anxiety about health R45.89 Numbness of left hand R20.0 Primary hypertension I10 Hypertension type: primary hypertension
[2024-01-30 13:39] VITALS: BP 186/94; PULSE 51; TEMP 36.8; O2SAT 98; BMI 26.0
[2024-01-30 13:55] VITALS: BP 160/82
== END 2024-01-30 14:24 | disposition home or self-care (01) ==
PROVIDERS: PCP Nurse Practitioner Family; Visit Provider Physician Assistant
DX: R45.89 Other symptoms and signs involving emotional state (principal); R20.0 Anesthesia of skin; I10 Essential (primary) hypertension
CPT/HCPCS: 99204

== ENCOUNTER → 2024-02-12 13:55 | Outpatient (REF) | payer OTHER, SELFPAY ==
--- NOTE | 2024-02-12 13:58 | CA_ITS ---
Transthoracic Echocardiogram Patient (Last, First, Middle): Raghav Underwood, Gender: Male Date of : 1955 Age: 69 Procedure Date: 02/12/2024 Procedure Type: Transthoracic Echocardiogram Location: OP Height: 172.72 cm Weight: 77.57 kg BSA: 1.91 m2 Heart Rate: 67 bpm BP: 160 / 82 mmHg Hand Bunch Maker: KATHY Referring MD: Kathy Davenport CNP Certified Pest Control Technician: Biju Boyer MD Symptoms: R09.89 - Other specified symptoms and signs involving the circulatory an... Study Quality: Adequate ECG Rhythm: Sinus Conclusions: - 1. Normal LV ejection fraction of 60-65% with impaired relaxation filling pattern 2. Normal cardiac valvular Dopplers 3. Normal RV systolic pressure 4. No gross pericardial effusion Findings Left Ventricle Normal left ventricular size, thickness, and systolic function. The visually estimated ejection fraction is between 60-65%. Spectral Doppler is indicative of an impaired relaxation filling pattern. E/E prime ratio is between 8 and 15 consistent with indeterminate filling pressures. Right Ventricle Normal right ventricular cavity size and systolic function. Atria The left atrium is normal in size. There is no evidence of interatrial shunt. The right atrium is normal in size. Aortic Valve There is mild calcification of the aortic valve. There is no aortic valve stenosis. There is no aortic valve regurgitation. Mitral Valve There is mild anterior and posterior mitral leaflet thickening. There is mild mitral annular calcification. There is trace mitral valve regurgitation. There is no mitral valve stenosis. Pulmonic Valve The pulmonic valve is likely normal. There is trace pulmonic valve regurgitation. Tricuspid Valve Normal tricuspid valve structure. There is trace tricuspid valve regurgitation. The right ventricular systolic pressure is normal. The right ventricular systolic pressure is 34 mmHg. Normal right atrial pressure. There is no evidence of pulmonary hypertension. Great Vessels The pulmonary artery was not well visualized. There is no dilatation of the ascending aorta measuring 3.10 cm. Venous The inferior vena cava is normal in size and collapses greater than 50% with inspiration. Pericardium/Pleural There is no evidence of pericardial effusion. Prior Study Comparison No prior study available for comparison. Measurements 2D Linear Measurements IVSd: 0.84 0.6-0.9/0.6-1.0 cm LVIDd: 5.29 3.9-5.3/4.2-5.9 cm LVIDd Index: 2.77 2.4-3.2/2.2-3.1 cm/m2 LVIDs: 2.99 2.0-3.6 cm LA Diam: 4.10 2.7-3.8/3.0-4.0 cm LAIDs Index: 2.15 1.5-2.3 cm/m2 LVOT Diam: 2.30 3.0+(-)1.3 cm 2D Systolic Function EF 4C: 65.80 >55% EF 2C: 63.20 >55% EF BiP: 64.50 >55% Mitral Valve MV Pk E: 1.04 MV PK A: 1.09 MV Decel Time: 220.00 E/A: 1.00 E'Lateral: 7.29 E'Medial: 8.38 E/E' Med: 12.40 E/E' Lat: 14.30 PHT: 64.00 MVA PHT: 3.44 Decel Parmer: 4.73 Aortic Valve AoV Pk Niall: 1.47 AoV Pk Grad: 9.00 SCOTT: 3.34 LVOT LVOT Pk Niall: 1.16 LVOT Mn Niall: 0.70 LVOT VTI: 0.23 LVOT Pk Grad: 5.00 LVOT Mn Grad: 2.00 LVOT Diam: 2.30 LVOT Area: 4.15 Diastolic Function MV Pk E: 1.04 MV Pk A: 1.09 E/A: 1.00 E'Medial: 8.38 E/E' Med: 12.40 E' Laterial: 7.29 E/E' Lat: 14.30 Right Ventricle TAPSE (mm): 21.20 TVS' Niall: 14.50 Tricuspid Valve TR Pk Niall: 2.55 TR Pk Grad: 26.00 RA Press: 8.00 RVSP: 34.00 Great Vessels Aorta Sinus of Valsalva: 3.60 2.0-3.5 cm Ao Asc: 3.10 2.1-3.4 cm Pulmonary Veins Pulm Vein S/D 1.10 Pulmonary Valve PV Pk Niall: 0.96 Peak PV Grad: 4.00 Updated in Other Vendor System with Status of Final Biju Boyer MD electronically signed on 02/13/2024 11:34:42 AM with status of Final
== END ==
LOC: HO.CARD 13:55
PROVIDERS: PCP Nurse Practitioner Family; Visit Provider Nurse Practitioner Family
DX: R09.89 Other specified symptoms and signs involving the circulatory and respiratory systems (principal); I65.23 Occlusion and stenosis of bilateral carotid arteries
CPT/HCPCS: 93306

== ENCOUNTER → 2024-02-12 13:58 | Outpatient (BNV) | payer OTHER, SELFPAY | PROVIDERS: PCP Nurse Practitioner Family; Visit Provider Internal Medicine Cardiovascular Disease | DX: I35.8 Other nonrheumatic aortic valve disorders (principal); I34.81 Nonrheumatic mitral (valve) annulus calcification; R93.1 Abnormal findings on diagnostic imaging of heart and coronary circulation | CPT/HCPCS: 93306 ==

== ENCOUNTER 2024-02-24 13:01 | Outpatient (AMB) | payer OTHER, SELFPAY ==
--- NOTE | 2024-02-24 13:07 | MHC.PC.OV ---
Vital Signs 02/24/24 13:14 02/24/24 13:32 Height 5 ft 8 in Weight 172 lb 4 oz BMI 26.2 BP 134/52 L 122/58 L Blood Pressure Location Rt brachial Lt brachial Position Sitting Sitting Respiration 16 Pulse 70 Pulse Source Pulse Oximeter Temp 98.2 F Temp Source Oral Pulse Oximetry (%) 98 Oxygen Delivery Method Room Air Intake Visit Reasons: 2 wks HTN Intake Note: patient here to 2 week follow up on HTN. [employer] Consultant Required: No Allergies No Known Allergies Allergy (Verified 02/24/24 13:28) Medication List - Last Reconciled 02/24/24 by Kathy Davenport CNP amlodipine 5 mg PO DAILY 30 days hydroxyzine HCl 10 mg PO QID PRN lisinopril 20 mg PO DAILY 30 days Tobacco use date assessed: 02/24/24 Fall risk assessment: No Falls in past year Last assessed Fall Risk: 02/24/24 Dental Screening Dental Screen Date: 02/24/24 Did you have a dental visit in the last 12 months?: Yes Did you have a dental problem in the last 6 months where you did not have access to dental care?: No Was dental information given to patient?: Patient has dentist HPI HPI Comments History of Present Illness Details 69-year-old male presents for hypertension follow-up He admits to taking his medications as prescribed without adverse reactions He offers no complaints and denies acute symptoms at this time [facility] Medical History (Updated 01/31/24 @ 11:30 by Kathy Davenport CNP) Carpal tunnel syndrome on both sides No pertinent past medical history Surgical History History of knee surgery History of arthroscopic surgery of shoulder Family History (Updated 01/28/24 @ 13:27 by Brittni Perea) Father Stomach cancer Social History Housing: House Alcohol intake: current Comment: Not too bad. I can tell somebodys been in there pt states Patient Tobacco Use Status: Former Tobacco user Cigarette Packs Per Day: 0.5 Cigarettes Per Day: 10 Years Smoked: 20 e-Cigarette/Vaping Use: Never Used Second Hand Smoke Exposure: No service: No Current occupational status: retired Current occupational exposures/hazards: No Cognitive needs: No Hearing needs: No Vision needs: No Questionnaire PHQ-9 Over the last 2 weeks, how often have you been bothered by any of the following problems? 1. Little interest or pleasure in doing things: not at all 2. Feeling down, depressed, or hopeless: not at all 3. Trouble falling or staying asleep, or sleeping too much: not at all 4. Feeling tired or having little energy: not at all 5. Poor appetite or overeating: not at all 6. Feeling bad about yourself - or that you are a failure or have let yourself or your family down: not at all 7. Trouble concentrating on things, such as reading the newspaper or watching television: not at all 8. Moving or speaking so slowly that other people could have noticed. Or the opposite - being so fidgety or restless that you have been moving around a lot more than usual: not at all 9. Thoughts that you would be better off or of hurting yourself in some way: not at all Total score: 0 27299 - PHQ-9 Billing: Yes Source: Developed by Drs. Tucker Gastelum, Christine Akins, Bart Walker and colleagues, with an educational wu from [email or web address]. Thrive Questionnaire Date Thrive assessed: 02/24/24 I am a: Patient What is your living situation today?: I have a steady place to live Within the past 12 months, did the food you bought not last and you didn't have the money to get more?: Never true Within the past 12 months, did you worry whether your food would run out before you got money to buy more?: Never true Do you have trouble paying for medicines?: No Do you have trouble getting transportation to medical appointments?: No Do you have trouble paying your heating and electricity bill?: No Do you have trouble with day-to-day activities such as bathing, preparing meals, shopping, managing finances, etc.?: No Are you currently unemployed and looking for a job?: No Please select the resources that you would like help with: None Currently or been in a relationship where the following occur: No concerns reported THRIVE Score: 0 AUDIT C Alcohol Use Questionnaire (AUDIT-C) 1. How often do you have a drink containing alcohol?: 2-4 times a month 2. How many drinks containing alcohol do you have on a typical day when you are drinking?: 3 or 4 3. How often do you have six or more drinks on one occasion?: Never Total Score: 3 SHANON-7 AMB Questionnaire SHANON-7 Date SHANON - 7 assessed: 01/28/24 Source: Developed by Drs. Tucker Gastelum, Christine Akins, Bart Walker and colleagues, with an educational wu from [email or web address]. Review of Systems Const Details: Const Denies chills, Denies fatigue, Denies fever(s), Denies headache(s) and Denies weakness ENT Denies dizziness and Denies headache(s) Card Denies chest pain, Denies lightheadedness, Denies dyspnea and Denies other (Palpitations) Resp Denies cough, Denies dyspnea, Denies wheezing and Denies other ( shortness of breath) GI Denies abdominal pain, Denies melena, Denies hematochezia, Denies change in bowel habits, Denies dyspepsia and Denies nausea Denies hematuria and Denies dysuria Musc Denies abnormal gait, Denies myalgias, Denies arthralgias, Denies numbness and Denies tingling Skin/Breast Denies rash, Denies unusual bruising and Denies wounds Neuro Denies abnormal gait, Denies dizziness, Denies headache(s), Denies memory loss, Denies numbness, Denies Sensory deficit (Neuro), Denies tingling and Denies weakness Psych Denies anxiety, Denies depression, Denies memory loss Endo Denies cold intolerance, Denies fatigue, Denies heat intolerance, Denies polydipsia and Denies polyuria Aller/Immun Denies wheezing Physical exam (Primary Care) Vital Signs: Last Vital Signs Temp 98.2 F 02/24/24 13:14 Pulse 70 02/24/24 13:14 Resp 16 02/24/24 13:14 BP 134/52 L 02/24/24 13:14 Pulse Ox 98 02/24/24 13:14 Oxygen Delivery Method Room Air 02/24/24 13:14 BMI result Body Mass Index 26.2 Tobacco/Smoking Status: Tobacco use Status Tobacco use date assessed 02/24/24 02/24/24 13:14 Patient Tobacco Use Status Former Tobacco user 02/24/24 13:10 e-Cigarette/Vaping Use Never Used 02/24/24 13:10 PHQ-9: PHQ-9 Score PHQ-9: Total score 0 02/24/24 13:14 Thrive Assessment: Date of Thrive Assessment Date Thrive assessed 02/24/24 02/24/24 13:14 Currently or been in a relationship where the following occur: No concerns reported Const Other: General: no acute distress and well developed Nutritional Appearance: well nourished Orientation/consciousness: patient oriented x3 [facility] Head: Yes normocephalic and Yes atraumatic Eyes General: appearance normal, both eyes and all related structures Pupils: Equal, round and reactive pupils present EOM: EOMs intact bilaterally Resp Effort & Inspection: normal respiratory effort Auscultation: clear to auscultation bilaterally Cardio Rate: regular rate Rhythm: regular rhythm Heart sounds: S1 normal heart sound present, S2 normal heart sound present, no gallops, no murmurs and no rubs GI Palpation (GI): No Abdominal aortic bruit present, Soft to palpation, nontender, No hepatosplenomegaly present and No Rebound tenderness present Auscultation: normal bowel sounds General: Yes no CVA tenderness Back/Spine/Pelvis Back: no CVA tenderness Cervical Spine: cervical ROM normal and No Cervical spine tenderness Thoracic/Lumbar Spine: thoraco-lumbar ROM normal, No pain with thoraco-lumbar ROM, No thoracic spinal tenderness and No lumbar spinal tenderness Extrem General: Yes normal to inspection, No edema and No calf tenderness Skin General: warm and dry. Normal skin color. Normal skin turgorl Neuro General: patient oriented x3, gait normal and no focal neuro deficit Cranial nerves: Yes Equal, round and reactive pupils present Cognition (Neuro): normal cognition Gait exam (Neuro): Normal gait present Sensory Exam: No Sensory deficit (Neuro) Psych Appearance: grossly normal Affect: normal affect Attitude: cooperative Thought process: Normal thought process present Assessment and Plan Assessment & Plan (1) Hypertension: Code(s): I10 - Essential (primary) hypertension Qualifiers: Hypertension type: primary hypertension Qualified Code(s): I10 - Essential (primary) hypertension Plan: Resting BP is 122/58, withing goal of less than 130/80 Continue current treatment regimen Low sodium diet encourage Recent bilateral carotid Doppler ultrasound and echocardiogram results reviewed with the patient; benign findings Follow up in 1 month or sooner with symptoms or concerns Verbalized understanding and agreed with the treatment plan Coding Level of Care Code Est Pt Level 4 (42016) Diagnoses Primary hypertension I10 Hypertension type: primary hypertension
[2024-02-24 13:14] VITALS: BP 134/52; PULSE 70; RESP 16; TEMP 36.8; O2SAT 98; BMI 26.2
[2024-02-24 13:32] VITALS: BP 122/58
== END 2024-02-24 13:44 | disposition home or self-care (01) ==
PROVIDERS: PCP Nurse Practitioner Family; Visit Provider Nurse Practitioner Family
DX: I10 Essential (primary) hypertension (principal)
CPT/HCPCS: 99214

== ENCOUNTER 2024-03-31 16:03 | Outpatient (AMB) | payer OTHER, SELFPAY ==
--- NOTE | 2024-03-31 15:57 | MHC.PC.OV ---
Vital Signs 03/31/24 16:06 Height 5 ft 8 in Weight 172 lb 6 oz BMI 26.2 BP 132/74 Blood Pressure Location Rt brachial Position Sitting Respiration 15 Pulse 70 Pulse Source Pulse Oximeter Pulse Oximetry (%) 98 Oxygen Delivery Method Room Air Intake Visit Reasons: F/U BP Intake Note: follow up on hypertension. Allergies No Known Allergies Allergy (Verified 03/31/24 16:08) Medication List - Last Reconciled 03/31/24 by Kathy Davenport CNP amlodipine 5 mg PO DAILY 30 days hydroxyzine HCl 10 mg PO QID PRN lisinopril 20 mg PO DAILY 30 days Tobacco use date assessed: 02/24/24 Dental Screening Dental Screen Date: 02/24/24 HPI HPI Comments History of Present Illness Details 69-year-old male presents for hypertension follow-up He admits to taking his medications as prescribed without adverse reactions He offers no complaints and denies acute symptoms at this time [facility] Medical History (Updated 01/31/24 @ 11:30 by Kathy Davenport CNP) Carpal tunnel syndrome on both sides No pertinent past medical history Surgical History History of knee surgery History of arthroscopic surgery of shoulder Family History (Updated 01/28/24 @ 13:27 by Brittni Perea) Father Stomach cancer Social History Housing: House Alcohol intake: current Comment: Not too bad. I can tell somebodys been in there pt states Patient Tobacco Use Status: Former Tobacco user Cigarette Packs Per Day: 0.5 Cigarettes Per Day: 10 Years Smoked: 20 e-Cigarette/Vaping Use: Never Used Second Hand Smoke Exposure: No service: No Current occupational status: retired Current occupational exposures/hazards: No Cognitive needs: No Hearing needs: No Vision needs: No Questionnaire Thrive Questionnaire Date Thrive assessed: 02/24/24 SHANON-7 AMB Questionnaire SHANON-7 Date SHANON - 7 assessed: 01/28/24 Source: Developed by Drs. Tucker Gastelum, Christine Akins, Bart Walker and colleagues, with an educational wu from [employer]. Review of Systems Const Details: Const Denies chills, Denies fatigue, Denies fever(s), Denies headache(s) and Denies weakness ENT Denies dizziness and Denies headache(s) Card Denies chest pain, Denies lightheadedness, Denies dyspnea and Denies other (Palpitations) Resp Denies cough, Denies dyspnea, Denies wheezing and Denies other ( shortness of breath) GI Denies abdominal pain, Denies melena, Denies hematochezia, Denies change in bowel habits, Denies dyspepsia and Denies nausea Denies hematuria and Denies dysuria Musc Denies abnormal gait, Denies myalgias, Denies arthralgias, Denies numbness and Denies tingling Skin/Breast Denies rash, Denies unusual bruising and Denies wounds Neuro Denies abnormal gait, Denies dizziness, Denies headache(s), Denies memory loss, Denies numbness, Denies Sensory deficit (Neuro), Denies tingling and Denies weakness Psych Denies anxiety, Denies depression, Denies memory loss Endo Denies cold intolerance, Denies fatigue, Denies heat intolerance, Denies polydipsia and Denies polyuria Aller/Immun Denies wheezing Physical exam (Primary Care) Vital Signs: Last Vital Signs Pulse 70 03/31/24 16:06 Resp 15 03/31/24 16:06 BP 132/74 03/31/24 16:06 Pulse Ox 98 03/31/24 16:06 Oxygen Delivery Method Room Air 03/31/24 16:06 BMI result Body Mass Index 26.2 Tobacco/Smoking Status: Tobacco use Status Tobacco use date assessed 02/24/24 03/31/24 15:59 Patient Tobacco Use Status Former Tobacco user 03/31/24 15:59 e-Cigarette/Vaping Use Never Used 03/31/24 15:59 Thrive Assessment: Date of Thrive Assessment Date Thrive assessed 02/24/24 03/31/24 15:59 Const Other: General: no acute distress and well developed Nutritional Appearance: well nourished Orientation/consciousness: patient oriented x3 HEN[facility] Head: Yes normocephalic and Yes atraumatic Eyes General: appearance normal, both eyes and all related structures Pupils: Equal, round and reactive pupils present EOM: EOMs intact bilaterally Resp Effort & Inspection: normal respiratory effort Auscultation: clear to auscultation bilaterally Cardio Rate: regular rate Rhythm: regular rhythm Heart sounds: S1 normal heart sound present, S2 normal heart sound present, no gallops, no murmurs and no rubs GI Palpation (GI): No Abdominal aortic bruit present, Soft to palpation, nontender, No hepatosplenomegaly present and No Rebound tenderness present Auscultation: normal bowel sounds General: Yes no CVA tenderness Back/Spine/Pelvis Back: no CVA tenderness Cervical Spine: cervical ROM normal and No Cervical spine tenderness Thoracic/Lumbar Spine: thoraco-lumbar ROM normal, No pain with thoraco-lumbar ROM, No thoracic spinal tenderness and No lumbar spinal tenderness Extrem General: Yes normal to inspection, No edema and No calf tenderness Skin General: warm and dry. Normal skin color. Normal skin turgor Neuro General: patient oriented x3, gait normal and no focal neuro deficit Cranial nerves: Yes Equal, round and reactive pupils present Cognition (Neuro): normal cognition Gait exam (Neuro): Normal gait present Sensory Exam: No Sensory deficit (Neuro) Psych Appearance: grossly normal Affect: normal affect Attitude: cooperative Thought process: Normal thought process present Assessment and Plan Assessment & Plan (1) Hypertension: Code(s): I10 - Essential (primary) hypertension Qualifiers: Hypertension type: primary hypertension Qualified Code(s): I10 - Essential (primary) hypertension Plan: Blood pressure today is 132/74, within goal of less than 140/90 Continue current treatment regimen Low-sodium diet encouraged Follow-up in 2 months or sooner with worsening or new symptoms Verbalized understanding and agreed with the treatment plan Medications: Refilled amlodipine 5 mg PO DAILY 30 tabs 3RF 30 days Coding Level of Care Code Est Pt Level 3 (08592) Diagnoses Primary hypertension I10 Hypertension type: primary hypertension
[2024-03-31 16:06] VITALS: BP 132/74; PULSE 70; RESP 15; O2SAT 98; BMI 26.2
== END 2024-03-31 16:15 | disposition home or self-care (01) ==
PROVIDERS: PCP Nurse Practitioner Family; Visit Provider Nurse Practitioner Family
DX: I10 Essential (primary) hypertension (principal)

== ENCOUNTER → 2024-03-31 16:03 | Outpatient (BNVA) | payer OTHER, SELFPAY | PROVIDERS: PCP Nurse Practitioner Family; Visit Provider Nurse Practitioner Family | DX: I10 Essential (primary) hypertension (principal) ==

== ENCOUNTER 2024-05-12 13:20 | Outpatient (REF) | payer MEDICARE, SELFPAY | END 2024-05-12 13:21 | disposition home or self-care (01) | LOC: HO.HOSX 13:20 | PROVIDERS: Visit Provider Orthopaedic Surgery | DX: M25.511 Pain in right shoulder (principal) | CPT/HCPCS: 73030 ==

== ENCOUNTER 2024-05-12 14:24 | Outpatient (AMB) | payer OTHER, SELFPAY ==
--- NOTE | 2024-05-12 14:32 | MHC.OFFVIS ---
Vital Signs 05/12/24 14:33 Height 5 ft 8 in Weight 175 lb BMI 26.6 Intake Visit Reasons: Right shoulder pain and weakness Intake Note: Raghav is a 69 year old male who presents with complaints of progressively worsening right shoulder pain and weakness. The patient describes his pain as sharp in nature. The patient did undergo right shoulder surgery approximately 15 years ago. That surgery was performed by another orthopedic surgeon. The patient states that he re-injured his right shoulder approximately 1 year ago while lifting a heavy object. Since that time his pain and weakness has gotten worse. He has failed the last 6 weeks of conservative treatment. His symptoms have gotten worse since his last visit with me on 12/18/2023. He has had multiple injections in the past. The most recent injection gave him minimal relief. Has also done physical therapy exercises which aggravated his pain. Has tried Tylenol and anti-inflammatory medicines as well as topical creams which gave him minimal relief. Allergies No Known Allergies Allergy (Verified 05/12/24 14:33) [facility] Medical History Carpal tunnel syndrome on both sides No pertinent past medical history Surgical History History of knee surgery History of arthroscopic surgery of shoulder Family History Father Stomach cancer Social History Housing: House Alcohol intake: current Comment: Not too bad. I can tell somebodys been in there pt states Patient Tobacco Use Status: Former Tobacco user Cigarette Packs Per Day: 0.5 Cigarettes Per Day: 10 Years Smoked: 20 e-Cigarette/Vaping Use: Never Used Second Hand Smoke Exposure: No service: No Current occupational status: retired Current occupational exposures/hazards: No Cognitive needs: No Hearing needs: No Vision needs: No Physical Exam Vital Signs: BMI result Body Mass Index 26.6 Const Other: Well-nourished well-developed very friendly male awake alert and oriented x3 in no acute distress Extrem Other: Bilateral upper extremity examination shows good capillary refill, no skin lesions noted, normal sensation light touch Right shoulder examination shows almost full range of motion when compared to his left shoulder, 4+ out of 5 strength with supraspinatus testing, positive impingement signs, tenderness over his acromioclavicular joint, no instability Results Reviewed Results Reviewed: X-rays of the patient's right shoulder show severe acromioclavicular joint narrowing, a type 2 acromion, no acute bony abnormalities Assessment & Plan Assessment & Plan (1) Rotator cuff insufficiency of right shoulder: Code(s): M25.311 - Other instability, right shoulder Category: Medical Plan Mr. Underwood presents with progressively worsening right shoulder pain and weakness most likely due to a full-thickness rotator cuff tear. I will send the patient for an MRI of his right shoulder for further evaluation. I will see him back once the MRI is completed to discuss the findings and treatment options. Feel free to call me at any time should questions regarding his orthopedic management arise. I spent 21 minutes in reviewing the patient's records and imaging studies, seeing the patient and documenting in the medical record. Orders: Orders XR shoulder RT min 2V 05/12/24 M25.511 - Pain in right shoulder MR shoulder RT wo con Today M25.311 - Other instability, right shoulder Coding Level of Care Code Est Pt Level 3 (84217) Complex EM visit Add On G2211 Diagnoses Rotator cuff insufficiency of right shoulder M25.311
[2024-05-12 14:33] VITALS: BMI 26.6
== END 2024-05-12 15:08 | disposition home or self-care (01) ==
LOC: HO.HOS 14:25
PROVIDERS: PCP Nurse Practitioner Family; Visit Provider Orthopaedic Surgery
DX: M25.311 Other instability, right shoulder (principal); M25.511 Pain in right shoulder
CPT/HCPCS: 99213; G2211

== ENCOUNTER 2024-06-04 09:55 | Outpatient (AMB) | payer MEDICARE, SELFPAY ==
--- NOTE | 2024-06-04 10:00 | MHC.PC.OV ---
Vital Signs 06/04/24 10:01 06/04/24 10:13 Height 5 ft 8 in Weight 171 lb BMI 26.0 BP 112/56 L 120/60 Blood Pressure Location Lt brachial Lt brachial Position Sitting Sitting Respiration 18 Pulse 76 Pulse Source Pulse Oximeter Temp 97.8 F Temp Source Oral Pulse Oximetry (%) 98 Oxygen Delivery Method Room Air Intake Visit Reasons: [id number] Intake Note: HTN f/u Allergies No Known Allergies Allergy (Verified 06/04/24 10:00) Tobacco use date assessed: 02/24/24 Dental Screening Dental Screen Date: 02/24/24 HPI HPI Comments History of Present Illness Details The patient is a 69-year-old male presenting with blood pressure management. The patient is currently on a regimen of amlodipine 5 mg daily and lisinopril 20 mg daily. He discusses that he has approximately 5 doses remaining of each medication and requests a refill sufficient for 90 days. The patient's blood pressure readings have been 120/60, which he acknowledges as a positive outcome from adherence to his current treatment plan. He denies any acute symptoms today, such as ankle swelling, and self-reports maintaining a healthy diet and exercise regimen, adhering to low sodium intake. [facility] Medical History Carpal tunnel syndrome on both sides No pertinent past medical history Surgical History History of knee surgery History of arthroscopic surgery of shoulder Family History Father Stomach cancer Social History Housing: House Alcohol intake: current Comment: Not too bad. I can tell somebodys been in there pt states Patient Tobacco Use Status: Former Tobacco user Cigarette Packs Per Day: 0.5 Cigarettes Per Day: 10 Years Smoked: 20 e-Cigarette/Vaping Use: Never Used Second Hand Smoke Exposure: No service: No Current occupational status: retired Current occupational exposures/hazards: No Cognitive needs: No Hearing needs: No Vision needs: No Questionnaire Thrive Questionnaire Date Thrive assessed: 02/24/24 SHANON-7 AMB Questionnaire SHANON-7 Date SHANON - 7 assessed: 01/28/24 Source: Developed by Drs. Tucker Gastelum, Christine Akins, Bart Walker and colleagues, with an educational wu from [employer]. Review of Systems Const Details: Const Denies chills, Denies fatigue, Denies fever(s), Denies headache(s) and Denies weakness ENT Denies dizziness and Denies headache(s) Card Denies chest pain, Denies lightheadedness, Denies dyspnea and Denies other (Palpitations) Resp Denies cough, Denies dyspnea, Denies wheezing and Denies other ( shortness of breath) GI Denies abdominal pain, Denies melena, Denies hematochezia, Denies change in bowel habits, Denies dyspepsia and Denies nausea Denies hematuria and Denies dysuria Musc Denies abnormal gait, Denies myalgias, Denies arthralgias, Denies numbness and Denies tingling Skin/Breast Denies rash, Denies unusual bruising and Denies wounds Neuro Denies abnormal gait, Denies dizziness, Denies headache(s), Denies memory loss, Denies numbness, Denies Sensory deficit (Neuro), Denies tingling and Denies weakness Psych Denies anxiety, Denies depression, Denies memory loss Endo Denies cold intolerance, Denies fatigue, Denies heat intolerance, Denies polydipsia and Denies polyuria Aller/Immun Denies wheezing Physical exam (Primary Care) Vital Signs: Last Vital Signs Temp 97.8 F 06/04/24 10:01 Pulse 76 06/04/24 10:01 Resp 18 06/04/24 10:01 BP 112/56 L 06/04/24 10:01 Pulse Ox 98 06/04/24 10:01 Oxygen Delivery Method Room Air 06/04/24 10:01 BMI result Body Mass Index 26.0 Tobacco/Smoking Status: Tobacco use Status Tobacco use date assessed 02/24/24 06/04/24 10:04 Patient Tobacco Use Status Former Tobacco user 06/04/24 10:04 e-Cigarette/Vaping Use Never Used 06/04/24 10:04 Thrive Assessment: Date of Thrive Assessment Date Thrive assessed 02/24/24 06/04/24 10:04 Const Other: General: no acute distress and well developed Nutritional Appearance: well nourished Orientation/consciousness: patient oriented x3 HENMT Head: Yes normocephalic and Yes atraumatic Eyes General: appearance normal, both eyes and all related structures Pupils: Equal, round and reactive pupils present EOM: EOMs intact bilaterally Resp Effort & Inspection: normal respiratory effort Auscultation: clear to auscultation bilaterally Cardio Rate: regular rate Rhythm: regular rhythm Heart sounds: S1 normal heart sound present, S2 normal heart sound present, no gallops, no murmurs and no rubs GI Palpation (GI): No Abdominal aortic bruit present, Soft to palpation, nontender, No hepatosplenomegaly present and No Rebound tenderness present Auscultation: normal bowel sounds General: Yes no CVA tenderness Back/Spine/Pelvis Back: no CVA tenderness Extrem General: Yes normal to inspection, No edema and No calf tenderness Skin General: warm and dry. Normal skin color. Normal skin turgor Neuro General: patient oriented x3, gait normal and no focal neuro deficit Cranial nerves: Yes Equal, round and reactive pupils present Cognition (Neuro): normal cognition Gait exam (Neuro): Normal gait present Sensory Exam: No Sensory deficit (Neuro) Psych Appearance: grossly normal Affect: normal affect Attitude: cooperative Thought process: Normal thought process present Coding Level of Care Code Est Pt Level 3 (49756) Diagnoses Primary hypertension I10 Hypertension type: primary hypertension Assessment & Plan Assessment & Plan (1) Hypertension: Code(s): I10 - Essential (primary) hypertension Category: Medical Qualifiers: Hypertension type: primary hypertension Qualified Code(s): I10 - Essential (primary) hypertension Plan: - Continue current medications: amlodipine 5 mg daily and lisinopril 20 mg daily. - Adjust prescription to a 90-day supply, pending any insurance coverage issues. - Scheduled follow-up in three months to reassess blood pressure control. - Continue monitoring dietary intake and exercise habits. I reviewed with the patient the importance of maintaining his current antihypertensive regimen. We discussed that his blood pressure is at an optimal level of 120/60 mmHg and the importance of adhering to a low sodium diet and regular exercise. The patient is compliant with his medication, and I discussed the potential for a 90-day medication supply which would be more convenient for him. The importance of taking medications as prescribed was emphasized. Follow-up was agreed upon in three months unless any changes or complications arise. I reviewed with the patient the importance of maintaining his current antihypertensive regimen. We discussed that his blood pressure is at an optimal level of 120/60 mmHg and the importance of adhering to a low sodium diet and regular exercise. The patient is compliant with his medication, and I discussed the potential for a 90-day medication supply which would be more convenient for him. The importance of taking medications as prescribed was emphasized. Follow-up was agreed upon in three months unless any changes or complications arise. Patient was informed and verbally consented to the use of an ambient scribe for clinic note documentation during this visit. Medications: Changed From amlodipine 5 mg PO DAILY 30 days 30 tabs 3RF To amlodipine 5 mg PO DAILY 90 tabs 1RF 90 days From lisinopril 20 mg PO DAILY 30 days 30 tabs 3RF To lisinopril 20 mg PO DAILY 90 days 90 tabs 1RF
[2024-06-04 10:01] VITALS: BP 112/56; PULSE 76; RESP 18; TEMP 36.6; O2SAT 98; BMI 26.0
[2024-06-04 10:13] VITALS: BP 120/60
== END 2024-06-04 10:17 | disposition home or self-care (01) ==
PROVIDERS: PCP Nurse Practitioner Family; Visit Provider Nurse Practitioner Family
DX: I10 Essential (primary) hypertension (principal)

== ENCOUNTER → 2024-06-04 09:55 | Outpatient (BNVA) | payer MEDICARE, SELFPAY | PROVIDERS: PCP Nurse Practitioner Family; Visit Provider Nurse Practitioner Family | DX: I10 Essential (primary) hypertension (principal) | CPT/HCPCS: 99212 ==

== ENCOUNTER 2024-06-23 06:30 | Day surgery (SDC) | payer MEDICARE, SELFPAY ==
[2024-06-19 08:37] VITALS: BMI 27.4
--- NOTE | 2024-06-22 09:41 | P.CONAN_ITS ---
Documented by User: Sindy Ruano NP 06/22/24 09:42 HPI - Anesthesia Eval Consult details Narrative: 69yo M for Colonoscopy PMFSH Active Problems Active Problems: All Active Problems Rotator cuff insufficiency of right shoulder (Acute) Right shoulder pain (Acute) Anxiety about health (Acute) Bilateral carotid bruits (Acute) Arthritis of right knee (Acute) Stiffness of hand joint (Acute) Numbness of left hand (Acute) Carpal tunnel syndrome of right wrist (Acute) Right-sided epistaxis (Acute) Hand numbness (Acute) Swelling of both hands (Acute) Paresthesia of both hands (Acute) H/O arthroscopy of right knee (Acute) Pain in right hand (Acute) Preop examination (Acute) Tear of medial meniscus of right knee (Acute) Hypertension (Acute) Encounter for screening colonoscopy (Acute) Right knee injury (Acute) Elevated BP without diagnosis of hypertension (Acute) Hypercholesterolemia (Acute) Elevated fasting glucose (Acute) Vaccine counseling (Acute) Laboratory tests ordered as part of a complete physical exam (CPE) (Acute) Colon cancer screening (Acute) Blurry vision, right eye (Acute) Normal physical examination, routine (Acute) Carpal tunnel syndrome on both sides (Acute) Past Medical History Medical History (Updated 06/23/24 @ 06:50 by Georgiana Sharpe RN) Cataract of right eye Carpal tunnel syndrome on both sides Family History Family History Father Stomach cancer Family history of problems with anesthesia: No Surgical History Surgical History (Updated 06/23/24 @ 06:50 by Georgiana Sharpe RN) Hx of appendectomy History of knee surgery History of arthroscopic surgery of shoulder History of Problems with Anesthesia: No Social History Social History Housing: House Alcohol intake: current Comment: Not too bad. I can tell somebodys been in there pt states Patient Tobacco Use Status: Former Tobacco user Cigarette Packs Per Day: 0.5 Cigarettes Per Day: 10 Years Smoked: 20 e-Cigarette/Vaping Use: Never Used Second Hand Smoke Exposure: No Use of substances other than those prescribed or required for medical reasons: No Advance Directives: No Advance Directives Information Provided: Yes Recently lost weight without trying: No Nutrition Risks: No Nutritional Risk Poor oral hygiene: No service: No Current occupational status: retired Current occupational exposures/hazards: No Cognitive needs: No Hearing needs: No Vision needs: No Meds Allergies Allergy/AdvReac Type Severity Reaction Status Date / Time No Known Allergies Allergy Verified 06/04/24 10:00 Exam Height,Weight and Vital Signs: Height 5 ft 8 in Weight 81.647 kg Assessment and Plan Assessment Anesthesia Assessment: Chart Reviewed Final Anesthetic Review Family History of Problems with Anesthesia: No History of Problems with Anesthesia: No Documented by User: Sami Dominguez MD 06/23/24 07:44 [facility] Past Medical History Medical History (Updated 06/23/24 @ 06:50 by Georgiana Sharpe RN) Cataract of right eye Carpal tunnel syndrome on both sides Family History Family History Father Stomach cancer Surgical History Surgical History (Updated 06/23/24 @ 06:50 by Georgiana Sharpe RN) Hx of appendectomy History of knee surgery History of arthroscopic surgery of shoulder Social History Social History Housing: House Alcohol intake: current Comment: Not too bad. I can tell somebodys been in there pt states Patient Tobacco Use Status: Former Tobacco user Cigarette Packs Per Day: 0.5 Cigarettes Per Day: 10 Years Smoked: 20 e-Cigarette/Vaping Use: Never Used Second Hand Smoke Exposure: No Use of substances other than those prescribed or required for medical reasons: No Advance Directives: No Advance Directives Information Provided: Yes Recently lost weight without trying: No Nutrition Risks: No Nutritional Risk Poor oral hygiene: No service: No Current occupational status: retired Current occupational exposures/hazards: No Cognitive needs: No Hearing needs: No Vision needs: No Meds Allergies Allergy/AdvReac Type Severity Reaction Status Date / Time No Known Allergies Allergy Verified 06/04/24 10:00 Exam Airway Mallampati Class: II TM Dist: <=3cm Neck ROM: Full Loose/Missing/Broken Teeth: No Heart: ok Lungs: ok Assessment and Plan Assessment Anesthesia Assessment: Anesthesia Plan Discussed Final Anesthetic Review NPO: Yes ASA Class: II Final Preanesthetic Review: No Changes in Pt Med Stat, Meds/Allgs Chart Reviewed, Consent Obtained/Reviewed and Anes Risks/Benef Reviewed Patient Risk: Intermediate Procedure Risk: Low Anesthetic Plan Anesthetic Plan: MAC: and Agree w/ Assess. and Plan Disposition: Standard PACU
[2024-06-23 06:54] VITALS: BMI 25.7
[2024-06-23 07:05] VITALS: BP 144/64; PULSE 62; RESP 16; TEMP 36.3; O2SAT 99
[2024-06-23] MEDS: Lactated Ringers 1,000 ML 100 ML IVCONT (07:11)
--- NOTE | 2024-06-23 07:59 | MHC.SHP ---
Pre-Procedural Eval Section A - 24 Hr Update-Section A only Date of Service: 06/23/24 Section B - Complete if H&P > 30 days Chief Complaint: screening Details of Present Illness: fam hx of stomach ca Relevant Family History (Specify if Yes): Yes Present Medications: see Short Stay Collaborative assessment Medical History: No relevant PMH History of Previous Operations: No relevant previous surgery Allergies: Allergies Allergy/AdvReac Type Severity Reaction Status Date / Time No Known Allergies Allergy Verified 06/04/24 10:00 Review of Systems Review of Systems Comment: Ten point ROS negative Exam Exam Comment: Gen appear: No acute distress HEENT: no icterus Chest: No overt resp distress Abd: soft, nontender, nondistended Psych: Stable affect, answering questions appropriately Neuro: A/Ox3 noted to move all extremities spontaneously Ext: no peripheral edema Plan Diagnosis/Plan: Unchanged I have reviewed the history and physical and performed a pertinent physical examination on my patient. No changes have occurred unless specified. Time Spent With Patient Time: Total time managing care of this patient today ____ minutes.
[2024-06-23 08:35] VITALS: BP 95/63; PULSE 56; RESP 16; TEMP 36.2; O2SAT 95
--- NOTE | 2024-06-23 08:36 | P.OPN-COLO_ITS ---
Colonoscopy Operative Note Operative Note Date of Service: 06/23/24 Narrative: Procedure: Colonoscopy Indication: Screening Endoscopist: Ashely Briseno MD Anesthesia Provider: Dr Sami Dominguez Anesthesia type: MAC Instrument: Olympus [id number]-H190L Consent: Indication, risks vs benefits, and alternatives were discussed with the patient who gave written informed consent to proceed. EKG, pulse, pulse oximetry and blood pressure were monitored throughout the procedure. Please see anesthesia flowsheet. Procedure: The patient was brought to the procedure room and placed in the left lateral decubitus position. IV medications were administered by the anesthesia provider in attendance. A digital rectal exam was performed which was abnormal due to finding of hemorrhoids. A distal attachment cap was affixed to the tip of the colonoscope which was then inserted through the anus and advanced through the colon to the cecum at 85 cm. Appendiceal orifice and ileocecal valve were identified. Mucosa was carefully examined under high definition white light as the instrument was slowly withdrawn in a retrograde panoramic fashion. Retroflexion was performed in rectum. The procedure was somewhat difficult and required pressure to intubate the cecum. There were no immediate obvious complications. The quality of the prep was BBPS: 3+2+3 = adequate Withdrawal time 11 minutes. Limitations: No limitations. Findings: Mucosa: Normal to cecum. Protruding lesions: * 1 sessile polyp of size 8 mm in descending colon. Cold snare polypectomy was performed. The polyp was completely removed and retrieved. * Large internal hemorrhoids with stigmata of recent bleeding. Excavated lesions: * Severe diverticulosis of whole colon L>R. Impression: 1. Normal colon mucosa 2. Total of 1 polyp removed 3. External and internal hemorrhoids 4. Diverticulosis Recommendations: - Follow path results. - Repeat colonoscopy in 7 years if polyps is an adenoma, 5 years if sessile serrated.
[2024-06-23 08:51] VITALS: BP 115/52; PULSE 59; RESP 17; TEMP 36.2; O2SAT 99
== END 2024-06-23 09:44 | disposition home or self-care (01) ==
PROVIDERS: PCP Nurse Practitioner Family; Visit Provider Internal Medicine
PROC: 0DJD8ZZ Inspection of Lower Intestinal Tract, Via Natural or Artificial Opening Endoscopic (ICD-10-PCS; CPT 45378; principal; 2024-06-23 07:40)
DX: Z12.11 Encounter for screening for malignant neoplasm of colon (principal); D12.4 Benign neoplasm of descending colon; K57.30 Diverticulosis of large intestine without perforation or abscess without bleeding; K64.8 Other hemorrhoids; K64.4 Residual hemorrhoidal skin tags; Z80.0 Family history of malignant neoplasm of digestive organs; Z87.828 Personal history of other (healed) physical injury and trauma; Z98.890 Other specified postprocedural states; Z87.891 Personal history of nicotine dependence
CPT/HCPCS: 45385; 88305; J2003; J2704; J3010

== ENCOUNTER → 2024-06-23 06:30 | Outpatient (BNV) | payer MEDICARE, SELFPAY | PROVIDERS: PCP Nurse Practitioner Family; Visit Provider Internal Medicine | DX: Z12.11 Encounter for screening for malignant neoplasm of colon (principal); D12.4 Benign neoplasm of descending colon; K57.90 Diverticulosis of intestine, part unspecified, without perforation or abscess without bleeding; K64.8 Other hemorrhoids | CPT/HCPCS: 45385 ==

== ENCOUNTER 2024-07-06 13:22 | Outpatient (REF) | payer MEDICARE, SELFPAY ==
--- NOTE | ~2024-07-06 | MR_ITS ---
EXAMINATION: MR SHOULDER WITHOUT CONTRAST RIGHT CLINICAL INFORMATION: Other instability, right shoulder M25.311. Status post using crutches developed right shoulder and biceps pain. COMPARISON: XR right shoulder 05/12/2024. TECHNIQUE: MRI of the shoulder without contrast was performed on a high-field scanner. FINDINGS: ROTATOR CUFF: Moderate supraspinatus tendinosis with anterior bursal surface and intrasubstance fraying/partial tearing measuring up to 1.3 cm in ML dimension. No full-thickness rotator cuff tendon tear. No muscle atrophy or fatty infiltration. BICEPS: Intact. CORACOACROMIAL ARCH: The undersurface of the acromion is flat with no subacromial spur. Severe acromioclavicular osteoarthritis with a joint effusion. Small amount of fluid within the subacromial-subdeltoid bursa, consistent with mild bursitis. LABRUM/CAPSULE: Diffuse degenerative tearing throughout the labrum. Additional nondisplaced undersurface tearing of the anterior and anteroinferior labrum. Intact inferior joint capsule. GLENOHUMERAL JOINT/MARROW: Chronic posterior subluxation of the humeral head with posterior glenoid bony remodeling, subchondral cystic change, and marrow edema. Diffuse articular cartilage thinning with broad areas of full-thickness loss at the humeral head and glenoid. No acute fracture or dislocation. Small glenohumeral joint effusion. MR/MR shoulder RT wo con IMPRESSION: 1. Moderate supraspinatus tendinosis with anterior bursal surface and intrasubstance fraying/partial tearing measuring 1.3 cm in ML dimension. No full-thickness rotator cuff tendon tear. 2. Severe acromioclavicular osteoarthritis with a joint effusion. Mild subacromial-subdeltoid bursitis. 3. Diffuse degenerative tearing throughout the labrum. Additional nondisplaced undersurface tearing of the anterior and anteroinferior labrum. 4. Chronic posterior subluxation of the humeral head with posterior glenoid bony remodeling, subchondral cystic change, and marrow edema. Severe glenohumeral osteoarthritis. Small joint effusion. Electronically signed by: Srikanth Joya MD 07/07/2024 11:38 AM [facility] [place]
== END 2024-07-06 13:23 | disposition home or self-care (01) ==
LOC: HO.MRI 13:22
PROVIDERS: PCP Nurse Practitioner Family; Visit Provider Orthopaedic Surgery
DX: M25.311 Other instability, right shoulder (principal)
CPT/HCPCS: 73221

== ENCOUNTER 2024-07-17 15:03 | Outpatient (AMB) | payer MEDICARE, SELFPAY ==
--- NOTE | 2024-07-17 15:09 | A.OFFPC_ITS ---
Vital Signs 07/17/24 15:15 Height 5 ft 8 in Weight 172 lb 2 oz BMI 26.2 BP 112/58 L Blood Pressure Location Lt brachial Position Sitting Respiration 16 Pulse 68 Pulse Source Pulse Oximeter Temp 98.1 F Temp Source Oral Pulse Oximetry (%) 98 Oxygen Delivery Method Room Air Intake Visit Reasons: colonoscopy results Intake Note: patient here to follow up on colonoscopy results [employer] Required: No Allergies No Known Allergies Allergy (Verified 07/17/24 15:21) Medication List - Last Reconciled 07/17/24 by Kathy Davenport CNP amlodipine 5 mg PO DAILY 90 days lisinopril 20 mg PO DAILY 90 days Tobacco use date assessed: 07/17/24 Fall risk assessment: No Falls in past year Last assessed Fall Risk: 07/17/24 Dental Screening Dental Screen Date: 07/17/24 Did you have a dental visit in the last 12 months?: Yes Did you have a dental problem in the last 6 months where you did not have access to dental care?: No Was dental information given to patient?: Patient has dentist HPI HPI Comments History of Present Illness Details 69-year-old male presents with requests to review his recent colonoscopy results. He admits to taking his medications as prescribed without adverse reactions. He offers no complaints and denies acute symptoms at this time. [facility] Medical History (Updated 07/17/24 @ 15:20 by Kathy Davenport CNP) Cataract of right eye Carpal tunnel syndrome on both sides Surgical History (Updated 06/23/24 @ 06:50 by Georgiana Sharpe RN) Hx of appendectomy History of knee surgery History of arthroscopic surgery of shoulder Family History Father Stomach cancer Social History Housing: House Alcohol intake: current Comment: Not too bad. I can tell somebodys been in there pt states Patient Tobacco Use Status: Former Tobacco user Cigarette Packs Per Day: 0.5 Cigarettes Per Day: 10 Years Smoked: 20 e-Cigarette/Vaping Use: Never Used Second Hand Smoke Exposure: No service: No Current occupational status: retired Current occupational exposures/hazards: No Cognitive needs: No Hearing needs: No Vision needs: No Questionnaire Thrive Questionnaire Date Thrive assessed: 02/24/24 SHANON-7 AMB Questionnaire SHANON-7 Date SHANON - 7 assessed: 01/28/24 Source: Developed by Drs. Tucker Gastelum, Christine Akins, Bart Walker and colleagues, with an educational wu from [employer]. Review of Systems Const Details: Const Denies chills, Denies fatigue, Denies fever(s), Denies headache(s) and Denies weakness ENT Denies dizziness and Denies headache(s) Card Denies chest pain, Denies lightheadedness, Denies dyspnea and Denies other (Palpitations) Resp Denies cough, Denies dyspnea, Denies wheezing and Denies other ( shortness of breath) GI Denies abdominal pain, Denies melena, Denies hematochezia, Denies change in bowel habits, Denies dyspepsia and Denies nausea Denies hematuria and Denies dysuria Musc Denies abnormal gait, Denies myalgias, Denies arthralgias, Denies numbness and Denies tingling Skin/Breast Denies rash, Denies unusual bruising and Denies wounds Neuro Denies abnormal gait, Denies dizziness, Denies headache(s), Denies memory loss, Denies numbness, Denies Sensory deficit (Neuro), Denies tingling and Denies weakness Psych Denies anxiety, Denies depression, Denies memory loss Endo Denies cold intolerance, Denies fatigue, Denies heat intolerance, Denies polydipsia and Denies polyuria Aller/Immun Denies wheezing Physical exam (Primary Care) Tobacco/Smoking Status: Tobacco use Status Tobacco use date assessed 02/24/24 07/17/24 15:11 Patient Tobacco Use Status Former Tobacco user 07/17/24 15:11 e-Cigarette/Vaping Use Never Used 07/17/24 15:11 Thrive Assessment: Date of Thrive Assessment Date Thrive assessed 02/24/24 07/17/24 15:11 Const Other: General: no acute distress and well developed Nutritional Appearance: well nourished Orientation/consciousness: patient oriented x3 HENMT Head: Yes normocephalic and Yes atraumatic Eyes General: appearance normal, both eyes and all related structures Pupils: Equal, round and reactive pupils present EOM: EOMs intact bilaterally Resp Effort & Inspection: normal respiratory effort Auscultation: clear to auscultation bilaterally Cardio Rate: regular rate Rhythm: regular rhythm Heart sounds: S1 normal heart sound present, S2 normal heart sound present, no gallops, no murmurs and no rubs GI Palpation (GI): No Abdominal aortic bruit present, Soft to palpation, nontender, No hepatosplenomegaly present and No Rebound tenderness present Auscultation: normal bowel sounds General: Yes no CVA tenderness Back/Spine/Pelvis Back: no CVA tenderness Cervical Spine: cervical ROM normal and No Cervical spine tenderness Thoracic/Lumbar Spine: thoraco-lumbar ROM normal, No pain with thoraco-lumbar ROM, No thoracic spinal tenderness and No lumbar spinal tenderness Extrem General: Yes normal to inspection, No edema and No calf tenderness Skin General: warm and dry. Normal skin color. Normal skin turgor Neuro General: patient oriented x3, gait normal and no focal neuro deficit Cranial nerves: Yes Equal, round and reactive pupils present Cognition (Neuro): normal cognition Gait exam (Neuro): Normal gait present Sensory Exam: No Sensory deficit (Neuro) Psych Appearance: grossly normal Affect: normal affect Attitude: cooperative Thought process: Normal thought process present Coding Level of Care Code Est Pt Level 3 (73526) Diagnoses Tubular adenoma of colon D12.6 Primary hypertension I10 Hypertension type: primary hypertension Assessment & Plan Assessment & Plan (1) Tubular adenoma of colon: Code(s): D12.6 - Benign neoplasm of colon, unspecified Category: Medical Plan: He had colonoscopy done on 06/23/2024. Pathology report on 06/24/2024 revealed the following: Colon, descending, polyp: Tubular adenoma; negative for high-grade dysplasia and carcinoma [facility] [facility] plan is for him to follow-up for colonoscopy in 7 years. (2) Hypertension: Code(s): I10 - Essential (primary) hypertension Category: Medical Qualifiers: Hypertension type: primary hypertension Qualified Code(s): I10 - Essential (primary) hypertension Plan: Blood pressure is 112/58, within goal of less than 140/90. Continue current treatment regimen. He has a follow-up appointment in late August. Return sooner with symptoms or concerns. Verbalized understanding and agreed with treatment plan.
[2024-07-17 15:15] VITALS: BP 112/58; PULSE 68; RESP 16; TEMP 36.7; O2SAT 98; BMI 26.2
== END 2024-07-17 15:37 | disposition home or self-care (01) ==
PROVIDERS: PCP Nurse Practitioner Family; Visit Provider Nurse Practitioner Family
DX: D12.6 Benign neoplasm of colon, unspecified (principal); I10 Essential (primary) hypertension

== ENCOUNTER 2024-08-12 13:00 | Outpatient (AMB) | payer MEDICARE, SELFPAY ==
[2024-08-12 13:01] VITALS: BMI 28.6
--- NOTE | 2024-08-12 13:01 | MHC.OFFVIS ---
Vital Signs 08/12/24 13:01 Height 5 ft 5 in Weight 172 lb 2 oz BMI 28.6 Intake Visit Reasons: OV- Right shoulder MRI review Intake Note: Raghav is a 69 year old male who presents with complaints of progressively worsening right shoulder pain and stiffness. The patient describes his pain as sharp in nature. The patient did undergo right shoulder surgery approximately 15 years ago. That surgery was performed by another orthopedic surgeon. The patient states that he re-injured his right shoulder approximately 1 year ago while lifting a heavy object. Since that time his pain and weakness has gotten worse. He has failed the last 6 weeks of conservative treatment. His symptoms have gotten worse since his last visit with me on 12/18/2023. He has had multiple injections in the past. The most recent injection gave him minimal relief. Has also done physical therapy exercises which aggravated his pain. Has tried Tylenol and anti-inflammatory medicines as well as topical creams which gave him minimal relief. Allergies No Known Allergies Allergy (Verified 08/12/24 13:02) Medication List - Last Reconciled 08/12/24 by Abdirashid Acevedo MD amlodipine 5 mg PO DAILY 90 days lisinopril 20 mg PO DAILY 90 days [facility] Medical History Cataract of right eye Carpal tunnel syndrome on both sides Surgical History Hx of appendectomy History of knee surgery History of arthroscopic surgery of shoulder Family History Father Stomach cancer Social History Housing: House Alcohol intake: current Comment: Not too bad. I can tell somebodys been in there pt states Patient Tobacco Use Status: Former Tobacco user Cigarette Packs Per Day: 0.5 Cigarettes Per Day: 10 Years Smoked: 20 e-Cigarette/Vaping Use: Never Used Second Hand Smoke Exposure: No service: No Current occupational status: retired Current occupational exposures/hazards: No Cognitive needs: No Hearing needs: No Vision needs: No Physical Exam Vital Signs: BMI result Body Mass Index 28.6 Const Other: Well-nourished well-developed very friendly male awake alert and oriented x3 in no acute distress Extrem Other: Right shoulder examination shows decreased range of motion when compared to his left shoulder, 5/5 strength with supraspinatus testing, positive impingement signs, tenderness over his acromioclavicular joint, no instability Results Reviewed Results Reviewed: MRI of the patient's right shoulder shows moderate glenohumeral joint degenerative changes, severe acromioclavicular joint narrowing, signal change within the supraspinatus tendon most likely due to adhesive capsulitis, a type 2 acromion Assessment & Plan Assessment & Plan (1) Impingement of right shoulder: Code(s): M25.811 - Other specified joint disorders, right shoulder Category: Medical Plan Mr. Underwood presents with progressively worsening right shoulder pain and stiffness due to impingement syndrome, acromioclavicular joint arthritis, glenohumeral joint arthritis and adhesive capsulitis. I had a lengthy discussion with the patient regarding treatment options. At this point he appears to be failing continued non operative treatments. He is considering undergoing right shoulder surgery later this year. He will contact my office to pick a surgery date if he chooses to do so. Surgery will most likely involve right shoulder diagnostic arthroscopy with distal clavicle excision, acromioplasty, capsular release and manipulation under anesthesia. Will continue with his range of motion exercises in the meantime. Feel free to call me at any time should questions regarding his orthopedic management arise. I spent 22 minutes in reviewing the patient's records and imaging studies, seeing the patient and documenting in the medical record. Coding Level of Care Code Est Pt Level 3 (76898) Complex EM visit Add On G2211 Diagnoses Impingement of right shoulder M25.811
--- OUTSIDE RECORDS SUMMARY | 2024-08-12 15:08 | XMS_ITS | Patient Health Record ---
Author Organization [facility] Address [address] [address] Care Team Providers Care Loader Demolder Name Role Phone BEULAH DUMONT Primary Care Provider [phone] Allergies No Known Allergies Reason For Referral No Information Immunizations Vaccine Route Administration Date Status Comme nts COVID-19 #3 age 12+ IM Intramuscular 07/13/2021 Administer ed Social History Tobacco Use: Social History Observation Description Date Details (start date - stop date) Former Smoker NA - NA Smoking Question Answer Notes Are you a: former smoker 05/17/21- smoked cigars in the past. Quit about 5 years ago Problems Problem Type SNOMED Code ICD Code Onset Dates Problem Status W/U Status Risk Notes Problem Lumbar sprain (457120976) Sprain of ligaments of lumbar spine, initial encounter (S33.5XXA) Active confirmed Problem Lumbosacral spondylosis without myelopathy (disorder) (94622572) Spondylosis without myelopathy or radiculopathy, lumbosacral region (M47.817) Active confirmed Plan Of Treatment Pending Test Test Name Order Date Q-PSA, TOTAL 11/16/2009 Q-COMPREHENSIVE METABOLIC$PANEL W/EGFR 0 11/16/2009 Q-COMPREHENSIVE METABOLIC$PANEL W/EGFR 0 10/30/2011 Q-HEPATITIS PANEL, ACUTE W/REFLEX 2013 Q-LIPID PANEL WITH REFLEX TO DIRECT LDL 10/30/2011 Q-LIPID PANEL WITH REFLEX TO DIRECT LDL 11/16/2009 Lipid Panel With LDL/HDL Ratio 4 Lipid Panel With LDL/HDL Ratio 6 Comp. Metabolic Panel (14) 11/28/2015 Comp. Metabolic Panel (14) 01/21/2014 Hepatitis Panel (4) 01/21/2014 Future Test Test Name Order Date MRI : Shoulder, right 02/07/2009 CT Scan : Head, with contrast 04/14/2015 X ray : Foot, right 02/15/2017 X ray : Elbow, right 02/26/2019 Insurance Providers Payer Name Payer Address Payer Phone Subscriber Number Group Number Insured Name Patient Relationship to Insured Coverage Start Date Coverage End Date [facility] [address] [address] [place] [phone] [id number] CHITO DE LA ROSA Self - patient is the insured 7 Medical (General) History Medical History History ICD Code lumbar dic disease Surgical History Surgery Date(Month/Year) left arm rotator cuff tear repair orthroscopic knee surgery colonoscopy- 2012 tonsillectomy
== END 2024-08-12 13:40 | disposition home or self-care (01) ==
PROVIDERS: PCP Nurse Practitioner Family; Visit Provider Orthopaedic Surgery
DX: M75.41 Impingement syndrome of right shoulder (principal); M19.011 Primary osteoarthritis, right shoulder; M25.811 Other specified joint disorders, right shoulder
CPT/HCPCS: 99213

== ENCOUNTER → 2024-08-12 13:00 | Outpatient (BNVA) | payer MEDICARE, SELFPAY | PROVIDERS: PCP Nurse Practitioner Family; Visit Provider Orthopaedic Surgery | DX: M25.811 Other specified joint disorders, right shoulder (principal) | CPT/HCPCS: 99212 ==

== ENCOUNTER 2024-09-04 15:02 | Outpatient (AMB) | payer MEDICARE, SELFPAY ==
--- NOTE | 2024-09-04 15:04 | A.OFFPC_ITS ---
Vital Signs 09/04/24 15:08 09/04/24 15:21 09/04/24 15:42 09/04/24 15:48 Height 5 ft 8 in Weight 172 lb BMI 26.1 BP 118/57 L 128/60 134/60 116/60 Blood Pressure Location Rt brachial Lt brachial Lt brachial Lt brachial Position Sitting Supine Sitting Standing Respiration 16 Pulse 73 68 72 72 Pulse Source Pulse Oximeter Palpation Palpation Palpation Temp 98.3 F Temp Source Oral Pulse Oximetry (%) 97 Oxygen Delivery Method Room Air Intake Visit Reasons: 3 mos HTN Intake Note: patient here for 3 month follow up for HTN Occupational Therapist Per Diem Required: No Allergies No Known Allergies Allergy (Verified 09/04/24 15:19) Medication List - Last Reconciled 09/04/24 by Kathy Davenport CNP amlodipine 5 mg PO DAILY 90 days lisinopril 20 mg PO DAILY 90 days Tobacco use date assessed: 09/04/24 Fall risk assessment: No Falls in past year Last assessed Fall Risk: 09/04/24 Dental Screening Dental Screen Date: 09/04/24 Did you have a dental visit in the last 12 months?: Yes Did you have a dental problem in the last 6 months where you did not have access to dental care?: No Was dental information given to patient?: Patient has dentist HPI HPI Comments History of Present Illness Details 69-year-old male presents for hypertensi on follow-up. He admits to taking his medications as prescribed without adverse reactions. He has been making healthy dietary choices, including low-sodium diet. He exercises routinely. He notes occasional dizziness, once or twice a week, from bending down to rising while tying up his shoelace for the past 6 months. No acute symptoms at this time. [facility] Medical History Cataract of right eye Carpal tunnel syndrome on both sides Surgical History Hx of appendectomy History of knee surgery History of arthroscopic surgery of shoulder Family History Father Stomach cancer Social History Housing: House Alcohol intake: current Comment: Not too bad. I can tell somebodys been in there pt states Patient Tobacco Use Status: Former Tobacco user Cigarette Packs Per Day: 0.5 Cigarettes Per Day: 10 Years Smoked: 20 e-Cigarette/Vaping Use: Never Used Second Hand Smoke Exposure: No service: No Current occupational status: retired Current occupational exposures/hazards: No Cognitive needs: No Hearing needs: No Vision needs: No Questionnaire Thrive Questionnaire Date Thrive assessed: 02/24/24 SHANON-7 AMB Questionnaire SHANON-7 Date SHANON - 7 assessed: 01/28/24 Source: Developed by Drs. Tucker Gastelum, Christine Akins, Bart Walker and colleagues, with an educational wu from [employer]. Review of Systems Const Details: Const Denies chills, Denies fatigue, Denies fever(s), Denies headache(s) and Denies weakness ENT Denies dizziness and Denies headache(s) Card Denies chest pain, Denies lightheadedness, Denies dyspnea and Denies other (Palpitations) Resp Denies cough, Denies dyspnea, Denies wheezing and Denies other ( shortness of breath) GI Denies abdominal pain, Denies melena, Denies hematochezia, Denies change in bowel habits, Denies dyspepsia and Denies nausea Denies hematuria and Denies dysuria Musc Denies abnormal gait, Denies myalgias, Denies arthralgias, Denies numbness and Denies tingling Skin/Breast Denies rash, Denies unusual bruising and Denies wounds Neuro Denies abnormal gait, Denies dizziness, Denies headache(s), Denies memory loss, Denies numbness, Denies Sensory deficit (Neuro), Denies tingling and Denies weakness Psych Denies anxiety, Denies depression, Denies memory loss Endo Denies cold intolerance, Denies fatigue, Denies heat intolerance, Denies polydipsia and Denies polyuria Aller/Immun Denies wheezing Physical exam (Primary Care) Vital Signs: Last Vital Signs Temp 98.3 F 09/04/24 15:08 Pulse 73 09/04/24 15:08 Resp 16 09/04/24 15:08 Pulse Ox 97 09/04/24 15:08 Oxygen Delivery Method Room Air 09/04/24 15:08 BMI result Body Mass Index 26.1 Tobacco/Smoking Status: Tobacco use Status Tobacco use date assessed 07/17/24 09/04/24 15:05 Patient Tobacco Use Status Former Tobacco user 09/04/24 15:05 e-Cigarette/Vaping Use Never Used 09/04/24 15:05 Thrive Assessment: Date of Thrive Assessment Date Thrive assessed 02/24/24 09/04/24 15:05 Const Other: General: no acute distress and well developed Nutritional Appearance: well nourished Orientation/consciousness: patient oriented x3 HENMT Head: Yes normocephalic and Yes atraumatic Eyes General: appearance normal, both eyes and all related structures Pupils: Equal, round and reactive pupils present EOM: EOMs intact bilaterally Resp Effort & Inspection: normal respiratory effort Auscultation: clear to auscultation bilaterally Cardio Rate: regular rate Rhythm: regular rhythm Heart sounds: S1 normal heart sound present, S2 normal heart sound present, no gallops, no murmurs and no rubs GI Palpation (GI): No Abdominal aortic bruit present, Soft to palpation, nontender, No hepatosplenomegaly present and No Rebound tenderness present Auscultation: normal bowel sounds General: Yes no CVA tenderness Back/Spine/Pelvis Back: no CVA tenderness Cervical Spine: cervical ROM normal and No Cervical spine tenderness Thoracic/Lumbar Spine: thoraco-lumbar ROM normal, No pain with thoraco-lumbar ROM, No thoracic spinal tenderness and No lumbar spinal tenderness Extrem General: Yes normal to inspection, No edema and No calf tenderness Skin General: warm and dry. Normal skin color. Normal skin turgor Neuro General: patient oriented x3, gait normal and no focal neuro deficit Cranial nerves: Yes Equal, round and reactive pupils present Cognition (Neuro): normal cognition Gait exam (Neuro): Normal gait present Sensory Exam: No Sensory deficit (Neuro) Psych Appearance: grossly normal Affect: normal affect Attitude: cooperative Thought process: Normal thought process present Coding Level of Care Code Est Pt Level 3 (87306) Diagnoses Primary hypertension I10 Hypertension type: primary hypertension Assessment & Plan Assessment & Plan (1) Hypertension: Code(s): I10 - Essential (primary) hypertension Category: Medical Qualifiers: Hypertension type: primary hypertension Qualified Code(s): I10 - Essential (primary) hypertension Plan: Blood pressure is controlled. He experiences occasional dizziness from bending to rising for the past 6 months. He does not have orthostatic hypotension. Continue current treatment regimen. Follow-up in 3 months or sooner with worsening or new symptoms. Verbalized understanding and agreed with treatment plan.
[2024-09-04 15:08] VITALS: BP 118/57; PULSE 73; RESP 16; TEMP 36.8; O2SAT 97; BMI 26.1
--- OUTSIDE RECORDS SUMMARY | 2024-09-04 15:12 | XMS_ITS | Continuity of Care Document ---
Author Organization [place] - [facility], [facility] Address [address] [place] [address] Care Team Providers Care Sales Order Processor Name Role Phone HECTOR BLANTON Primary Care Provider [phone] Assessment Encounter Date Assessment Date Assessment LastModified by Organization Details LastModified Time 08/25/2024 08/25/2024 MD in [place] (licensed) and patient in [place] using Doximity. 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 We discussed the need for tissue biopsy. This will determine the ultimate course of action re surgical resection, chemo and/or XRT. He understands need to get the images and bring to Dr Bae's office. We discussed he would likely have in office biopsy and then determine the course of treatment. I can follow locally after treatment laim Not available 08/25/2024 13:12:31 Plan of Treatment Reminders Order Date Submit Date Provider Last Modified By Organization Details Last Modified Time Details Appointments None recorded. Lab None recorded. Referral rhinology referral 2024 025 ALISSON Bae MD, [address] [facility] [address], [place], [address], 11:48:22 Procedures None recorded. Surgeries None recorded. Imaging None recorded. Medication Orders None recorded. Patient TargetsNo targets recorded. Patient InstructionsNo instructions recorded. Reason for Referral Rhinology Referral for Polyp of nasal cavity Referring Physician: Leon Stark, Otolaryngology, Encounter Date: 08/25/2024 Results Created Date Observation Date Name Description Value Unit Range Abnormal Flag Note LastModifiedBy Organization Detail LastModifiedTime 08/13/1909/19/2023 CT, sinus es, w/o contr ast No observ ation record ed. BARCODE Not Available 2024 13:25:08 08/19/19 25 08/17/2024 CT, maxil lofac ial, w/o contr ast No observ ation record ed. [facility] [address] [place], [address], 08/19/2024 12:46:37 08/21/19 25 08/19/2024 CT, maxil lofac ial, w/o contr ast No observ ation record ed. [email or web address] Not Available 01/2025 10:34:57 08/25/19 25 08/22/2024 MRI, head + neck + orbit s, w/wo contr ast [facility] Access ion Number : [id number] t Name: Bobby Underwooda hailey Record Number : [id number] Date of : 1954 Date of Exam: 2024 Referr ing Physic silke: Leon Greco Ear Nose [address] [place] [address] Exam: MR Orbits , Face, Neck (C-/C+ ) CPT 88052 Room Descri ption: [facility] Espr 1.5 MR Orbits , Face, Neck (C-/C+ ) CPT 04860 - [place] sm of uncert ain behavi or of respir atory organ, unsp, , see CT at BS..ne ed to assess skull base and intrac ranial extens ion\E E\[facility] (MRI, ORBITS , W/WO CONTRA ST) / - [place] sm of uncert ain behavi or of respir atory organ, unsp, , see CT at BS..ne ed to assess skull base and intrac ranial extens ion\E E\[facility] (MRI, ORBITS , W/WO CONTRA ST) - Standa rd Depart ment Protoc ol TECHNI QUE: MRI of the face/s inuses was perfor med with and withou t intrav enous contra st. Obtain ed sequen keyon: sagitt al T1, fernandez l T1, fat-sa turate d fernandez l T2, axial T1, fat-sa turate d axial T2, and post-c ontras t axial and fernandez l fat-sa turate d T1-alyce ghted sequen keyon as well as post contra st axial 3-D T1 VIBE. 15 mL Dotare m intrav enous contra st was admini stered . COMPAR PORTIA: Maxill ofacia l CT perfor med 08/17/19 24.. FINDIN GS: SINUSE S: There is a T2 hypoin tense mass with a few ncaa compliance internship al T2 hyperi ntense compon ents mostly toward s the right of midlin e which shows avid diffus e hetero geneou s enhanc ement, includ ing enhanc ement along the T2 hyperi ntense region s. It measur es approx imatel y 5.4 cm AP by 2.9 cm transv erse by 5.2 cm superi or-inf erior, and to the right of midlin e, there is extens ion across the cribri form plate into the intrac ranial compar tment with mass effect on the adjace nt inferi or fronta l lobe though there is no defini te parenc hymal signal altera tion in the fronta l lobe. The postco ntrast images are degrad ed by motion , but there appear s to be asymme tric soft tissue thicke iliana along both the vidian canal and forame n rotund um on the right suspic ious for perine ural tumor spread . There is associ ated bone destru ction along the nasal septum , spheno id septum , ethmoi d air cells, cribri form plate, lamina papyra cea, and planum spheno idale all of which better assess ed by the CT. There is also bowing of the otoole of the maxill tito sinuse s withou t clear obstru ction, better seen by the CT. There is scatte red parana ayleen sinus mucosa l thicke iliana with fluid in the bilate ral maxill tito sinuse s, fluid in the spheno id sinus, and comple te opacif icatio n of the fronta l sinuse s likely second tito to obstru ction by the mass. ORBITS : Right lens extrac tion noted. The globes are intact . The optic nerves , chiasm , and tracts demons trate normal signal and course , with no abnorm al enhanc ement. The extrao cular muscle s are symmet shauna and normal in signal and contou r. The lacrim al glands are symmet shauna. Orbita l fat is normal . Althou gh there is bone destru ction along the lamina papyra cea, there is no defini te soft tissue mass extend ing into the orbita l fat. There is no intra- orbita l mass, fluid collec tion, or abnorm al enhanc ement. BRAIN: Intrac ranial extens ion of sinona ayleen mass along the cribri form plate with mass effect on the inferi or left fronta l lobe as above. EXTRAC RANIAL SOFT TISSUE S: Visual ized extrac ranial soft tissue s are unrema rkable . BONES: Marrow signal is preser edita. IMPRES TELMA: 5.2 cm sinona ayleen mass as detail ed above with extens ion across the eroded perfor med plate into the intrac ranial compar tment, result ing in mass effect on the inferi or left fronta l lobe with no parenc hymal signal altera tion. Althou gh the exam is degrad ed by motion , findin gs are suspic ious for perine ural spread along the right forame n rotund um and vidian canal. Differ ential consid eratio ns again includ e both sinona ayleen malign kirill and olfact ory neurob lastom a, favor sinona ayleen malign kirill. Electr onical ly Signed By: Marilee rincon [facility] ([facility]) [address] [facility] [facility], [place], [address], 08/26/2024 11:03:30 Result Notes None recorded. 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 [place] 10:10:38 Problem Notes None recorded. Medical Equipment None Reported. Allergies No known drug allergies Medications Name Sig Start Date Stop Date Status Note LastModified by Organization Details LastModified Time lisinopril 20 mg tablet TAKE 1 TABLET BY MOUTH DAILY active Not Available Not Available No t Available acetaminoph en 300 mg-codeine 30 mg tablet TAKE 2 TABLETS BY MOUTH EVERY 4 HOURS NEEDED FOR PAIN 08/13 completed Not Available Not Available Not Available amlodipine 5 mg tablet TAKE 1 TABLET BY MOUTH DAILY active Not Available Not Available No t Available oxycodone-a cetaminophe n 5 mg-325 mg tablet TAKE 1 TABLET BY MOUTH EVERY 6 HOURS NEEDED FOR PAIN 08/13 completed Not Available Not Available Not Available amoxicillin 875 mg tablet TAKE 1 TABLET BY MOUTH TWICE DAILY 08/13 completed Not Available Not Available Not Available lisinopril 10 mg tablet TAKE 1 TABLET BY MOUTH DAILY 08/13 completed Not Available Not Available Not Available methylpredn isolone 4 mg tablets in a dose pack FOLLOW PACKAGE DIRECTION S 08/13 completed Not Available Not Available Not Available hydroxyzine HCl 10 mg tablet TAKE 1 TABLET BY MOUTH FOUR TIMES DAILY NEEDED FOR ANXIETY 08/13 completed Not Available Not Available Not Available Vitals None Recorded Social History None recorded. Functional Status None recorded. Mental Status None recorded. Family History Nothing Reported. Medical History Condition Response Allergies/Hayfever N Heart Problems N Anxiety N Tonsil Infections N Emphysema N Migraines N Thyroid Problems N Glaucoma N Depression N COPD N Developmental Delay N Nasal or Sinus Problems Y Anemia N Immune System Disorder N Anesthesia Complications N Heart Attack (CA) N Other Skin Condition N Diabetes N Rhinitis N Bleeding Disorder N Food Allergy N Arthritis N Hearing Loss N Hyperlipidemia N Cancer N Stroke N Dementia N Nasal polyps Y Asthma N High Cholesterol N Sleep Disorder N GERD/Reflux N Liver Disease N Headaches N Fibromyalgia N Hypertension Y Speech Delay N Kidney Disease N Past Encounters Encounter ID Performer Location Encounter Start Date Encounter Closed Date Diagnosis/Indication Diagnosis SNOMED-CT Code Diagnosis ICD10 Code Diagnosis Note [id number] LEON BELLO MD [facility] of [address] [address] 08/13/2024 09:20:44 08/13/2024 12:32:28 Polyp of nasal cavity 320192937 J33.0 Patient with history of nasal polyps for over 1 year. He reports having some bleeding maybe 2-1/2 years ago but none for at least the last year. He was seen by Dr. Foy about a year ago and noted to have polyps but since he does not do any surgery was not treated. He was referred to our office and appointmen t was made in May. He notes obstructio n on both sides but no bleeding and no visual change. Hx of cataracts Examinatio n shows bilateral polypoid nasal mass. There edges are somewhat irregular/ inverted. Origin difficult to discern due to the size I reviewed the imaging from September 2023. There is evidence of significan t soft tissue in the nasal cavity which appears to be causing destructio n of the septum, middle turbinates , ethmoid cell and possibly the septum. It is unclear whether the skull base is intact. I have suggested updating imaging with better delineatio n of the borders of the polyps and if necessary we may need to consider an MRI scan. 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 Needs biopsy and possible resection. Imaging and plan reviewed with patient Prior visitPatie nt with history of nasal polyps for over 1 year. He reports having some bleeding maybe 2-1/2 years ago but none for at least the last year. He was seen by Dr. Foy about a year ago and noted to have polyps but since he does not do any surgery was not treated. He was referred to our office and appointmen t was made in May. He notes obstructio n on both sides but no bleeding and no visual change. Hx of cataracts Examinatio n shows bilateral polypoid nasal mass. There edges are somewhat irregular/ inverted. Origin difficult to discern due to the size I reviewed the imaging from September 2023. There is evidence of significan t soft tissue in the nasal cavity which appears to be causing destructio n of the septum, middle turbinates , ethmoid cell and possibly the septum. It is unclear whether the skull base is intact. I have suggested updating imaging with better delineatio n of the borders of the polyps and if necessary we may need to consider an MRI scan. He may benefit from biopsy once it is clear this is not an encephaloc barbara (unlikely) Neoplasm o f uncertain behavior of respiratory tract 21172297 D38.6 Chronic sinusitis 834160 00 J32.8 Health Concerns Section Related Observation LastModified by Organization Detai ls LastModified Time None Recorded Concern Status LastModified by Organization Details LastModified Time None Recorded Payers Encounter Date Sequence Insurance Name Policy Number Policy Lanier Covered Member ID Lanier Member ID Guarantor Name 08/25/2024 1 [employer] (MEDICARE REPLACEMENT PPO) [id number] Raghav Underwood [id number] Raghav Underwood Notes Date Note Type Note Provider Name and Address Organization Details Recorded Time 08/25/2024 text/html MD in [place] (licensed) and patient in [place] using Z2 audio/video. 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
--- OUTSIDE RECORDS SUMMARY | 2024-09-04 15:12 | XMS_ITS | Patient Health Record ---
Author Organization [facility] Address [address] [address] Care Team Providers Care Polisher Hand Name Role Phone BEULAH DUMONT Primary Care Provider Allergies No Known Allergies Reason For Referral [...] W/U Status Risk Notes Problem Lumbar sprain (339275102) Sprain of ligaments of lumbar spine, initial encounter (S33.5XXA) Active confirmed Problem Lumbosacral spondylosis without myelopathy (disorder) (53326270) Spondylosis without myelopathy or radiculopathy, lumbosacral region (M47.817) Active confirmed Plan Of Treatment Pending Test Test Name Order Date Q-PSA, TOTAL 11/16/2009 Q-COMPREHENSIVE METABOLIC$PANEL W/EGFR 0 11/16/2009 Q-COMPREHENSIVE METABOLIC$PANEL W/EGFR 0 10/30/2011 Q-HEPATITIS PANEL, ACUTE W/REFLEX 2013 Q-LIPID PANEL WITH REFLEX TO DIRECT LDL 11/16/2009 Q-LIPID PANEL WITH REFLEX TO DIRECT LDL 10/30/2011 Lipid Panel With LDL/HDL Ratio 6 Lipid Panel With LDL/HDL Ratio 4 Comp. Metabolic Panel (14) 11/28/2015 Comp. Metabolic [...] Insured Coverage Start Date Coverage End Date [facility] [address] [address] [place] [address] [id number] CHITO DE LA ROSA Self - patient is the insured 7 Medical (General) History Medical History History ICD Code lumbar dic disease Surgical History Surgery Date(Month/Year) left arm rotator cuff tear repair orthroscopic knee surgery colonoscopy- 2012 tonsillectomy
--- OUTSIDE RECORDS SUMMARY | 2024-09-04 15:12 | XMS_ITS | Data Portability ---
Author Organization [place] - [facility], Allergy Address [address] [address] Care Team Providers Care Quill Cleaner Name Role Phone HECTOR BLANTON Primary Care Provider [phone] Assessment Encounter Date Assessment Date Assessment LastModified by Organization Details LastModified Time 08/25/2024 08/25/2024 MD in [place] (licensed) and patient in [place] using Doximity. (7 minutes) Reviewed imaging results [...] treatment. I can follow locally after treatment liam Not available 08/25/2024 13:12:31 Plan of Treatment Reminders Order Date Submit Date Provider Last Modified By Organization Details Last Modified Time Details Appointments None recorded. Lab None recorded. Referral rhinology referral 2024 025 ALISSON Bae MD, [address] [facility] [address], [place], [address], 11:48:22 Procedures None recorded. Surgeries None recorded. Imaging CT, maxillofac ial, w/o contrast - please pay close attention to skull base to see if any erosion 2024 025 [facility] (Imaging), [address], [place], [address], 14:06:18 Medication Orders None recorded. Patient TargetsNo targets recorded. Patient InstructionsNo instructions recorded. Reason for Referral Rhinology Referral for Polyp of nasal cavity Referring Physician: Leon Stark, Otolaryngology, Encounter Date: 08/25/2024 Results Created Date Observation Date Name Description Value Unit Range Abnormal Flag Note LastModifiedBy Organization Detail LastModifiedTime 08/13/19 25 09/19/2023 CT, sinus es, w/o contr ast No observ ation record ed. BARCODE Not Available 2024 13:25:08 08/19/19 25 08/17/2024 CT, maxil lofac ial, w/o contr ast No observ ation record ed. [facility] [address] [place], [address], 08/19/2024 12:46:37 08/21/19 25 08/19/2024 CT, maxil lofac ial, w/o contr ast No observ ation record ed. [email or web address] Not Available 01/2025 10:34:57 08/25/19 25 08/22/2024 MRI, head + neck + orbit s, w/wo contr ast [facility] Access ion Number : [id number] no Name: Bobby Underwood Record Number : [id number] Date of : 1954 Date of Exam: 2024 Referr ing Physic silke: Leon Greco Ear Nose [address] [place] [address] Exam: MR Orbits , Face, Neck (C-/C+ ) CPT 10738 Room Descri ption: [facility] Espr 1.5 MR Orbits , Face, Neck (C-/C+ ) CPT 18608 - [place] sm of uncert ain behavi [...] T2 hypoin tense mass with a few business services intern al T2 hyperi ntense compon ents mostly [...] Electr onical ly Signed By: Marilee rincon [facility] ([facility]) [address], [place], [address], 08/26/2024 11:03:30 Result Notes None recorded. Problems Name Problem SNOMED Code Status Onset Date Resolution Date Notes Provider Name and Address Organization Details Recorded Time Polyp of nasal cavity 021806157 Active 2024 LEON EDDY MD [address] [facility], [place], [address], 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 Procedures Surgical History None recorded. Imaging Results Imaging Date Name Status LastModified by Organiz ation Details LastModified Time 09/19/2023 CT, sinuses, w/o contrast completed [facility] Information not available 08/13/2024 13:25:08 08/17/2024 CT, maxillofacial , w/o contrast completed [facility] [address] [place], [address], 08/19/2024 12:46:37 08/19/2024 CT, maxillofacial , w/o contrast completed [email or web address] Information not available 08/21/2024 10:34:57 08/22/2024 MRI, head + neck + orbits, w/wo contrast completed [facility] ([facility]) [address] [place], [address], 08/26/2024 11:03:30 Procedure Notes None recorded. Medical Equipment None Reported. [...] History Nothing Reported. Medical History Condition Response Tonsil Infections N Emphysema N Glaucoma N Depression N COPD N Nasal or Sinus Problems Y Anesthesia Complications N Arthritis N Hearing Loss N Cancer N Stroke N High Cholesterol N Liver Disease N Headaches N Fibromyalgia N Speech Delay N Kidney Disease N Allergies/Hayfever N Heart Problems N Anxiety N Migraines N Thyroid Problems N Developmental Delay N Anemia N Immune System Disorder N Heart Attack (AR) N Other Skin Condition N Diabetes N Rhinitis N Bleeding Disorder N Food Allergy N Hyperlipidemia N Dementia N Nasal polyps Y Asthma N Sleep Disorder N GERD/Reflux N Hypertension Y Past Encounters Encounter ID Performer Location Encounter Start Date Encounter Closed Date Diagnosis/Indication Diagnosis SNOMED-CT Code Diagnosis ICD10 Code Diagnosis Note [id number] LENO BELLO MD [facility] of [facility] [address] [place] [address] 08/13/2024 09:20:44 08/13/2024 12:32:28 Polyp of nasal cavity 591618729 J33.0 Patient with history of nasal polyps [...] o f uncertain behavior of respiratory tract 18029519 D38.6 Chronic sinusitis 302774 00 J32.8 [id number] [facility] of [address] [address] 08/25/2024 12:48:04 08/25/2024 14:23:48 Polyp of nasal cavity 274748532 J33.0 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 [...] o f uncertain behavior of respiratory tract 62420049 D38.6 Chronic sinusitis 486924 00 J32.8 Health Concerns Section Related Observation LastModified by Organization Detai ls LastModified Time None Recorded Concern Status LastModified by Organization Details LastModified Time None Recorded Advance Directives Directive None Recorded Payers Encounter Date Sequence Insurance Name Policy Number Policy Lanier Covered Member ID Lanier Member ID Guarantor Name 08/13/2024 1 [employer] (MEDICARE REPLACEMENT PPO) [id number] 1 Raghav Gomeze [id number] Raghav Glez Underwood 08/25/2024 1 [employer] (MEDICARE REPLACEMENT PPO) [id number] Raghav Gomeze [id number] Raghav Underwood Notes Date Note Type Note Provider Name and Address Organization Details Recorded Time 08/13/2024 text/html Reports he had epistaxis about 2.5 years ago that seems to be worse when he blows his nose. Chronic congestion on both sides right greater than left. Right side draining mucous. Saw Dr Foy about 1 year ago and noted polyps.Has been using saline solution. No trial of prednisone or steroid nasal sprays.No asthma or allergyNo ASA or NSAID allergy. Denies history of diabetesNo nasal bleeding for about 1 year SNOT=24Nose=55 LEON STARK MD [address] [place] [address],[address], [address], [facility] - [facility] 08/13/2024 14:03:49 08/25/2024 text/html in [place] (licensed) and patient in [place] using [employer] audio/video. 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
[2024-09-04 15:21] VITALS: BP 128/60; PULSE 68
[2024-09-04 15:42] VITALS: BP 134/60; PULSE 72
[2024-09-04 15:48] VITALS: BP 116/60; PULSE 72
== END 2024-09-04 15:54 | disposition home or self-care (01) ==
PROVIDERS: PCP Nurse Practitioner Family; Visit Provider Nurse Practitioner Family
DX: I10 Essential (primary) hypertension (principal)

== ENCOUNTER → 2024-09-04 15:02 | Outpatient (BNVA) | payer MEDICARE, SELFPAY | PROVIDERS: PCP Nurse Practitioner Family; Visit Provider Nurse Practitioner Family | DX: I10 Essential (primary) hypertension (principal) | CPT/HCPCS: 99212 ==

== ENCOUNTER 2024-12-04 15:10 | Outpatient (AMB) | payer MEDICARE, SELFPAY ==
--- OUTSIDE RECORDS SUMMARY | 2024-12-04 15:12 | XMS_ITS | Data Portability ---
Author Organization [place] - [facility], Allergy Address [address] [address] Care Team Providers Care Inspectors And Regulatory Officers Name Role Phone HECTOR BLANTON Primary Care Provider [phone] Assessment Encounter Date Assessment Date Assessment LastModified by Organization Details LastModified Time 08/25/2024 08/25/2024 [place] and patient in [place] using Doximity. (7 minutes) Reviewed imaging results [...] None recorded. Referral rhinology referral 2024 025 [email or web address] Cleveland Bae MD, [address] [facility] [address], [place], [address], 09:46:52 Procedures None recorded. Surgeries None recorded. Imaging CT, maxillofac ial, w/o contrast - please pay close attention to skull base to see if any erosion 2024 025 [email or web address] [facility] (Imaging), [address] [facility], [place], [address], 14:06:18 Medication Orders None recorded. Patient TargetsNo [...] contr ast No observ ation record ed. [facility] [address] [place], [address], 08/19/2024 12:46:37 08/21/19 25 08/19/2024 CT, maxil lofac ial, w/o contr ast No observ ation record ed. [email or web address] Not Available 01/2025 10:34:57 08/25/19 25 08/22/2024 MRI, head + neck + orbit s, w/wo contr ast [facility] Access ion Number : [id number] no Name: Bobby Underwooda l Record Number : [id number] Date of : 1954 Date of Exam: 2024 Referr ing Physic silke: Leon [facility]co [facility] [address] [place] [address] Exam: MR Orbits , Face, Neck (C-/C+ ) CPT 15494 Room Descri ption: [place] Siem Espr 1.5 MR Orbits , Face, Neck (C-/C+ ) CPT 40208 - [place] sm of uncert ain behavi [...] T2 hypoin tense mass with a few event planning intern al T2 hyperi ntense compon ents [...] Electr onical ly Signed By: Marilee rincon [facility] ([facility]) [address], [place], [address], 08/26/2024 11:03:30 Result Notes None recorded. 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 Procedures Surgical History None recorded. Imaging Results Imaging Date Name Status LastModified by Organiz ation Details LastModified Time 09/19/2023 CT, sinuses, w/o contrast completed [facility] Information not available 08/13/2024 13:25:08 08/17/2024 CT, maxillofacial , w/o contrast completed [facility] [address] [place], [address], 08/19/2024 12:46:37 08/19/2024 CT, maxillofacial , w/o contrast completed [email or web address] Information not available 08/21/2024 10:34:57 08/22/2024 MRI, head + neck + orbits, w/wo contrast completed [facility] ([facility]) [address] [place], [address], 08/26/2024 11:03:30 Procedure Notes None recorded. Medical [...] Condition Response Tonsil Infections N Emphysema N Depression N COPD N Arthritis N Cancer N Stroke N Headaches N Fibromyalgia N Kidney Disease N Heart Problems N Anxiety N Migraines N Other Skin Condition N Rhinitis N Bleeding Disorder N Food Allergy N Nasal polyps Y Asthma N Sleep Disorder N GERD/Reflux N Glaucoma N Nasal or Sinus Problems Y Anesthesia Complications N Hearing Loss N High Cholesterol N Liver Disease N Speech Delay N Allergies/Hayfever N Thyroid Problems N Developmental Delay N Anemia N Immune System Disorder N Heart Attack ([place]) N Diabetes N Hyperlipidemia N Dementia N Hypertension Y Past Encounters Encounter ID Performer Location Encounter Start Date Encounter Closed Date Diagnosis/Indication Diagnosis SNOMED-CT Code Diagnosis ICD10 Code Diagnosis Note [id number] LEON BELLO MD [facility] [address] [address] 08/13/2024 09:20:44 08/13/2024 12:32:28 Polyp of nasal cavity 996395094 J33.0 Patient with history of nasal polyps [...] o f uncertain behavior of respiratory tract 23186523 D38.6 Chronic sinusitis 907405 00 J32.8 [id number] LEON BELLO MD [facility] [address] [address] 08/25/2024 12:48:04 08/25/2024 14:23:48 Polyp of nasal cavity 689003614 J33.0 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 [...] o f uncertain behavior of respiratory tract 78178021 D38.6 Chronic sinusitis 957235 00 J32.8 Health Concerns Section Related Observation LastModified by Organization Detai ls LastModified Time None Recorded Concern Status LastModified by Organization Details LastModified Time None Recorded Advance Directives Directive None Recorded Payers Insurance Date Sequence Insurance Name Policy Number Policy Lanier Covered Member ID Lanier Member ID Guarantor Name 08/25/2024 1 [employer] (MEDICARE REPLACEMENT/ ADVANTAGE - PPO) Raghav Glez Kj [id number] Raghavprakash Underwood 08/13/2024 1 [employer] (PPO) Raghav Glez Kj [id number] Raghav Glez Kj Notes Date Note Type Note Provider Name [...] about 1 year SNOT=24Nose=55 LEON STARK MD [address] [place] [address],[address], [address], [facility] - [facility] 08/13/2024 14:03:49 08/25/2024 text/html [place] and [place] in [place] using ExtendEvent audio/video. 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
--- NOTE | 2024-12-04 15:14 | MHC.PC.OV ---
Vital Signs 12/04/24 15:19 Height 5 ft 8 in Weight 171 lb 2 oz BMI 26.0 BP 118/64 Blood Pressure Location Rt brachial Position Sitting Respiration 14 Pulse 64 Pulse Source Pulse Oximeter Temp 98.6 F Temp Source Oral Pulse Oximetry (%) 99 Oxygen Delivery Method Room Air Intake Visit Reasons: 3 mos HTN Intake Note: Three month follow up Principal Technologist Required: No Allergies No Known Allergies Allergy (Verified 12/04/24 15:31) Medication List - Last Reviewed 12/08/24 by Brittni Perea MA amlodipine 5 mg PO DAILY 90 days cyanocobalamin (vitamin B-12) 100 mcg PO DAILY lisinopril 20 mg PO DAILY 90 days sodium chloride 1,000 mg PO TID Tobacco use date assessed: 12/04/24 Fall risk assessment: No Falls in past year Last assessed Fall Risk: 12/04/24 Dental Screening Dental Screen Date: 12/04/24 Did you have a dental visit in the last 12 months?: Yes Did you have a dental problem in the last 6 months where you did not have access to dental care?: No Was dental information given to patient?: Patient has dentist HPI HPI Comments History of Present Illness Details 69-year-old male presents for hypertension follow-up. He admits to taking his medications as prescribed without adverse reactions. He has been making healthy dietary choices, including low-sodium diet. He exercises routinely. He notes occasional dizziness, once or twice a week, from bending down to rising while tying up his shoelace for the past 6 months. No acute symptoms at this time. He was a direct admit from [facility] ED to [facility] in the middle of September 2024 for complaints of headache, sinus pressure, nausea, and vomiting. 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 Repeat CBC in 3-6 months was also recommended. Patient did not follow-up with his PCP as recommended. CT head/neck on 09/30 revealed the following: Addendum Date: 09/30/2024 ADDENDUM Included in the findings section, and inadvertently excluded from the impression: Indeterminate left level ll versus parotid lymph node/lesion overlying the sternocleidomastoid measuring 1.3 x 0.6 cm. Recommend continued follow-up to ensure stability, versus tissue sampling. Electronicaly signed by: Bradford Melendez Signed date and time: 09/30/2024 11:43 AM Result Date: 09/30/2024 IMPRESSION: 1. Redemonstration of expansile nasal cavity mass with cortical destruction and extension into the adjacent sinuses and anterior cranial fossa which measures up to 6 cm as described in detail above. 2. Moderate narrowing of the left vertebral artery origin. 3. No large vessel occlusion, severe stenosis, dissection, or aneurysm on CTA of the head and neck. I personally reviewed the study and agree with the dictated report. E lectronically signed by: Bradford Melendez Signed date and time: 09/30/2024 11:38 AM. 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 His follow-up with the surgical team is in 12/2024 via telehealth. He denies noseblees, headache, sinus pressure, or n/v since discharged. He denies acute symptoms at this time. No current surgical wound present. Record for surgery on 10/13/2024 not currently available; will request record for review. [facility] Medical History Cataract of right eye Carpal tunnel syndrome on both sides Surgical History Hx of appendectomy History of knee surgery History of arthroscopic surgery of shoulder Family History Father Stomach cancer Social History Housing: House Alcohol intake: current Comment: Not too bad. I can tell somebodys been in there pt states Patient Tobacco Use Status: Former Tobacco user Cigarette Packs Per Day: 0.5 Cigarettes Per Day: 10 Years Smoked: 20 e-Cigarette/Vaping Use: Never Used Second Hand Smoke Exposure: No service: No Current occupational status: retired Current occupational exposures/hazards: No Cognitive needs: No Hearing needs: No Vision needs: No Questionnaire PHQ-9 Over the last 2 weeks, how often have you been bothered by any of the following problems? 1. Little interest or pleasure in doing things: not at all 2. Feeling down, depressed, or hopeless: not at all 3. Trouble falling or staying asleep, or sleeping too much: not at all 4. Feeling tired or having little energy: not at all 5. Poor appetite or overeating: not at all 6. Feeling bad about yourself - or that you are a failure or have let yourself or your family down: not at all 7. Trouble concentrating on things, such as reading the newspaper or watching television: not at all 8. Moving or speaking so slowly that other people could have noticed. Or the opposite - being so fidgety or restless that you have been moving around a lot more than usual: not at all 9. Thoughts that you would be better off or of hurting yourself in some way: not at all Total score: 0 Depression Screening Interpretation: Negative Depression Screening Done: Yes 58198 - PHQ-9 Billing: Yes Source: Developed by Drs. Tucker Gastelum, Christine Akins, Bart Walker and colleagues, with an educational wu from [employer]. Thrive Questionnaire Date Thrive assessed: 12/04/24 I am a: Patient What is your living situation today?: I have a steady place to live Within the past 12 months, did the food you bought not last and you didn't have the money to get more?: Never true Within the past 12 months, did you worry whether your food would run out before you got money to buy more?: Never true Do you have trouble paying for medicines?: No Do you have trouble getting transportation to medical appointments?: No Do you have trouble paying your heating and electricity bill?: No Do you have trouble taking care of your child, family member or friend?: No Do you have trouble with day-to-day activities such as bathing, preparing meals, shopping, managing finances, etc.?: No Are you currently unemployed and looking for a job?: No Are you interested in more education?: No Please select the resources that you would like help with: None Currently or been in a relationship where the following occur: No concerns reported THRIVE Score: 0 AUDIT C Alcohol Use Questionnaire (AUDIT-C) 1. How often do you have a drink containing alcohol?: Monthly or less 2. How many drinks containing alcohol do you have on a typical day when you are drinking?: 1 or 2 3. How often do you have six or more drinks on one occasion?: Never Total Score: 1 SHANON-7 AMB Questionnaire SHANON-7 Date SHANON - 7 assessed: 12/04/24 Feeling nervous, anxious, or on edge: 0 = Not at all Not being able to stop or control worryin = Not at all Worrying too much about different things: 0 = Not at all Trouble relaxin = Not at all Being so restless that it is hard to sit still: 0 = Not at all Becoming easily annoyed or irritable: 0 = Not at all Feeling afraid as if something awful might happen: 0 = Not at all Total SHANON-7 score (0-4 normal; 5-9 mild; 10-14 moderate; 15-21 severe): 0 Source: Developed by Drs. Tucker Gastelum, Christine Akins, Batr Walker and colleagues, with an educational wu from [employer]. SHANON-7 Assessment Billing SHANON-7 Assessment Tool: SHANON-7 Assessment 02851 Review of Systems Const Details: Const Denies chills, Denies fatigue, Denies fever(s), Denies headache(s) and Denies weakness ENT Denies dizziness and Denies headache(s) Card Denies chest pain, Denies lightheadedness, Denies dyspnea and Denies other (Palpitations) Resp Denies cough, Denies dyspnea, Denies wheezing and Denies other ( shortness of breath) GI Denies abdominal pain, Denies melena, Denies hematochezia, Denies change in bowel habits, Denies dyspepsia and Denies nausea Denies hematuria and Denies dysuria Musc Denies abnormal gait, Denies myalgias, Denies arthralgias, Denies numbness and Denies tingling Skin/Breast Denies rash, Denies unusual bruising and Denies wounds Neuro Denies abnormal gait, Denies dizziness, Denies headache(s), Denies memory loss, Denies numbness, Denies Sensory deficit (Neuro), Denies tingling and Denies weakness Psych Denies anxiety, Denies depression, Denies memory loss Endo Denies cold intolerance, Denies fatigue, Denies heat intolerance, Denies polydipsia and Denies polyuria Aller/Immun Denies wheezing Physical exam (Primary Care) Vital Signs: Last Vital Signs Temp 98.6 F 12/04/24 15:19 Pulse 64 12/04/24 15:19 Resp 14 12/04/24 15:19 BP 118/64 12/04/24 15:19 Pulse Ox 99 12/04/24 15:19 Oxygen Delivery Method Room Air 12/04/24 15:19 BMI result Body Mass Index 26.0 Tobacco/Smoking Status: Tobacco use Status Tobacco use date assessed 12/04/24 12/04/24 15:22 Patient Tobacco Use Status Former Tobacco user 12/04/24 15:22 e-Cigarette/Vaping Use Never Used 12/04/24 15:22 PHQ-9: PHQ-9 Score PHQ-9: Total score 0 12/08/24 10:32 Depression Screening Interpretation: Negative Thrive Assessment: Date of Thrive Assessment Date Thrive assessed 12/04/24 12/04/24 15:22 Currently or been in a relationship where the following occur: No concerns reported Const Other: General: no acute distress and well developed Nutritional Appearance: well nourished Orientation/consciousness: patient oriented x3 HENMT Head: Yes normocephalic and Yes atraumatic Eyes General: appearance normal, both eyes and all related structures Pupils: Equal, round and reactive pupils present EOM: EOMs intact bilaterally Resp Effort & Inspection: normal respiratory effort Auscultation: clear to auscultation bilaterally Cardio Rate: regular rate Rhythm: regular rhythm Heart sounds: S1 normal heart sound present, S2 normal heart sound present, no gallops, no murmurs and no rubs GI Palpation (GI): No Abdominal aortic bruit present, Soft to palpation, nontender, No hepatosplenomegaly present and No Rebound tenderness present Auscultation: normal bowel sounds General: Yes no CVA tenderness Back/Spine/Pelvis Back: no CVA tenderness Cervical Spine: cervical ROM normal and No Cervical spine tenderness Thoracic/Lumbar Spine: thoraco-lumbar ROM normal, No pain with thoraco-lumbar ROM, No thoracic spinal tenderness and No lumbar spinal tenderness Extrem General: Yes normal to inspection, No edema and No calf tenderness Skin General: warm and dry. Normal skin color. 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 Continue current treatment regimen. Low sodium diet encouraged. Encouraged to change positions slowly to prevent sudden drop in blood pressure which may cause dizziness. Will continue to monitor. Advised to perform lab work a few days before his next visit. Follow up in 2 months for a CPE and labs review. Return sooner with symptoms or concerns. Verbalized understanding and agreed with the plan. 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 His follow-up with the surgical team is in 12/2024 via telehealth. He denies noseblees, headache, sinus pressure, or n/v since discharged. He denies acute symptoms at this time. No current surgical wound present. Record for surgery on 10/13/2024 not currently available; will request record for review. Advised to continue current treatment regimen. Continue follow-up with [facility]. Return with symptoms or concerns. Verbalized understanding and agreed with the plan. (3) Laboratory tests ordered as part of a complete physical exam (CPE): Code(s): Z. - Encounter for general adult medical examination without abnormal findings Category: Medical Plan: Fasting labs ordered as part of a complete physical exam. Advised to fast for at least 10 hours before getting labs drawn. May drink water Verbalized understanding and agreed with treatment plan. Orders: Orders Complete Blood Count Auto Diff 12/04/24 Z. - Encounter for general adult medical examination without abnormal findings Microalbumin, Random (w Creat) 12/04/24 Z. - Encounter for general adult medical examination without abnormal findings UA CC w/rflx Micro + Cult 12/04/24 Z. - Encounter for general adult medical examination without abnormal findings Comprehensive [place]. Panel Fast 12/04/24 Z. - Encounter for general adult medical examination without abnormal findings Lipid Panel 12/04/24 Z. - Encounter for general adult medical examination without abnormal findings TSH reflex Free T4 12/04/24 Z. - Encounter for general adult medical examination without abnormal findings Vitamin D 25-OH Total 12/04/24 Z00. - Encounter for general adult medical examination without abnormal findings
[2024-12-04 15:19] VITALS: BP 118/64; PULSE 64; RESP 14; TEMP 37; O2SAT 99; BMI 26.0
== END 2024-12-04 15:43 | disposition home or self-care (01) ==
LOC: HO.HMCFM 15:10
PROVIDERS: PCP Nurse Practitioner Family; Visit Provider Nurse Practitioner Family
DX: I10 Essential (primary) hypertension (principal); D14.0 Benign neoplasm of middle ear, nasal cavity and accessory sinuses; Z00.00 Encounter for general adult medical examination without abnormal findings

== ENCOUNTER → 2024-12-04 15:10 | Outpatient (BNVA) | payer MEDICARE, SELFPAY | PROVIDERS: PCP Nurse Practitioner Family; Visit Provider Nurse Practitioner Family | DX: I10 Essential (primary) hypertension (principal); D14.0 Benign neoplasm of middle ear, nasal cavity and accessory sinuses; Z13.30 Encounter for screening examination for mental health and behavioral disorders, unspecified | CPT/HCPCS: 96127; 99212 ==

== ENCOUNTER 2025-01-26 09:08 | Outpatient (REF) | payer MEDICARE, SELFPAY ==
--- OUTSIDE RECORDS SUMMARY | 2025-01-26 09:30 | XMS_ITS | Patient Health Record ---
Author Organization [employer] [facility] Address [address] [address] Care Team Providers Care Head Worker Name Role Phone BEULAH DUMONT Primary Care [...] Problem Status W/U Status Risk Notes Problem Sprain of ligaments of lumbar spine, initial encounter (S33.5XXA) Active confirmed Problem Lumbosacral spondylosis without myelopathy (disorder) (83216618) Spondylosis without myelopathy or radiculopathy, lumbosacral region (M47.817) Active confirmed Plan Of Treatment Pending Test Test Name Order Date Q-PSA, TOTAL 11/16/2009 Q-COMPREHENSIVE METABOLIC$PANEL W/EGFR 0 10/30/2011 Q-COMPREHENSIVE METABOLIC$PANEL W/EGFR 0 11/16/2009 Q-HEPATITIS PANEL, ACUTE W/REFLEX 2013 Q-LIPID PANEL [...] Insured Coverage Start Date Coverage End Date [facility] [address] [address] [place] [address] [id number] CHITO DE LA ROSA Self - patient is the insured 7 Medical (General) History Medical History History ICD Code lumbar dic disease Surgical History Surgery Date(Month/Year) left arm rotator cuff tear repair orthroscopic knee surgery colonoscopy- 2012 tonsillectomy
--- OUTSIDE RECORDS SUMMARY | 2025-01-26 09:30 | XMS_ITS | Data Portability ---
Author Organization [place] - [facility], Allergy Address [address] [place] [address] Care Team Providers Care Power Press Operator Name Role Phone HECTOR BLANTON Primary Care Provider Assessment Encounter Date Assessment Date Assessment LastModified by Organization Details LastModified Time 08/25/2024 08/25/2024 MD in [place] (licensed) and patient in [place] using Doximity. (7 minutes) Reviewed imaging results [...] [email or web address] Cleveland Bae MD, [address] [facility] [address], [place], [address], 09:46:52 Procedures None recorded. Surgeries None recorded. Imaging CT, maxillofac ial, w/o contrast - please pay close attention to skull base to see if any erosion [email or web address] [facility] (Imaging), [address] [facility], [place], [address], 14:06:18 Medication Orders None recorded. Patient TargetsNo [...] contr ast No observ ation record ed. [facility] [address] [place], [address], 08/19/2024 12:46:37 08/21/19 25 08/19/2024 CT, maxil lofac ial, w/o contr ast No observ ation record ed. 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 Obtained sequences: sagittal T1, coronal T1, fat-saturated coronal T2, axial T1, fat-saturated axial T2, and post-contrast axial and coronal fat-saturated T1-weighted sequences as well as post contrast axial 3-D T1 VIBE. 15 mL Dotarem intravenous contrast was administered. COMPARISON: Maxillofacial CT performed 08/17/2023.. FINDINGS: SINUSES: There is a T2 hypointense mass with a few internal T2 hyperintense components mostly towards the right of midline which shows avid diffuse heterogeneous enhancement, including enhancement along the T2 hyperintense regions. It measures approximately 5.4 cm AP by 2.9 cm transverse by 5.2 cm superior-inferior, and to the right of midline, there is extension across the cribriform plate into the intracranial compartment with mass effect on the adjacent inferior frontal lobe though there is no definite parenchymal signal alteration in the frontal lobe. The postcontrast images are degraded by motion, but there appears to be asymmetric soft tissue thickening along both the vidian canal and foramen rotundum on the right suspicious for perineural tumor spread. There is associated bone destruction along the nasal septum, sphenoid septum, ethmoid air cells, cribriform plate, lamina papyracea, and planum sphenoidale all of which better assessed by the CT. There is also bowing of the otoole of the maxillary sinuses without clear obstruction, better seen by the CT. There is scattered paranasal sinus mucosal thickening with fluid in the bilateral maxillary sinuses, fluid in the sphenoid sinus, and complete opacification of the frontal sinuses likely secondary to obstruction by the mass. ORBITS: Right lens extraction noted. The globes are intact. The optic nerves, chiasm, and tracts demonstrate normal signal and course, with no abnormal enhancement. The extraocular muscles are symmetric and normal in signal and contour. The lacrimal glands are symmetric. Orbital fat is normal. Although there is bone destruction along the lamina papyracea, there is no definite soft tissue mass extending into the orbital fat. There is no intra-orbital mass, fluid collection, or abnormal enhancement. 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 EXTRACRANIAL SOFT TISSUES: Visualized extracranial soft tissues are unremarkable. BONES: Marrow signal is preserved. 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 Although the exam is degraded by motion, findings are suspicious for perineural spread along the right foramen rotundum and vidian canal. Differential considerations again include both sinonasal malignancy and olfactory neuroblastoma, favor sinonasal malignancy. 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 [...] o f uncertain behavior of respiratory tract 77492826 D38.6 Chronic sinusitis 695028 00 J32.8 Health Concerns Section Related Observation LastModified by Organization Detai ls LastModified Time None Recorded Concern Status LastModified by Organization Details LastModified Time None Recorded Advance Directives Directive None Recorded Payers Insurance Date Sequence Insurance Name Policy Number Policy Lanier Covered Member ID Lanier Member ID Guarantor Name 08/25/2024 1 [employer] (MEDICARE REPLACEMENT/ ADVANTAGE - PPO) [id number] Raghav Underwood [id number] Raghav Underwood 08/13/2024 1 [employer] (PPO) [id number] Raghav Underwood [id number] Raghav Underwood Notes Date Note Type Note [...] about 1 year SNOT=24Nose=55 LEON STARK MD [address] [place] [address], [phone], [facility] - [facility] 08/13/2024 14:03:49 08/25/2024 text/html MD in [place] (licensed[place] and patient in [place] using Zinc softwareity audio/video. Reviewed imaging results of CT and MRI showing large tumor in the region of the cribriform plate with intracranial extension.Also discussed case with Dr Bae at [facility] and reviewed images with him LEON STARK MD [address] [place] [address], [phone], [facility] - [facility] 08/25/2024 13:12:34
[2025-01-26 11:21] LABS: Appearance Urine Clear; Glucose Urine UA Negative (Negative); PH 6.0 (5.0-9.0); Specific Gravity - Urine <= 1.005 (1.005-1.025)
[2025-01-26 11:32] LABS: MANUAL DIFF FLAG NO
[2025-01-26 11:38] LABS: Hematocrit 34.2 % (42.0-52.0); Hemoglobin 11.6 g/dl (14.0-18.0); Imm Gran Abs Auto 0.07 X10*3/uL (0.00-0.03); Imm Gran Pct Auto 1.7 % (0.0-0.4); Lymphocytes Absolute Auto 1.5 X10*3/uL (1.2-4.9); Mean Corpuscular HGB Conc 33.9 g/dl (31.0-36.0); Mean Corpuscular Hemoglobin 29.7 pg (27.0-33.0); Mean Corpuscular Volume 87.7 fL (80.0-98.0); NRBC Abs Auto 0.000 X10*3/uL (0.0-0.012); NRBC Pct Auto 0.0 /100WBC (0.0-0.2); Platelet Count 276 X10*3/uL (160-400); Red Blood Count 3.90 X10*6/uL (4.60-5.80); White Blood Count 4.2 X10*3/uL (4.8-10.8)
[2025-01-26 12:11] LABS: Alanine Aminotransferase 13 U/L (0-40); Albumin Level 4.3 g/dL (3.5-5.0); Alkaline Phosphatase 76 U/L (39-117); Anion Gap 11 (12-20); Aspartate Amino Transferase 22 U/L (5-37); Blood Urea Nitrogen 12 mg/dL (9-16); Calcium 9.1 mg/dL (8.4-10.2); Carbon Dioxide 25 mmol/L (22-29); Chloride 104 mmol/L (96-108); Cholesterol 159 mg/dL (<200); Estimated Glomerular Filt Rate > 60; HDL Cholesterol 55 mg/dL (>40); Potassium 5.2 mmol/L (3.3-5.1); Sodium 135 mmol/L (135-145); Total Protein 7.0 g/dL (6.5-8.0); Triglycerides 91 mg/dL (<150)
[2025-01-26 12:20] LABS: Microalbum/Creatinine Ratio Ur 29.9 ug/mg cr (<30)
== END 2025-01-26 09:09 | disposition home or self-care (01) ==
LOC: HO.WFDLDS 09:08
PROVIDERS: Visit Provider Nurse Practitioner Family
DX: Z00.00 Encounter for general adult medical examination without abnormal findings (principal)
CPT/HCPCS: 36415; 80053; 80061; 81003; 82043; 82306; 82570; 84443; 85025

== ENCOUNTER 2025-02-01 14:57 | Outpatient (AMB) | payer MEDICARE, SELFPAY ==
--- NOTE | 2025-02-01 15:04 | A.OFFPC_ITS ---
Vital Signs 02/01/25 15:10 Height 5 ft 8 in Weight 172 lb 4 oz BMI 26.2 BP 122/57 L Blood Pressure Location Lt brachial Position Sitting Respiration 16 Pulse 64 Pulse Source Pulse Oximeter Temp 98.6 F Temp Source Oral Pulse Oximetry (%) 100 Oxygen Delivery Method Room Air Intake Visit Reasons: 2 mos CPE, labs review Intake Note: patient here for CPE and lab review Candle Wrapper Required: No Allergies No Known Allergies Allergy (Verified 02/01/25 15:26) Medication List - Last Reconciled 02/01/25 by Kathy Davenport CNP amlodipine 5 mg PO DAILY 90 days lisinopril 20 mg PO DAILY 90 days Tobacco use date assessed: 02/01/25 Fall risk assessment: No Falls in past year Last assessed Fall Risk: 02/01/25 Dental Screening Dental Screen Date: 02/01/25 Did you have a dental visit in the last 12 months?: Yes Did you have a dental problem in the last 6 months where you did not have access to dental care?: No Was dental information given to patient?: Patient has dentist HPI HPI Comments History of Present Illness Details 70-year-old male presents for an extende d physical exam and review of recent lab results. He admits to taking his medications as prescribed without adverse reactions. Acute issue(s) - None Past Medical History - include hpertension, hypercholesterole ciara, right-sided epistaxis, benign neoplasm of nasal cavity, arthritis of right knee, cataract right eye Social History - Former smoker, quit 5-6 years ago afte r smoking 1/2 pack intermittent for a total of 10 yrs.. Does not vape. Drinks 2 beers 1-2 times weekly. Denies recreational drug use - Has been making healthy dietary choice s. Exercises routinely. Generally sleep well Health maintenance - Last eye exam was a year ago with Dr. Rivas. Follow up recommended for routine eye exam. WIll request ophthalmology record - Last dental visit was a couple of matilda hs ago - Last Tdap unknown. [facility] - He notes that he is up-to-date on the shingles vaccines. Record not currently available - He has not been vaccinated for pneumon ia - Has not been vaccinated for the flu th season; declines vaccination - Last colonoscopy was with [facility] in 06/23: Tubular adenoma [facility] Medical History Cataract of right eye Carpal tunnel syndrome on both sides Surgical History Hx of appendectomy History of knee surgery History of arthroscopic surgery of shoulder Family History Father Stomach cancer Social History Housing: House Alcohol intake: current Comment: Not too bad. I can tell somebodys been in there pt states Patient Tobacco Use Status: Former Tobacco user Cigarette Packs Per Day: 0.5 Cigarettes Per Day: 10 Years Smoked: 20 e-Cigarette/Vaping Use: Never Used Second Hand Smoke Exposure: No service: No Current occupational status: retired Current occupational exposures/hazards: No Cognitive needs: No Hearing needs: No Vision needs: No Questionnaire PHQ-9 Over the last 2 weeks, how often have you been bothered by any of the following problems? 1. Little interest or pleasure in doing things: not at all 2. Feeling down, depressed, or hopeless: not at all 3. Trouble falling or staying asleep, or sleeping too much: not at all 4. Feeling tired or having little energy: not at all 5. Poor appetite or overeating: not at all 6. Feeling bad about yourself - or that you are a failure or have let yourself or your family down: not at all 7. Trouble concentrating on things, such as reading the newspaper or watching television: not at all 8. Moving or speaking so slowly that other people could have noticed. Or the opposite - being so fidgety or restless that you have been moving around a lot more than usual: not at all 9. Thoughts that you would be better off or of hurting yourself in some way: not at all Total score: 0 Depression Screening Interpretation: Negative Depression Screening Done: Yes 92661 - PHQ-9 Billing: Yes Source: Developed by Drs. Tucker Gastelum, Christine Akins, Bart Walker and colleagues, with an educational wu from [employer]. Thrive Questionnaire Date Thrive assessed: 02/01/25 I am a: Patient What is your living situation today?: I have a steady place to live Within the past 12 months, did the food you bought not last and you didn't have the money to get more?: Never true Within the past 12 months, did you worry whether your food would run out before you got money to buy more?: Never true Do you have trouble paying for medicines?: No Do you have trouble getting transportation to medical appointments?: No Do you have trouble paying your heating and electricity bill?: No Do you have trouble taking care of your child, family member or friend?: No Do you have trouble with day-to-day activities such as bathing, preparing meals, shopping, managing finances, etc.?: No Are you currently unemployed and looking for a job?: No Are you interested in more education?: No Please select the resources that you would like help with: None Currently or been in a relationship where the following occur: No concerns reported THRIVE Score: 0 AUDIT C Alcohol Use Questionnaire (AUDIT-C) 1. How often do you have a drink containing alcohol?: 2-3 times a week 2. How many drinks containing alcohol do you have on a typical day when you are drinking?: 1 or 2 3. How often do you have six or more drinks on one occasion?: Less than monthly Total Score: 4 Score Reviewed/Action Taken: Yes SHANON-7 AMB Questionnaire SHANON-7 Date SHANON - 7 assessed: 02/01/25 Feeling nervous, anxious, or on edge: 0 = Not at all Not being able to stop or control worryin = Not at all Worrying too much about different things: 0 = Not at all Trouble relaxin = Not at all Being so restless that it is hard to sit still: 0 = Not at all Becoming easily annoyed or irritable: 0 = Not at all Feeling afraid as if something awful might happen: 0 = Not at all Total SHANON-7 score (0-4 normal; 5-9 mild; 10-14 moderate; 15-21 severe): 0 Source: Developed by Drs. Tucker Gastelum, Christine Akins, Bart Walker and colleagues, with an educational wu from [employer]. SHANON-7 Assessment Billing SHANON-7 Assessment Tool: SHANON-7 Assessment 13499 Review of Systems Const Details: Denies chills, Denies fatigue, Denies fever(s), Denies headache(s) and Denies weakness HEENT Denies change in vision, Denies dizziness, Denies headache(s), Denies hearing loss, Denies nasal congestion, Denies sinus pain, Denies sinus pressure and Denies sore throat Card Denies chest pain, Denies lightheadedness, Denies dyspnea and Denies other (palpitations) Resp Denies cough, Denies dyspnea and Denies wheezing GI Denies abdominal pain, Denies melena, Denies hematochezia, Denies change in bowel habits, Denies dyspepsia and Denies nausea Denies hematuria and Denies dysuria Musc Denies abnormal gait, Denies myalgias, Denies arthralgias, Denies numbness and Denies tingling Skin/Breast Denies rash, Denies unusual bruising and Denies wounds Neuro Denies abnormal gait, Denies dizziness, Denies headache(s), Denies memory loss, Denies numbness, Denies Sensory deficit (Neuro), Denies tingling and Denies weakness Psych Denies anxiety, Denies depression and Denies memory loss Endo Denies cold intolerance, Denies fatigue, Denies heat intolerance, Denies polydipsia and Denies polyuria Damon/Lymph Denies easy bleeding and Denies easy bruising Aller/Immun Denies wheezing Physical exam (Primary Care) Vital Signs: Last Vital Signs Temp 98.6 F 02/01/25 15:10 Pulse 64 02/01/25 15:10 Resp 16 02/01/25 15:10 BP 122/57 L 02/01/25 15:10 Pulse Ox 100 02/01/25 15:10 Oxygen Delivery Method Room Air 02/01/25 15:10 BMI result Body Mass Index 26.2 Tobacco/Smoking Status: Tobacco use Status Tobacco use date assessed 02/01/25 02/01/25 15:10 Patient Tobacco Use Status Former Tobacco user 02/01/25 15:06 e-Cigarette/Vaping Use Never Used 02/01/25 15:06 PHQ-9: PHQ-9 Score PHQ-9: Total score 0 02/01/25 15:15 Depression Screening Interpretation: Negative Thrive Assessment: Date of Thrive Assessment Date Thrive assessed 02/01/25 02/01/25 15:15 Currently or been in a relationship where the following occur: No concerns reported Const Other: General: no acute distress, well developed, alert and awake Nutritional Appearance: well nourished Orientation/consciousness: patient oriented x3 [facility] Head: Yes normocephalic and Yes atraumatic Ears: hearing grossly normal bilaterally and TM's normal bilaterally General nose exam: Normal external nose present and Normal nares present Mouth: Normal oral and palatal mucosa present and moist mucous membranes Teeth and gingiva: dentition normal Throat: Yes oropharynx normal Eyes Pupils: Equal, round and reactive pupils present and Pupil accommodation reflex normal EOM: EOMs intact bilaterally Neck Neck: Yes normal visual inspection, Yes no lymphadenopathy and Yes trachea midline Thyroid: Thyroid normal Carotids: no bruits Lymphatic: no lymphadenopathy noted Chest Chest palpation & inspection: normal inspection of the chest Resp Effort & Inspection: normal respiratory effort Auscultation: clear to auscultation bilaterally Cardio Rate: regular rate Rhythm: regular rhythm Heart sounds: S1 normal heart sound present, S2 normal heart sound present, no gallops, no murmurs and no rubs Bruits: no abdominal aortic bruits and no carotid bruits GI Palpation (GI): No Abdominal aortic bruit present, Soft to palpation, nontender, No hepatosplenomegaly present and No Rebound tenderness present Auscultation: normal bowel sounds General: Yes no CVA tenderness Back/Spine/Pelvis Back: no CVA tenderness Cervical Spine: cervical ROM normal and No Cervical spine tenderness Thoracic/Lumbar Spine: thoraco-lumbar ROM normal, No pain with thoraco-lumbar ROM, No thoracic spinal tenderness and No lumbar spinal tenderness Skin General: warm and dry. Normal skin color. Normal skin turgor Lesions: no lesions Rashes: no rashes Trauma: no lacerations or abrasions Wounds: no wounds Nails: normal Neuro General: patient oriented x3, gait normal and CN's II-XI intact bilaterally Cranial nerves: Yes Equal, round and reactive pupils present Cognition (Neuro): normal cognition Gait exam (Neuro): Normal gait present Motor exam (neuro): 5/5 motor strength present throughout Sensory Exam: No Sensory deficit (Neuro) Deep tendon reflexes (DTR's): Right patellar reflex intensity grade: 2+ and Left patellar reflex intensity grade: 2+ Extrem General: Yes normal to inspection, No edema and No calf tenderness Psych Appearance: grossly normal Affect: normal affect Attitude: cooperative Thought process: Normal thought process present Coding Level of Care Code Est Pt Level 3 (13499) Est Pt Prev Care >65y(30719) Diagnoses Normal physical examination, routine Z00.00 Primary hypertension I10 Hypertension type: primary hypertension Hyperkalemia E87.5 Normocytic anemia D64.9 Leukopenia D72.819 Vaccine counseling Z71. Additional Codes SHANON-7 Assessment Billing - SHANON-7 Assessment Tool: SHANON-7 Assessment 85186 ([id number]) PHQ-9 - 43460 - PHQ-9 Billing: Yes ([id number]) Assessment & Plan Assessment & Plan (1) Normal physical examination, routine: Code(s): Z00.00 - Encounter for general adult medical examination without abnormal findings Category: Medical Plan: No significant functional limitations noted. Continue current treatment regimen. Healthy diet and routine exercise encouraged. Follow-up as planned. Verbalized understanding and agreed with the treatment plan. (2) Hypertension: Code(s): I10 - Essential (primary) hypertension Category: Medical Qualifiers: Hypertension type: primary hypertension Qualified Code(s): I10 - Essential (primary) hypertension Plan: Blood pressure is 122/70, within goal of less than 140/90. Continue current treatment regimen. Low-sodium diet encouraged. Follow-up in 3 months or sooner with symptoms or concerns. Verbalized understanding and agreed with the plan. (3) Hyperkalemia: Code(s): E87.5 - Hyperkalemia Category: Medical Plan: Recent potassium level is slightly elevated, 5.2. Will recheck potassium levels and make changes as needed. (4) Normocytic anemia: Code(s): D64.9 - Anemia, unspecified Category: Medical Plan: Recent RBC and H&H were slightly low, 3.90 and 11.6/34.2 respectively. Will recheck CBC and check iron profile, ferritin, vitamin B12, and folate levels. (5) Leukopenia: Code(s): D72.819 - Decreased white blood cell count, unspecified Category: Medical Plan: Recent WBC is slightly low, 4.2. Equivocal. Will check vitamin B12 and folate levels. (6) Vaccine counseling: Code(s): Z71.85 - Encounter for immunization safety counseling Category: Medical Plan: He has not been vaccinated for pneumonia. instructed on importance of vaccinations and encouraged to get vaccinated for pneumonia. He may get the vaccine from the local pharmacy. Verbalized understanding and agreed with the plan. Orders: Orders Ferritin Today D64.9 - Anemia, unspecified Vitamin B12 and Folate Today D64.9 - Anemia, unspecified, D72.819 - Decreased white blood cell count, unspecified IRON PROFILE Today D64.9 - Anemia, unspecified Complete Blood Count no Diff Today D64.9 - Anemia, unspecified, D72.819 - Decreased white blood cell count, unspecified Potassium Today E87.5 - Hyperkalemia
[2025-02-01 15:10] VITALS: BP 122/57; PULSE 64; RESP 16; TEMP 37; O2SAT 100; BMI 26.2
--- OUTSIDE RECORDS SUMMARY | 2025-02-01 15:42 | XMS_ITS | Patient Health Record ---
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
--- OUTSIDE RECORDS SUMMARY | 2025-02-01 15:42 | XMS_ITS | Data Portability ---
Author Organization [place] - [facility], Allergy Address [address] [place] [address] Care Team Providers Care Superior Court Judge Name Role Phone HECTOR BLANTON Primary Care Provider [phone] Assessment Encounter Date Assessment Date Assessment LastModified by Organization Details LastModified Time 08/25/2024 08/25/2024 MD in [place] (licensed) and patient in [place] using Doximity. (7 minutes) Reviewed imaging results [...] [email or web address] Cleveland Bae MD, [address] [facility] [address], [place], [address], 09:46:52 Procedures None recorded. Surgeries None recorded. Imaging CT, maxillofac ial, w/o contrast - please pay close attention to skull base to see if any erosion 2024 025 [email or web address] [facility] (Imaging), [address], [place], [address], 14:06:18 Medication Orders None recorded. Patient TargetsNo [...] contr ast No observ ation record ed. [employer] [address] [place], [address], 08/19/2024 12:46:37 08/21/19 25 08/19/2024 CT, maxil lofac ial, w/o contr ast No observ ation record ed. 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 T2 hyperi ntense compon ents mostly [...] Electr onical ly Signed By: Marilee rincon [facility] ([facility]) [address], [place], [address], 08/26/2024 11:03:30 Result Notes Documentation Provider Name and Address Organization Details Recorded Time Mri, Head + Neck + Orbits, W/wo Contrast : [facility] Number: [id number] Patient Name: Raghav Underwood Date of : 1955 Date of Exam: 08-22-2024 Referring Physician: Leon Stark [facility] [address] [place] [address] Exam: MR Orbits, Face, Neck (C-/C+) CPT 54041 Room Description: [facility] Espr 1.5 MR Orbits, Face, Neck (C-/C+) CPT 22463 - Neoplasm of uncertain behavior of respiratory [...] mota [place] - [facility] 08/26/2024 11:03:30 Problems Name Problem SNOMED Code Status Onset Date Resolution Date Notes Provider Name and Address Organization Details Recorded Time 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 2024 LEON EDDY MD [address] [place] [address], [place], [phone], [facility] - [facility] 10:09:53 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 Medical [...] Emphysema N Migraines N Thyroid Problems N Depression N COPD N Developmental Delay N Glaucoma N Nasal or Sinus Problems Y Anemia N Immune System Disorder N Anesthesia Complications N Heart Attack ([place]) N Other Skin Condition N Diabetes N Rhinitis N Bleeding Disorder N Food Allergy N Hearing Loss N Arthritis N Hyperlipidemia N Cancer N Stroke N Dementia N Nasal polyps Y Asthma N Sleep Disorder N High Cholesterol N GERD/Reflux N Liver Disease N Headaches N Fibromyalgia N Hypertension Y Speech Delay N Kidney Disease N Past Encounters Encounter ID Performer Location Encounter Start Date Encounter Closed Date Diagnosis/Indication Diagnosis SNOMED-CT Code Diagnosis ICD10 Code Diagnosis Note [id number] LEON BELLO MD [facility] [address] [address] 08/13/2024 09:20:44 08/13/2024 12:32:28 Polyp of nasal cavity 664736542 J33.0 Patient with history of nasal polyps [...] o f uncertain behavior of respiratory tract 35973043 D38.6 Chronic sinusitis 689460 00 J32.8 [id number] LEON BELLO MD [facility] [address] [address] 08/25/2024 12:48:04 08/25/2024 14:23:48 Polyp of nasal cavity 692733404 J33.0 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 [...] o f uncertain behavior of respiratory tract 61190644 D38.6 Chronic sinusitis 731146 00 J32.8 Health Concerns Section Related Observation LastModified by Organization Detai ls LastModified Time None Recorded Concern Status LastModified by Organization Details LastModified Time None Recorded Advance Directives Directive None Recorded Payers Insurance Date Sequence Insurance Name Policy Number Policy [place] Covered Member ID [place] Member ID Guarantor Name 08/25/2024 1 [employer] (MEDICARE REPLACEMENT/ ADVANTAGE - PPO) [id number] Raghav Underwood [id number] Raghav Underwood 08/13/2024 1 [employer] (PPO) [id number] Raghav Underwood [id number] Raghav Underwood Notes Date Note Type Note [...] about 1 year SNOT=24Nose=55 LEON STARK MD [address] [place] [address], [phone], [facility] - [facility] 08/13/2024 14:03:49 08/25/2024 text/html MD in [place] (lic[place] and patient in [place] using Clickoity audio/video. 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
== END 2025-02-01 15:48 | disposition home or self-care (01) ==
LOC: HO.HMCFM 14:57
PROVIDERS: PCP Nurse Practitioner Family; Visit Provider Nurse Practitioner Family
DX: Z00.00 Encounter for general adult medical examination without abnormal findings (principal); I10 Essential (primary) hypertension; E87.5 Hyperkalemia; D64.9 Anemia, unspecified; D72.819 Decreased white blood cell count, unspecified; Z71.85 Encounter for immunization safety counseling

== ENCOUNTER → 2025-02-01 14:57 | Outpatient (BNVA) | payer MEDICARE, SELFPAY | PROVIDERS: PCP Nurse Practitioner Family; Visit Provider Nurse Practitioner Family | DX: Z00.00 Encounter for general adult medical examination without abnormal findings (principal); I10 Essential (primary) hypertension; E87.5 Hyperkalemia; D64.9 Anemia, unspecified; D72.819 Decreased white blood cell count, unspecified; Z71.85 Encounter for immunization safety counseling | CPT/HCPCS: 96127; 99212; 99397 ==

== ENCOUNTER 2025-05-05 15:13 | Outpatient (REF) | payer MEDICARE, SELFPAY ==
[2025-05-05 18:42] LABS: Hematocrit 37.7 % (42.0-52.0); Hemoglobin 12.5 g/dl (14.0-18.0); Mean Corpuscular HGB Conc 33.2 g/dl (31.0-36.0); Mean Corpuscular Hemoglobin 30.0 pg (27.0-33.0); Mean Corpuscular Volume 90.6 fL (80.0-98.0); NRBC Abs Auto 0.000 X10*3/uL (0.0-0.012); NRBC Pct Auto 0.0 /100WBC (0.0-0.2); Platelet Count 328 X10*3/uL (160-400); Red Blood Count 4.16 X10*6/uL (4.60-5.80); White Blood Count 7.1 X10*3/uL (4.8-10.8)
[2025-05-05 19:23] LABS: Iron 87 mcg/dL (45-160); Percent Iron Saturation 31 % (15-50); Potassium 4.7 mmol/L (3.3-5.1); Total Iron Binding Capacity 280 mcg/dL (228-428); Unsaturated Iron Binding 193 ug/dL
[2025-05-05 19:45] LABS: Ferritin 120 ng/mL (20-250); Folate 10.3 ng/mL (> or = 4.0); Vitamin B12 257 pg/mL (200-900)
--- OUTSIDE RECORDS SUMMARY | 2025-05-05 21:28 | XMS_ITS | Patient Health Record ---
Author Organization [facility] Address [address] [address] Care Team Providers Care Cinder Man Name Role Phone BEULAH DUMONT Primary Care [...] W/U Status Risk Notes Problem Lumbar sprain (712609570) Sprain of ligaments of lumbar spine, initial encounter (S33.5XXA) Active confirmed Problem Lumbosacral spondylosis without myelopathy (disorder) (69765748) Spondylosis without myelopathy or radiculopathy, lumbosacral region [...] Insured Coverage Start Date Coverage End Date [facility] [address] [address] [place] [address] [id number] CHITO DE LA ROSA Self - patient is the insured 7 Medical (General) History Medical History History ICD Code lumbar dic disease Surgical History Surgery Date(Month/Year) left arm rotator cuff tear repair orthroscopic knee surgery colonoscopy- 2012 tonsillectomy
--- OUTSIDE RECORDS SUMMARY | 2025-05-05 21:28 | XMS_ITS | Data Portability ---
Author Organization [place] - [facility], Allergy Address [address] [place] [address] Care Team Providers Care Otorhinolaryngologist Name Role Phone HARVINDERHECTOR WING Primary Care Provider Assessment Encounter Date Assessment Date Assessment LastModified by Organization Details LastModified Time 08/25/2024 08/25/2024 MD in [place] (licensed) and patient in [place] using [employer]. 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 The patient is healing well, with favorable pathology results despite prior intracranial extension observed on imaging. The patient will be monitored with a telescope for ongoing evaluation of the nasal cavity. The provider recommends initiating saltwater nasal rinses to address crusting and residual scabbing in the nasal cavity. A rinse kit, including a squeeze bottle and salt packets, will be provided to the patient. Suggest using distilled water for the rinses. I removed a large scab from the nasal cavity during the visit and noted residual swelling between the sphenoid sinuses, which will be monitored for potential inflammation. The patient is instructed to perform nasal rinses at home to aid in healing and reduce discomfort. The patient is advised to continue monitoring symptoms and report any changes or concerns promptly. Procedure Documentation: - Removal of large scab from the nasal cavity. 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 The examination today demonstrates no evidence of recurrence of papilloma or warts. The sphenoid sinus remains wide open, with some crusting noted superiorly. The patient is advised to continue using the Roberto Med Sinus Rinse with distilled water once daily to maintain nasal hygiene and prevent crusting. FOLLOW-UP: The patient is scheduled to return for follow-up in four months to monitor for any recurrence or complications. [email or web address] Not available 04/12/2025 09:22:12 Plan of Treatment Reminders Order Date Submit Date Provider Last Modified By Organization Details Last Modified Time Details Appointments Establish ed 15 2024 02:00P M IAN DOMINGUEZ Not available Not available Not available Establish ed 15 2024 02:15P M Bonifacio Bradshaw DO Not available Not available Not available Establish ed 30 2025 01:30P M LEON EDDY MD Not available Not available Not available Lab None recorded. Referral rhinology referral 2024 025 [email or web address] Cleveland Bae MD, [address] [facility] [address], [place], [address], 09/24/2024 09:46:52 Procedures None recorded. Surgeries None recorded. Imaging CT, maxillofa cial, w/o contrast - please pay close attention to skull base to see if any erosion 2024 025 [email or web address] [facility] (Imaging), [address] [place], [address], 08/13/2024 14:06:18 Medication Orders None recorded. Patient TargetsNo targets recorded. Patient Instructions Encounter Date Encounter Id Patient Instructions Last Modified By Organization Details Last Modified Time 02/25/2025 [id number] - Perform saltwater nasal rinses at home using the provided rinse kit. - Use distilled water for nasal rinses. - Monitor symptoms and report any changes or concerns promptly. [email or web address] Not available 02/25/2025 08:56:22 Please note: Parts of this encounter note have been generated by AI based on audio conversation. Patient consent was required prior to utilizing this technology. Content review was required prior to finalizing the note. [email or web address] Not available 02/25/2025 08:56:22 04/12/2025 [id number] Continue using NilMed Sinus Rinse with distilled water once daily. Return for follow-up in four months. [email or web address] Not available 04/12/2025 09:21:19 Please note: Parts of this encounter note have been generated by AI based on audio conversation. Patient consent was required prior to utilizing this technology. Content review was required prior to finalizing the note. liam Not available 04/12/2025 09:21:19 Reason for Referral Rhinology Referral for Polyp [...] contr ast No observ ation record ed. [address] [place], [address], 08/19/2024 12:46:37 08/21/19 25 08/19/2024 CT, maxil lofac ial, w/o contr ast No observ ation record ed. [email or web address] Not Available 01/2025 10:34:57 08/25/19 25 08/22/2024 MRI, head + neck + orbit s, w/wo contr ast [facility] Access ion Number : [id number] Name: Bobby Underwood Medica l Record Number : [id number] Date of : 1954 Date of Exam: 2024 Referr ing Physic silke: Macie rangel , [facility] [address] [place] [address] Exam: MR Orbits , Face, Neck (C-/C+ ) CPT 36876 Room Descri ption: [place] [facility] 1.5 MR Orbits , Face, Neck (C-/C+ ) CPT 83961 - Neopla sm of uncert ain behavi [...] T2 hypoin tense mass with a few policy intern al T2 hyperi ntense compon ents [...] rincon [facility] ([facility]) [address], [place], [address], 08/26/2024 11:03:30 02/23/20 25 02/18/2025 MRI, brain + brain stem, w/wo contr ast [facility] Access ion Number : [id number] Name: Bobby Underwooda hailey Record Number : [id number] Date of : 1954 Date of Exam: 2024 Referr ing Physic silke: Macie rangel , Leon [facility] [address] [place] [address] Exam: MR Brain (C-/C+ ) CPT 84136 Room Descri ption: [facility] Verio 3.0T MR Orbits , Face, Neck (C-/C+ ) CPT 32528, MR Brain (C-/C+ ) CPT 14594 INDICA TION / CLINIC AL QUESTI ON: Reason For Exam: D36.9 - Benign neopla sm, unspec ified site, , UNMAPP ED LAB (MRI, BRAIN + ORBITS , W/WO CONTRA ST) Reason For Exam: D36.9 - Benign neopla sm, unspec ified site, , UNMAPP ED LAB (MRI, BRAIN + ORBITS , W/WO CONTRA ST) esequiel Abernathy rd Depart ment Protoc ol TECHNI QUE: MRI of the brain was perfor med with and withou t contra st utiliz ing sagitt al and axial T1, axial T2, axial FLAIR, axial SWI, and axial DWI sequen keyon, and post-c ontras t 3D T1 VIBE with multip lanar reform ats. And MRI focuse d on the sinuse s was perfor med utiliz ing sagitt al T1, fat satura marianna fernandez l T2, fernandez l T1, axial T1, and axial fat satura marinana T2 sequen keyon follow ed by postco ntrast fat satura marianna axial and fernandez l T1-alyce ghted sequen keyon. 10 mL Elucir em intrav enous contra st was admini stered . COMPAR PORTIA: Maxill ofacia l MRI perfor med 08/22/19 25. FINDIN GS: MRI BRAIN: BRAIN and EXTRA- AXIAL SPACES : Please see below regard ing findin gs in the inferi or fronta l lobes relate d to the maxill ofacia l resect ion. There is mild promin ence of the ventri cles and sulci reflec ting volume loss. There are scatte red areas of nonspe cific FLAIR hyperi ntensi ty in the white matter most likely reflec ting chroni c small vessel diseas e. 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 Small chroni c lacuna r infarc ts in the bilate ral cerebe llar hemisp heres. No diffus ion abnorm ality to indica te acute infarc tion. There is dural thicke iliana and enhanc ement subjac ent to the surgic al site which is nonspe cific. Smooth areas of enhanc ement probab ly reflec t postsu rgical change adjace nt to a bifron hussein superi or cranio miguel a site. Areas inferi stephania along the floor of the anteri or crania l fossa anteri or to the fronta l lobes are in contin uity with soft tissue thicke iliana along the sinona ayleen Rufen olfact ory groove s. No eviden ce of acute or subacu te infarc tion. There is no hemorr soheila, midlin e shift, or mass effect . There is no extra- axial collec tion. Flow voids are preser edita in the domina nt intrac ranial vessel s. EXTRAC RANIAL SOFT TISSUE S: Orbits are unrema rkable with right lens extrac tion noted. See below regard ing postsu rgical findin gs in the sinuse s. BONES: Marrow signal is preser edita. 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 Enhanc ing tissue along the sinona ayleen roof and olfact ory groove s is demons trated which measur es up to a maximu m of 8 mm in thickn ess to the left of midlin e on image 20 of series 7. The nasal septum , most of the ethmoi ds, and the anteri or wall the spheno id sinus have been resect ed. There is mucosa l thicke iliana which remain s in the maxill tito sinuse s, along the margin s of the spheno id sinus, the remain ing ethmoi d air cells, and there is comple te opacif icatio n of the fronta l sinuse s where there are also post surgic al change s. Enhanc ement again extend s along the dura at the level of the olfact ory groove s, and there is now enceph alomal acia anteri or inferi or fronta l lobes mostly along the gyrus rectus bilate rally, left greate r than right. There is a T2 hyperi ntense region along the right anteri or fronta l lobe with hemosi jessie staini ng of demons trated on the MRI sequen keyon of the brain as well as enhanc ement likely reflec ting a postsu rgical area of enceph alomal acia with postop erativ e blood produc ts. Postsu rgical change s of bifron hussein cranio miguel a with smooth appear ing dural thicke iliana and enhanc ement at the upper portio n of the cranio miguel a site which is probab ly postop erativ e. There contin ues to be asymme tric enhanc ement along the right forame n rotund um and vidian canal, for exampl e image 17 series 8 at the forame n rotund um. IMPRES TELMA: Postsu rgical change s from bifron hussein cranio miguel a and maxill ofacia l resect ion. 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 There is residu al soft tissue thicke iliana and enhanc ement along the sinona ayleen root extend ing along the olfact ory groove s. This is nonspe cific and could reflec t postsu rgical change s and/or residu al tumor. There also contin ues to be some asymme tric enhanc ement along the forame n rotund um and vidian canal, where perine ural tumor is not exclud ed, and this should be correl ated with histol jeff fiore gs relate d to the resect ed tumor. Follow -up is recomm ended to assess stabil ity. Multip le chroni c lacuna r infarc ts in the cerebe llar hemisp here. Nonspe cific white matter signal change s which most likely reflec t chroni c small vessel diseas e. Electr onical ly Signed By: Marilee serna[address] [place] [address] [facility]) [address], [place], [address], 02/24/2025 12:28:20 02/23/20 25 02/18/2025 MRI, head + neck + orbit s, w/wo contr ast [facility] Access ion Number : [id number] Name: Bobby Underwooda hailey Record Number : [id number] Date of : 1954 Date of Exam: 2024 Referr ing Physic silke: Macie rangel , Leon [facility] [address] [place] [address] Exam: MR Orbits , Face, Neck (C-/C+ ) CPT 92770 Room Descri ption: [facility] Ver 3.0T MR Orbits , Face, Neck (C-/C+ ) CPT 30531, MR Brain (C-/C+ ) CPT 38475 INDICA TION / CLINIC AL QUESTI ON: Reason For Exam: D36.9 - Benign neopla sm, unspec ified site, , UNMAPP ED LAB (MRI, BRAIN + ORBITS , W/WO CONTRA ST) Reason For Exam: D36.9 - Benign neopla sm, unspec ified site, , UNMAPP ED LAB (MRI, BRAIN + ORBITS , W/WO CONTRA ST) lindas t - Standa rd Depart ment Protoc ol TECHNI QUE: MRI of the brain was perfor med with and withou t contra st utiliz ing sagitt al and axial T1, axial T2, axial FLAIR, axial SWI, and axial DWI sequen keyon, and post-c ontras t 3D T1 VIBE with multip lanar reform ats. And MRI focuse d on the sinuse s was perfor med utiliz ing sagitt al T1, fat satura marianna fernandez l T2, fernandez l T1, axial T1, and axial fat satura marianna T2 sequen keyon follow ed by postco ntrast fat satura marianna axial and fernandez l T1-alyce ghted sequen keyon. 10 mL Elucir em intrav enous contra st was admini stered . COMPAR PORTIA: Maxill ofacia l MRI perfor med 08/22/19 25. FINDIN GS: MRI BRAIN: BRAIN and EXTRA- AXIAL SPACES : Please see below regard ing findin gs in the inferi or fronta l lobes relate d to the maxill ofacia l resect ion. There is mild promin ence of the ventri cles and sulci reflec ting volume loss. There are scatte red areas of nonspe cific FLAIR hyperi ntensi ty in the white matter most likely reflec ting chroni c small vessel diseas e. 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 Small chroni c lacuna r infarc ts in the bilate ral cerebe llar hemisp heres. No diffus ion abnorm ality to indica te acute infarc tion. There is dural thicke iliana and enhanc ement subjac ent to the surgic al site which is nonspe cific. Smooth areas of enhanc ement probab ly reflec t postsu rgical change adjace nt to a bifron hussein superi or cranio miguel a site. Areas inferi stephania along the floor of the anteri or crania l fossa anteri or to the fronta l lobes are in contin uity with soft tissue thicke iliana along the sinona ayleen Rufen olfact ory groove s. No eviden ce of acute or subacu te infarc tion. There is no hemorr soheila, midlin e shift, or mass effect . There is no extra- axial collec tion. Flow voids are preser edita in the domina nt intrac ranial vessel s. EXTRAC RANIAL SOFT TISSUE S: Orbits are unrema rkable with right lens extrac tion noted. See below regard ing postsu rgical findin gs in the sinuse s. BONES: Marrow signal is preser edita. 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 Enhanc ing tissue along the sinona ayleen roof and olfact ory groove s is demons trated which measur es up to a maximu m of 8 mm in thickn ess to the left of midlin e on image 20 of series 7. The nasal septum , most of the ethmoi ds, and the anteri or wall the spheno id sinus have been resect ed. There is mucosa l thicke iliana which remain s in the maxill tito sinuse s, along the margin s of the spheno id sinus, the remain ing ethmoi d air cells, and there is comple te opacif icatio n of the fronta l sinuse s where there are also post surgic al change s. Enhanc ement again extend s along the dura at the level of the olfact ory groove s, and there is now enceph alomal acia anteri or inferi or fronta l lobes mostly along the gyrus rectus bilate rally, left greate r than right. There is a T2 hyperi ntense region along the right anteri or fronta l lobe with hemosi jessie staini ng of demons trated on the MRI sequen keyon of the brain as well as enhanc ement likely reflec ting a postsu rgical area of enceph alomal acia with postop erativ e blood produc ts. Postsu rgical change s of bifron hussein cranio miguel a with smooth appear ing dural thicke iliana and enhanc ement at the upper portio n of the cranio miguel a site which is probab ly postop erativ e. There contin ues to be asymme tric enhanc ement along the right forame n rotund um and vidian canal, for exampl e image 17 series 8 at the forame n rotund um. IMPRES TELMA: Postsu rgical change s from bifron hussein cranio miguel a and maxill ofacia l resect ion. 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 There is residu al soft tissue thicke iliana and enhanc ement along the sinona ayleen root extend ing along the olfact ory groove s. This is nonspe cific and could reflec t postsu rgical change s and/or residu al tumor. There also contin ues to be some asymme tric enhanc ement along the forame n rotund um and vidian canal, where perine ural tumor is not exclud ed, and this should be correl ated with histol jeff fiore gs relate d to the resect ed tumor. Follow -up is recomm ended to assess stabil ity. Multip le chroni c lacuna r infarc ts in the cerebe llar hemisp here. Nonspe cific white matter signal change s which most likely reflec t chroni c small vessel diseas e. Electr onical ly Signed By: Marilee SULTANA [facility] ([facility]) [address], [place], [address], 03/02/2025 09:06:33 Result Notes Documentation Provider Name and Address Organization Details Recorded Time Mri, Head + Neck + Orbits, W/wo Contrast : [facility] [place] Accession Number: [id number] Patient Name: Raghav Underwood Date of : 1955 Date of Exam: 08-22-2024 Referring Physician: Leon Stark [facility] [address] [place] [address] Exam: MR Orbits, Face, Neck (C-/C+) CPT 96277 Room Description: [facility] Espr 1.5 MR Orbits, Face, Neck (C-/C+) CPT 82022 - Neoplasm of uncertain behavior of respiratory [...] mota [place] - [facility] 08/26/2024 11:03:30 Mri, Brain + Brain Stem, W/wo Contrast : [facility] Accession Number: [id number] Patient Name: Raghav Underwood Date of : 1955 Date of Exam: 02-18-2025 Referring Physician: Leon Stark [facility] N[facility] [address] [place] [address] Exam: MR Brain (C-/C+) CPT 38361 Room Description: [facility] 3.0T MR Orbits, Face, Neck (C-/C+) CPT 51778, MR Brain (C-/C+) CPT 12867 INDICATION / CLINICAL QUESTION: Reason For Exam: D36.9 - Benign neoplasm, unspecified site, , UNMAPPED LAB (MRI, BRAIN + ORBITS, W/WO CONTRAST) Reason For Exam: D36.9 - Benign neoplasm, unspecified site, , UNMAPPED LAB (MRI, BRAIN + ORBITS, W/WO CONTRAST) [facility] Protocol TECHNIQUE: MRI of the brain was performed with and without contrast utilizing sagittal and axial T1, axial T2, axial FLAIR, axial SWI, and axial DWI sequences, and post-contrast 3D T1 VIBE with multiplanar reformats. And MRI focused on the sinuses was performed utilizing sagittal T1, fat saturated coronal T2, coronal T1, axial T1, and axial fat saturated T2 sequences followed by postcontrast fat saturated axial and coronal T1-weighted sequences. 10 mL Elucirem intravenous contrast was administered. COMPARISON: Maxillofacial MRI performed 08/22/2024. FINDINGS: MRI BRAIN: BRAIN and EXTRA-AXIAL SPACES: Please see below regarding findings in the inferior frontal lobes related to the maxillofacial resection. There is mild prominence of the ventricles and sulci reflecting volume loss. There are scattered areas of nonspecific FLAIR hyperintensity in the white matter most likely reflecting chronic small vessel disease. Inferior frontal lobe encephalomalacia as described further below. Small chronic lacunar infarcts in the bilateral cerebellar hemispheres. No diffusion abnormality to indicate acute infarction. There is dural thickening and enhancement subjacent to the surgical site which is nonspecific. Smooth areas of enhancement probably reflect postsurgical change adjacent to a bifrontal superior craniotomy site. Areas inferiorly along the floor of the anterior cranial fossa anterior to the frontal lobes are in continuity with soft tissue thickening along the sinonasal Rufen olfactory grooves. No evidence of acute or subacute infarction. There is no hemorrhage, midline shift, or mass effect. There is no extra-axial collection. Flow voids are preserved in the dominant intracranial vessels. EXTRACRANIAL SOFT TISSUES: Orbits are unremarkable with right lens extraction noted. See below regarding postsurgical findings in the sinuses. BONES: Marrow signal is preserved. 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 Enhancing tissue along the sinonasal roof and olfactory grooves is demonstrated which measures up to a maximum of 8 mm in thickness to the left of midline on image 20 of series 7. The nasal septum, most of the ethmoids, and the anterior wall the sphenoid sinus have been resected. There is mucosal thickening which remains in the maxillary sinuses, along the margins of the sphenoid sinus, the remaining ethmoid air cells, and there is complete opacification of the frontal sinuses where there are also post surgical changes. Enhancement again extends along the dura at the level of the olfactory grooves, and there is now encephalomalacia anterior inferior frontal lobes mostly along the gyrus rectus bilaterally, left greater than right. There is a T2 hyperintense region along the right anterior frontal lobe with hemosiderin staining of demonstrated on the MRI sequences of the brain as well as enhancement likely reflecting a postsurgical area of encephalomalacia with postoperative blood products. Postsurgical changes of bifrontal craniotomy with smooth appearing dural thickening and enhancement at the upper portion of the craniotomy site which is probably postoperative. There continues to be asymmetric enhancement along the right foramen rotundum and vidian canal, for example image 17 series 8 at the foramen rotundum. IMPRESSION: Postsurgical changes from bifrontal craniotomy and maxillofacial resection. The previous heterogeneous sinonasal masses resection. There is residual soft tissue thickening and enhancement along the sinonasal root extending along the olfactory grooves. This is nonspecific and could reflect postsurgical changes and/or residual tumor. There also continues to be some asymmetric enhancement along the foramen rotundum and vidian canal, where perineural tumor is not excluded, and this should be correlated with histologic findings related to the resected tumor. Follow-up is recommended to assess stability. 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 Nonspecific white matter signal changes which most likely reflect chronic small vessel disease. Electronically Signed By: Marilee mota [place] - [facility] 02/24/2025 12:28:20 Mri, Head + Neck + Orbits, W/wo Contrast : [facility] Accession Number: [id number] Patient Name: Raghav Underwood Date of : 1955 Date of Exam: 02-18-2025 Referring Physician: Leon Stark Ear Nose [address] [place] [address] Exam: MR Orbits, Face, Neck (C-/C+) CPT 57389 Room Description: [facility] 3.0T MR Orbits, Face, Neck (C-/C+) CPT 28959, MR Brain (C-/C+) CPT 34940 INDICATION / CLINICAL QUESTION: Reason For Exam: D36.9 - Benign neoplasm, unspecified site, , UNMAPPED LAB (MRI, BRAIN + ORBITS, W/WO CONTRAST) Reason For Exam: D36.9 - Benign neoplasm, unspecified site, , UNMAPPED LAB (MRI, BRAIN + ORBITS, W/WO CONTRAST) [facility] Protocol TECHNIQUE: MRI of the brain was performed with and without contrast utilizing sagittal and axial T1, axial T2, axial FLAIR, axial SWI, and axial DWI sequences, and post-contrast 3D T1 VIBE with multiplanar reformats. And MRI focused on the sinuses was performed utilizing sagittal T1, fat saturated coronal T2, coronal T1, axial T1, and axial fat saturated T2 sequences followed by postcontrast fat saturated axial and coronal T1-weighted sequences. 10 mL Elucirem intravenous contrast was administered. COMPARISON: Maxillofacial MRI performed 08/22/2024. FINDINGS: MRI BRAIN: BRAIN and EXTRA-AXIAL SPACES: Please see below regarding findings in the inferior frontal lobes related to the maxillofacial resection. There is mild prominence of the ventricles and sulci reflecting volume loss. There are scattered areas of nonspecific FLAIR hyperintensity in the white matter most likely reflecting chronic small vessel disease. Inferior frontal lobe encephalomalacia as described further below. Small chronic lacunar infarcts in the bilateral cerebellar hemispheres. No diffusion abnormality to indicate acute infarction. There is dural thickening and enhancement subjacent to the surgical site which is nonspecific. Smooth areas of enhancement probably reflect postsurgical change adjacent to a bifrontal superior craniotomy site. Areas inferiorly along the floor of the anterior cranial fossa anterior to the frontal lobes are in continuity with soft tissue thickening along the sinonasal Rufen olfactory grooves. No evidence of acute or subacute infarction. There is no hemorrhage, midline shift, or mass effect. There is no extra-axial collection. Flow voids are preserved in the dominant intracranial vessels. EXTRACRANIAL SOFT TISSUES: Orbits are unremarkable with right lens extraction noted. See below regarding postsurgical findings in the sinuses. BONES: Marrow signal is preserved. 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 Enhancing tissue along the sinonasal roof and olfactory grooves is demonstrated which measures up to a maximum of 8 mm in thickness to the left of midline on image 20 of series 7. The nasal septum, most of the ethmoids, and the anterior wall the sphenoid sinus have been resected. There is mucosal thickening which remains in the maxillary sinuses, along the margins of the sphenoid sinus, the remaining ethmoid air cells, and there is complete opacification of the frontal sinuses where there are also post surgical changes. Enhancement again extends along the dura at the level of the olfactory grooves, and there is now encephalomalacia anterior inferior frontal lobes mostly along the gyrus rectus bilaterally, left greater than right. There is a T2 hyperintense region along the right anterior frontal lobe with hemosiderin staining of demonstrated on the MRI sequences of the brain as well as enhancement likely reflecting a postsurgical area of encephalomalacia with postoperative blood products. Postsurgical changes of bifrontal craniotomy with smooth appearing dural thickening and enhancement at the upper portion of the craniotomy site which is probably postoperative. There continues to be asymmetric enhancement along the right foramen rotundum and vidian canal, for example image 17 series 8 at the foramen rotundum. IMPRESSION: Postsurgical changes from bifrontal craniotomy and maxillofacial resection. The previous heterogeneous sinonasal masses resection. There is residual soft tissue thickening and enhancement along the sinonasal root extending along the olfactory grooves. This is nonspecific and could reflect postsurgical changes and/or residual tumor. There also continues to be some asymmetric enhancement along the foramen rotundum and vidian canal, where perineural tumor is not excluded, and this should be correlated with histologic findings related to the resected tumor. Follow-up is recommended to assess stability. 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 Nonspecific white matter signal changes which most likely reflect chronic small vessel disease. 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 LEON EDDY MD [address] [place] [address], [phone], [place] - [facility] 5 10:09:59 Chronic sinusitis 23118323 Active 2024 LEON EDDY MD [address] [place] [address], [address], [place] - [facility] 5 10:10:38 Neoplastic disease 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 Active 2024 LEON EDDY MD [address] [place] [address], [phone], [place] - [facility] 5 11:34:25 Chronic rhinitis 86835928 Active 2024 LEON EDDY MD [address] [place] [address] [address], [place], [address], [facility] - [facility] 08:56:37 Benign neoplasm of nose, 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 Procedures Surgical History Date Name Laterality Status Provider Name and Address Organization Details Recorded Time 05/05/2025 NasalEndos copy_DP active IAN DOMINGUEZ [address] [facility],[address], [address], [facility] 05/05/2025 20:56:05 04/12/2025 JMSNasal/S inus Endoscopy- DEBRIDEMEN T completed LEON STARK MD [address] [place] [address], [phone], [facility] 04/12/2025 09:22:58 02/25/2025 JMSNasal/S inus Endoscopy- DEBRIDEMEN T completed LEON STARK MD [address], [address], [facility] 02/25/2025 08:57:58 Imaging Results None recorded. Procedure Notes None recorded. Medical Equipment None Reported. Allergies No known drug allergies Medications Name Sig Start Date Stop Date Status Note LastModified by Organization Details LastModified Time cyanocobala min (vit B-12) 100 mcg tablet TAKE 1 TABLET BY MOUTH DAILY 02/25 completed Not Available Not Available Not Available lisinopril 20 mg tablet TAKE 1 TABLET [...] completed Not Available Not Available Not Available mupirocin 2 % topical ointment APPLY A FINGERNAI L AMOUNT INTO SALINE RINSE BOTTLE, MIX WITH DISTILLED WATER AND SALINE PACKET, AND ADMINISTE R INTO BOTH NOSTRILS TWICE DAILY active Not Available Not Available No t Available methylpredn isolone 4 mg tablets in a dose pack FOLLOW PACKAGE DIRECTION S 08/13 completed Not Available Not Available Not Available hydroxyzine HCl 10 mg tablet TAKE 1 TABLET BY MOUTH FOUR TIMES DAILY NEEDED FOR ANXIETY 08/13 completed Not Available Not Available Not Available Vitals Date Recorded Body height Body mass index (BMI) Body weight Heart rate Systolic And Diastolic Provider Name and Address Organization Details Last Updated DateTime 02/25/2025 172.72 cm 25.8 kg/m2 21083.7 g 56 /min 141/84 mm[Hg] Henna Rodriguez [place] - [facility] 02/25/2025 08:40:17 Date Recorded Body height Body mass index (BMI) Body weight Provider Name and Address Organization Details Last Updated DateTime 05/05/2025 172.72 cm 25.8 kg/m2 66710.7 g Nora Burton [facility] 05/05/2025 14:13:46 Social History None recorded. Functional Status None recorded. Mental Status None recorded. Family History Nothing Reported. Medical History Condition Response Allergies/Hayfever N Heart Problems N Anxiety N Tonsil Infections N Emphysema N Migraines N Thyroid Problems N COPD N Depression N Developmental Delay N Glaucoma N Nasal or Sinus Problems Y Anemia N Immune System Disorder N Anesthesia Complications N Heart Attack (VT) N Other Skin Condition N Diabetes N [...] Diagnosis SNOMED-CT Code Diagnosis ICD10 Code Diagnosis IMO Codes Diagnosis Note [id number] LEON BELLO MD [facility] [address] [address] 08/13/2024 09:20:44 08/13/2024 12:32:28 Polyp of nasal cavity 968472943 J33.0 Patient with history of nasal polyps [...] o f uncertain behavior of respiratory tract 02425681 D38.6 Chronic sinusitis 647429 00 J32.8 [id number] LEON BELLO MD [facility] [address] [address] 08/25/2024 12:48:04 08/25/2024 14:23:48 Polyp of nasal cavity 184477322 J33.0 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 [...] o f uncertain behavior of respiratory tract 75563352 D38.6 Chronic sinusitis 839233 00 J32.8 [id number] LEON BELLO MD [facility] [address] [address] 02/25/2025 08:22:37 02/25/2025 08:59:58 Neoplastic disease 66006666 D36.9 85963 Chronic rhinitis 4646102 6 J31.0 2545 [id number] LEON BELLO MD [facility] [address] [address] 04/12/2025 09:01:00 04/12/2025 09:22:06 Benign neoplasm of nose, middle ear and accessory sinuses 170041843 D14.0 444448 [id number] IAN DOMINGUEZ [facility] [address] [address] 05/05/2025 13:52:46 05/05/2025 14:47:27 Benign neoplasm of nose, middle ear and accessory sinuses 184635790 D14.0 609742 Facial swelling 89933590 6 R22.0 980790 Health Concerns Section Related Observation LastModified by Organization Detai ls LastModified Time None Recorded Concern Status LastModified by Organization Details LastModified Time None Recorded Advance Directives Directive None Recorded Payers Insurance Date Sequence Insurance Name Policy Number Policy Lanier Covered Member ID Lanier Member ID Guarantor Name 05/05/2025 1 [employer] (MEDICARE REPLACEMENT/ ADVANTAGE - PPO) Raghav Underwood [id number] Raghav Underwood 08/13/2024 1 [employer] (PPO) Raghav Underwood [id number] Raghav Underwood Notes Date Note Type Note [...] about 1 year SNOT=24Nose=55 LEON STARK MD 100 [facility],[address], [address], [facility] - [facility] 08/13/2024 14:03:49 08/25/2024 text/html MD in [place] (licensed) and patient in [place] using Doximity audio/video. 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 The patient underwent surgery at [facility], which included neurosurgical intervention. The provider notes that the pathology results were favorable despite intracranial extension observed on imaging prior to surgery. The patient has been healing well postoperatively, with the scalp scar demonstrating good healing. The provider mentions that the MRI performed postoperatively will serve as a baseline for future evaluations. The patient reports no current use of nasal rinses, and the provider observes crusting inside the nose bilaterally. The patient underwent surgery approximately four months ago, and the provider notes residual swelling and scabbing in the nasal cavity, which may be contributing to discomfort. LEON STARK MD [address] [facility],[address], [address], [place] - [facility] 02/25/2025 12:08:50 04/12/2025 text/html Raghav Underwood is a 70-year-old male who presents for follow-up after resection of an inverted papilloma approximately six months ago on October 13. The surgery involved a skull base resection performed by Dr. Bae. The patient reports no bleeding, stuffiness, or congestion since the procedure. He has been using a NilMed Sinus Rinse with saline for nasal irrigation. The patient denies any recurrence of symptoms and states that breathing has been good. He recalls a small clump coming out of his nose a few weeks after the last visit but has had no significant issues since then. LEON STARK MD [address] [facility] 100, [place], [address], [place] - [facility] 04/12/2025 09:23:06
== END 2025-05-05 15:14 | disposition home or self-care (01) ==
LOC: HO.WFDLDS 15:13
PROVIDERS: Visit Provider Nurse Practitioner Family
DX: D72.819 Decreased white blood cell count, unspecified (principal); E87.5 Hyperkalemia; D64.9 Anemia, unspecified
CPT/HCPCS: 36415; 82607; 82728; 82746; 83540; 84132; 85027

== ENCOUNTER 2025-05-07 15:00 | Outpatient (AMB) | payer MEDICARE, SELFPAY ==
--- NOTE | 2025-05-07 15:01 | MHC.PC.OV ---
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: No Allergies No Known Allergies Allergy (Verified 05/07/25 15:13) Medication List - Last Reconciled 05/07/25 by Kathy Davenport CNP amlodipine 5 mg PO DAILY 90 days lisinopril 20 mg PO DAILY 90 days Tobacco use date assessed: 05/07/25 Fall risk assessment: No Falls in past year Last assessed Fall Risk: 05/07/25 Dental Screening Dental Screen Date: 05/07/25 Did you have a dental visit in the last 12 months?: Yes Did you have a dental problem in the last 6 months where you did not have access to dental care?: No Was dental information given to patient?: Patient has dentist HPI HPI Comments History of Present Illness Details 70-year-old male presents for hypertension follow-up. He admits to taking his medications as prescribed without adverse reactions. He notes that he has been making healthy lifestyle changes. Reports intermittent cracking/opening of the skin between his right 4th and 5 digits. Reports mild itching. Ongoing for the past 6 months. He has been using Dr. Austin's powder without improvement. He offers no complaints and denies acute symptoms at this time. [facility] Medical History Cataract of right eye Carpal tunnel syndrome on both sides Surgical History Hx of appendectomy History of knee surgery History of arthroscopic surgery of shoulder Family History Father Stomach cancer Social History Housing: House Alcohol intake: current Comment: Not too bad. I can tell somebodys been in there pt states Patient Tobacco Use Status: Former Tobacco user Cigarette Packs Per Day: 0.5 Cigarettes Per Day: 10 Years Smoked: 20 e-Cigarette/Vaping Use: Never Used Second Hand Smoke Exposure: No service: No Current occupational status: retired Current occupational exposures/hazards: No Cognitive needs: No Hearing needs: No Vision needs: No Questionnaire Thrive Questionnaire Date Thrive assessed: 02/01/25 SHANON-7 AMB Questionnaire SHANON-7 Date SHANON - 7 assessed: 02/01/25 Source: Developed by Drs. Tucker Gastelum, Christine Akins, Bart Walker and colleagues, with an educational wu from [employer] Review of Systems Const Details: Const Denies chills, Denies fatigue, Denies fever(s), Denies headache(s) and Denies weakness ENT Denies dizziness and Denies headache(s) Card Denies chest pain, Denies lightheadedness, Denies dyspnea and Denies other (Palpitations) Resp Denies cough, Denies dyspnea, Denies wheezing and Denies other ( shortness of breath) GI Denies abdominal pain, Denies melena, Denies hematochezia, Denies change in bowel habits, Denies dyspepsia and Denies nausea Denies hematuria and Denies dysuria Musc Denies abnormal gait, Denies myalgias, Denies arthralgias, Denies numbness and Denies tingling Skin/Breast Reports as per HPI Neuro Denies abnormal gait, Denies dizziness, Denies headache(s), Denies memory loss, Denies numbness, Denies Sensory deficit (Neuro), Denies tingling and Denies weakness Psych Denies anxiety, Denies depression, Denies memory loss Endo Denies cold intolerance, Denies fatigue, Denies heat intolerance, Denies polydipsia and Denies polyuria Aller/Immun Denies wheezing Physical exam (Primary Care) Vital Signs: Last Vital Signs Temp 98.0 F 05/07/25 15:04 Pulse 61 05/07/25 15:04 Resp 16 05/07/25 15:04 BP 134/60 05/07/25 15:21 Pulse Ox 98 05/07/25 15:04 Oxygen Delivery Method Room Air 05/07/25 15:04 BMI result Body Mass Index 27.1 Tobacco/Smoking Status: Tobacco use Status Tobacco use date assessed 05/07/25 05/07/25 15:07 Patient Tobacco Use Status Former Tobacco user 05/07/25 15:07 e-Cigarette/Vaping Use Never Used 05/07/25 15:07 Thrive Assessment: Date of Thrive Assessment Date Thrive assessed 02/01/25 05/07/25 15:07 Const Other: General: no acute distress and well developed Nutritional Appearance: well nourished Orientation/consciousness: patient oriented x3 HENMT Head: Yes normocephalic and Yes atraumatic Eyes General: appearance normal, both eyes and all related structures Pupils: Equal, round and reactive pupils present EOM: EOMs intact bilaterally Resp Effort & Inspection: normal respiratory effort Auscultation: clear to auscultation bilaterally Cardio Rate: regular rate Rhythm: regular rhythm Heart sounds: S1 normal heart sound present, S2 normal heart sound present, no gallops, no murmurs and no rubs GI Palpation (GI): No Abdominal aortic bruit present, Soft to palpation, nontender, No hepatosplenomegaly present and No Rebound tenderness present Auscultation: normal bowel sounds General: Yes no CVA tenderness Back/Spine/Pelvis Back: no CVA tenderness Cervical Spine: cervical ROM normal and No Cervical spine tenderness Thoracic/Lumbar Spine: thoraco-lumbar ROM normal, No pain with thoraco-lumbar ROM, No thoracic spinal tenderness and No lumbar spinal tenderness Extrem General: Yes normal to inspection, No edema and No calf tenderness Skin General: warm and dry. Normal skin color. Normal skin turgor Lesions: no lesions Rashes: Very dry skin with mild erythema between the right 4th and 5th digits, consistent with candidiasis Trauma: no lacerations or abrasions Wounds: no wounds Nails: normal Neuro General: patient oriented x3, gait normal and no focal neuro deficit Cranial nerves: Yes Equal, round and reactive pupils present Cognition (Neuro): normal cognition Gait exam (Neuro): Normal gait present Sensory Exam: No Sensory deficit (Neuro) Psych Appearance: grossly normal Affect: normal affect Attitude: cooperative Thought process: Normal thought process present Coding Level of Care Code Est Pt Level 4 (71416) Diagnoses Primary hypertension I10 Hypertension type: primary hypertension Normocytic anemia D64.9 Hyperkalemia E87.5 Tinea pedis B35.3 Assessment & Plan Assessment & Plan (1) Hypertension: Code(s): I10 - Essential (primary) hypertension Category: Medical Qualifiers: Hypertension type: primary hypertension Qualified Code(s): I10 - Essential (primary) hypertension Plan: Resting blood pressure is 134/60, within goal of less than 140/90. Continue current treatment regimen. Low-sodium diet encouraged. Follow-up in 3 months for transfer of care and hypertension. Return sooner with symptoms or concerns. Verbalized understanding and agreed with the plan. (2) Normocytic anemia: Code(s): D64.9 - Anemia, unspecified Category: Medical Plan: Recent RBC and H&H are slightly low, 4.16 and 2.5/34.7 respectively. Likely anemia of chronic disease. Will monitor trend annually or as needed. Verbalized understanding and agreed with plan. (3) Hyperkalemia: Code(s): E87.5 - Hyperkalemia Category: Medical Plan: Recent potassium level is normal, 4.7. (4) Tinea pedis: Code(s): B35.3 - Tinea pedis Category: Medical Plan: Reports intermittent cracking/opening of the skin between his right 4th and 5 digits. Reports mild itching. Ongoing for the past 6 months. He has been using Dr. Austin's powder without improvement. Very dry skin with mild erythema between the right 4th and 5th digits, consistent with candidiasis. Encouraged to keep skin between the toes clean and dry. Avoid applying powder to the area. Ketoconazole cream twice a day as needed ordered; advised to use as prescribed. Apply good moisturizing lotion like Cetaphil or Lubriderm to dry skin. Follow-up as needed. Verbalized understanding and agreed with the plan. Medications: New ketoconazole 2% 1 appl topical BID 30 grams 3RF
[2025-05-07 15:04] VITALS: BP 169/71; PULSE 61; RESP 16; TEMP 36.7; O2SAT 98; BMI 27.1
[2025-05-07 15:21] VITALS: BP 134/60
--- OUTSIDE RECORDS SUMMARY | 2025-05-07 16:40 | XMS_ITS | Patient Health Record ---
Author Organization [facility] Address [address] [address] Care Team Providers Care Service Desk Specialist Name Role Phone BEULAH DUMONT Primary [...] W/U Status Risk Notes Problem Lumbar sprain (477709393) Sprain of ligaments of lumbar spine, initial encounter (S33.5XXA) Active confirmed Problem Lumbosacral spondylosis without myelopathy (disorder) (73416039) Spondylosis without myelopathy or radiculopathy, lumbosacral region [...] Start Date Coverage End Date [facility] [address] [address] [place] [address] [id number] CHITO DE LA ROSA Self - patient is the insured 7 Medical (General) History Medical History History ICD Code lumbar dic disease Surgical History Surgery Date(Month/Year) left arm rotator cuff tear repair orthroscopic knee surgery colonoscopy- 2012 tonsillectomy
--- OUTSIDE RECORDS SUMMARY | 2025-05-07 16:40 | XMS_ITS | Continuity of Care Document ---
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 Smith and Dr. Bae at [facility], presents for evaluation of left-sided facial swelling. 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 There is mild edema involving the left intraorbital region, however the frontal, ethmoid, and maxillary sinuses are all nontender on palpation. Nasal endoscopy shows evidence of prior septectomy and sphenoid surgery with significant crusting, but no papilloma recurrence. It is unclear as to what the cause of his facial swelling is at the moment. Recommend the addition of mupirocin to his saline rinses for the next 6-8 weeks to cover for any underlying infectious processes. Follow up after completing the treatment course. Will also plan to repeat MRI imaging in 3 months to better assess the areas of swelling, however patient is aware to call the office should it recur to be seen sooner. All questions were answered. Patient was personally seen and evaluated by Dr. Bradshaw. Dorothy Ford PA-C assisted with the visit and documentation. [email or web address] Not available 05/05/2025 21:14:09 Plan of Treatment Reminders Order Date Submit Date Provider Last Modified By Organization Details Last Modified Time Details Appointments Establish ed 15 2024 02:15P M Bonifacio Nickfgren, DO Not available Not available Not available Establish ed 30 2025 01:30P M EVITA EDDY MD Not available Not available Not available Lab None recorded. Referral None recorded. Procedures None recorded. Surgeries None recorded. Imaging MRI, brain + orbits, w/wo contrast - Previous MRI done at [facility] on 02/18/252024 026 [email or web address] [facility] ([facility]), [address], [place], [address], 05/05/2025 21:19:07 Medication Orders mupirocin 2 % topical ointment [address] [id number], [address], [place], [id number], 05/05/2025 14:44:36 Patient TargetsNo targets recorded. Patient InstructionsNo instructions recorded. Reason for Referral None Reported. Problems Name Problem SNOMED Code Status Onset Date Resolution Date Notes Provider Name and Address Organization Details Recorded Time Polyp of nasal cavity 944113495 Active 2024 EVITA EDDY MD [address] [place] [address], [phone], 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 - [facility] 5 10:09:59 Chronic sinusitis 29111407 Active 2024 EVITA EDDY MD [address] [place] [address], [address], [facility] - [facility] 5 10:10:38 Neoplastic disease 26357851 Active 2024 EVITA EDDY MD [address], [address], [facility] - [facility] 11:34:25 Chronic rhinitis 08663396 Active 2024 EVITA EDDY MD [address] [address], [place], [address], [facility] - [facility] 08:56:37 Benign neoplasm of nose, middle ear and accessory sinuses 271370442 Active 2024 EVITA EDDY MD [address] [address], [place], [address], [place] - [facility] 09:22:28 Facial swelling 007559807 Active 2024 IAN DOMINGUEZ [address] [address], [place], [address], [facility] - [facility] 21:14:46 Problem Notes None recorded. Procedures Surgical History Date Name Laterality Status Provider Name and Address Organization Details Recorded Time 05/05/2025 NasalEndos copy_DP completed IAN DOMINGUEZ [address], [address], [facility] 05/05/2025 20:56:05 04/12/2025 JMSNasal/S inus Endoscopy- DEBRIDEMEN T completed EVITA STARK MD [address], [address], [facility] 04/12/2025 09:22:58 02/25/2025 JMSNasal/S inus Endoscopy- DEBRIDEMEN T completed EVITA STARK MD [address], [address], [facility] 02/25/2025 08:57:58 Imaging Results None recorded. Procedure Notes None recorded. Medical Equipment None Reported. Allergies No known drug allergies Medications Name Sig Start Date Stop Date Status Note LastModified by Organization Details LastModified Time cyanocobala min (vit B-12) 100 mcg tablet TAKE 1 TABLET BY MOUTH DAILY 08/14 /2025 completed Not Available Not Available Not Available [...] Updated DateTime 05/05/2025 172.72 cm 25.8 kg/m2 42467.7 g Nora Willingham [facility] 05/05/2025 14:13:46 Social History None recorded. Functional Status None recorded. Mental Status None recorded. Family History Nothing Reported. Medical History Condition Response Allergies/Hayfever N Heart Problems N Anxiety N Tonsil Infections N Emphysema N Migraines N Thyroid Problems N Glaucoma N Developmental Delay N Depression N COPD N Nasal or Sinus Problems Y Anemia N Immune System Disorder N Anesthesia Complications N Heart Attack (IA) N Other Skin Condition N Diabetes N [...] ICD10 Code Diagnosis IMO Codes Diagnosis Note [id number] EVITA BELLO MD [facility] [address] [address] 04/12/2025 09:01:00 04/12/2025 09:22:06 Benign neoplasm of nose, middle ear and accessory sinuses 509701853 D14.0 245540 [id number] IAN DOMINGUEZ [facility] [address] [address] 05/05/2025 13:52:46 05/05/2025 14:47:27 Benign neoplasm of nose, middle ear and accessory sinuses 972652920 D14.0 376333 Facial swelling 29350649 6 R22.0 [id number] Health Concerns Section Related Observation LastModified by Organization Detai ls LastModified Time None Recorded Concern Status LastModified by Organization Details LastModified Time None Recorded Payers Encounter Date Sequence Insurance Name Policy Number Policy Lanier Covered Member ID Lanier Member ID Guarantor Name 05/05/2025 1 [employer] (MEDICARE REPLACEMENT/ ADVANTAGE - PPO) [id number] Raghav Underwood [id number] Raghav Underwood Notes Date Note Type Note Provider Name and Address Organization Details Recorded Time 05/05/2025 text/html ROS as noted in the HPI 70 year old male, s/p combined endoscopic transnasal and 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 Smith and Dr. Bae at [facility], presents for evaluation of left-sided facial swelling. 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 Patient reports sudden onset of swelling involving the left brow ridge approximately three days ago. The next day, he developed swelling involving the infraorbital region on the same side. Denies fever, vision changes, associated pain, nasal congestion, purulent nasal drainage, and epistaxis. Sense of smell is diminished following a prior COVID infection. Patient states the swelling in his left eyebrow has subsided, however his eye still appears puffy. He has been using saline irrigation twice daily as instructed. Bonifacio Bradshaw, DO [address] [facility] [address], [place], [address], [place] - [facility] 05/06/2025 11:30:47
== END 2025-05-07 15:33 | disposition home or self-care (01) ==
LOC: HO.HMCFM 15:01
PROVIDERS: PCP Nurse Practitioner Family; Visit Provider Nurse Practitioner Family
DX: I10 Essential (primary) hypertension (principal); D64.9 Anemia, unspecified; E87.5 Hyperkalemia; B35.3 Tinea pedis

== ENCOUNTER → 2025-05-07 15:00 | Outpatient (BNVA) | payer MEDICARE, SELFPAY | PROVIDERS: PCP Nurse Practitioner Family; Visit Provider Nurse Practitioner Family | DX: I10 Essential (primary) hypertension (principal); D64.9 Anemia, unspecified; E87.5 Hyperkalemia; B35.3 Tinea pedis | CPT/HCPCS: 99212 ==